=== PATIENT | female | born 1950 | race Caucasian/White ===

== ENCOUNTER → 2016-11-21 | Outpatient (CLI) | payer OTHER ==
[2016-11-21 16:56] LABS: Blood Urea Nitrogen 22 mg/dL (7-17); Cholesterol 290 mg/dL (<200); Glucose 134 mg/dL (74-99); HDL Cholesterol 60 mg/dL (40-60); Lithium 0.8 mmol/L; Non-African American GFR(MDRD) 50 (>60 ml/min/1.73 sqM); Triglycerides 151 mg/dL (<150)
[2016-11-21 20:13] LABS: Hemoglobin A1C 5.8 % (4.2-6.1)
== END | disposition home or self-care (01) ==
LOC: LABWHC1 16:17
PROVIDERS: ATTEND Psychiatry & Neurology Psychiatry
DX: Z51.81 Encounter for therapeutic drug level monitoring (principal); Z79.899 Other long term (current) drug therapy
CPT/HCPCS: 36415; 80061; 80178; 82565; 82947; 83036; 84439; 84443; 84520

== ENCOUNTER → 2017-07-07 | Outpatient (CLI) | payer MEDICARE, OTHER ==
--- NOTE | 2017-07-08 13:03 | MM ---
Reason for exam: screening (asymptomatic). Last mammogram was performed 1 year and 2 months ago. History: Patient is postmenopausal. Benign stereotactic core biopsy of the right breast, December 15, 2002. Core biopsy of the left breast. 2 core biopsies of the right breast. Physical Findings: A clinical breast exam by your physician is recommended on an annual basis and results should be correlated with mammographic findings. MG 3D Screening Mammo W/Cad Bilateral CC and MLO view(s) were taken. Prior study comparison: May 16, 2016, bilateral MG screening mammo w CAD. April 30, 2015, bilateral MG screening mammo w CAD. April 13, 2014, bilateral MG screening mammo w CAD. The breast tissue is heterogeneously dense. This may lower the sensitivity of mammography. Finding: There are typically benign round calcifications in both breasts. There is no discrete abnormality. ASSESSMENT: Benign, BI-RAD 2 RECOMMENDATION: Routine screening mammogram of both breasts in 1 year.
--- NOTE | 2017-07-08 16:23 | BD ---
EXAMINATION TYPE: MG DEXA axial skeleton. DATE OF EXAM: 07/07/2017 COMPARISON: NONE CLINICAL HISTORY: Postmenopausal female Height: 4 ft 11 IN Weight: 218 FRAX RISK QUESTIONS: Alcohol (3 or more units per day): NO Family History (Parent hip fracture): NO Glucocorticoids (More than 3mos): NO (Ex: prednisone, prednisolone, methylprednisolone, dexamethasone, and hydrocortisone). History of Fracture in Adulthood: NO Secondary Osteoporosis: 1. Type 1 Diabetes: NO 2. Hyperthyroidism: NO 3. Menopause before 45: NO 4. Malnutrition: NO 5. Chronic liver disease: NO Rheumatoid Arthritis: NO Current Tobacco Use: NO RISK FACTORS HISTORY OF: Active: NO Postmenopausal woman: UNSURE Lost more than 2 inches in height since high school: YES MEDICATIONS: Additional Medications: LITHIUM, BLOOD PRESSURE MEDS, CHOLESTEROL MEDS, POTASSIUM,ZOLOFT, XYPREXA, LASIX,CALCIUM Additional History: EXAM MEASUREMENTS: Bone mineral densitometry was performed using the [employer] System. Bone mineral density as measured about the Lumbar spine is: ----- L1-L4(G/cm2): 0.974 T Score Values are as follows: ----- L2: -1.9 ----- L3: -1.3 ----- L4: -1.3 ----- L1-L4: -1.7 Bone mineral density has: Increased 1.0% since study of: 2014 Bone mineral density about the R hip (g/cm2): 0.765 Bone mineral density about the L hip (g/cm2): 0.835 T Score values are as follows: -----R Neck: -2.0 -----L Neck: -1.5 -----R Total: -0.3 -----L Total: -0.1 Bone mineral density has: Decreased -2.2% since study of: 2014 IMPRESSION: Osteopenia (T Score between -2.5 and -1) as noted by T score values There is slightly increased risk of fracture and the patient may be considered for treatment. Re-Screen 2-5 years. NOTE: T-SCORE=SD OF THE YOUNG ADULT MEAN.
== END | disposition home or self-care (01) ==
LOC: RADMAMWWP 15:28
PROVIDERS: ATTEND Family Medicine
DX: Z12.31 Encounter for screening mammogram for malignant neoplasm of breast (principal); M85.88 Other specified disorders of bone density and structure, other site; Z78.0 Asymptomatic menopausal state
CPT/HCPCS: 77080; 77063; G0202

== ENCOUNTER → 2017-12-19 | Outpatient (CLI) | payer MEDICARE, OTHER ==
[2017-12-19 12:34] LABS: Blood Urea Nitrogen 22 mg/dL (7-17); Cholesterol 147 mg/dL (<200); Glucose 128 mg/dL (74-99); HDL Cholesterol 64 mg/dL (40-60); LDL Cholesterol,Calculated 67 mg/dL (0-99); Lithium 0.7 mmol/L; Triglycerides 81 mg/dL (<150)
[2017-12-19 12:51] LABS: T4, Free (Free Thyroxine) 1.08 ng/dL (0.78-2.19)
== END | disposition home or self-care (01) ==
LOC: LABWHC1 11:58
PROVIDERS: ATTEND Psychiatry & Neurology Psychiatry
DX: Z51.81 Encounter for therapeutic drug level monitoring (principal); Z79.899 Other long term (current) drug therapy
CPT/HCPCS: 36415; 80061; 80178; 82565; 82947; 83036; 84439; 84443; 84520

== ENCOUNTER 2018-03-06 19:39 | Emergency (ER) | payer MEDICARE, OTHER ==
--- NOTE | 2018-03-06 20:16 | ED ---
General Adult HPI - General Chief complaint: Recheck/Abnormal Lab/Rx Stated complaint: Weakness Time Seen by Provider: 03/06/18 20:04 Source: patient Mode of arrival: ambulatory Limitations: no limitations - History of Present Illness Initial comments: 67 yoF presenting with poor appetite. Patient states it began 3 weeks ago and has been ongoing. She denies any F/C, chest pain, shortness of breath, N/V/D, abdominal pain, REYES, blurred vision, changes in medications, or worsening depression. Patient states the only other symptom is generalized shakiness. Patient does have a history of hypothyroidism and states she has been compliant with her medications. Patient is also on [place] for depression. - Related Data Allergies Allergy/AdvReac Type Severity Reaction Status Date / Time No Known Allergies Allergy Verified 03/06/18 19:46 Review of Systems ROS Statement: Those systems with pertinent positive or pertinent negative responses have been documented in the HPI. Review of Systems Constitutional: Denies fever, chills Eyes: Denies change in vision, Denies pain Ears, nose, mouth, throat: Denies headaches, Denies sore throat Cardiovascular: Denies chest pain. Denies palpitations Respiratory: Denies shortness of breath, Denies cough Gastrointestinal: Denies abdominal pain. Denies nausea, vomiting, diarrhea. Positive poor appetite Genitourinary: Denies hematuria, Denies infections Musculoskeletal: Denies pain, Denies swelling Integumentary: Denies rash Neurological: Denies headache, focal weakness, focal numbness. Positive shakiness Psychiatric: Denies anxiety, Denies depression Hematologic/Lymphatic: Denies easy bleeding or bruising ROS Other: All systems not noted in ROS Statement are negative. Past Medical History Past Medical History: Hyperlipidemia, Hypertension, Thyroid Disorder History of Any Multi-Drug Resistant Organisms: None Reported Past Surgical History: Hysterectomy, Tubal Ligation Past Psychological History: Anxiety, Depression Smoking Status: Former smoker Past Alcohol Use History: None Reported Past Drug Use History: None Reported General Exam - General Exam Comments Initial Comments: General: Awake, alert, No acute Distress HENT: Normocephalic. Atraumatic Eyes: PERRL. EOMI. No scleral icterus. No injected conjunctiva Neck: Full ROM. No thyromegaly or nodules Chest/Lungs: Clear to auscultation bilaterally. No wheezing, rhonchi, or rales Cardiac: Regular rate, rhythm. No murmurs or rubs Abdomen/GI: Soft, nontender, nondistended. No rebound, guarding, or rigidity. Musculoskeletal: Full ROM Skin: Warm, dry, intact Neurologic: A/Ox3, no weakness, no sensory deficit, no abnormal gait, no coordination deficit Limitations: no limitations Course Vital Signs 03/06/18 19:43 Temperature 98.4 F Pulse Rate 80 Respiratory 20 Rate Blood Pressure 131/60 O2 Sat by Pulse 96 Oximetry Medical Decision Making - Medical Decision Making 67-year-old female presenting with decreased appetite. Initial exam the patient is awake, alert, no acute distress. VSS. Patient has no other complaints besides decreased appetite. Laboratory workup reveals hypernatremia , ROSSY, and dehydration. At thi time no further emergent workup is indicated. Discussed with the patient following up with PCP on Thursday and staying hydrated. She was given return to ED instruction. Patient stable for discharge. - Lab Data Result diagrams: 03/06/18 20:50 03/06/18 20:50 Lab Results 03/06/18 03/06/18 03/06/18 Range/Units 20:50 20:50 20:50 WBC 9.5 (3.8-10.6) k/uL RBC 4.29 (3.80-5.40) m/uL Hgb 14.0 (11.4-16.0) gm/dL Hct 41.1 (34.0-46.0) % MCV 95.6 (80.0-100.0) fL MCH 32.6 (25.0-35.0) pg MCHC 34.1 (31.0-37.0) g/dL RDW 12.4 (11.5-15.5) % Plt Count 230 (150-450) k/uL Neutrophils % 63 % Lymphocytes % 27 % Monocytes % 5 % Eosinophils % 2 % Basophils % 0 % Neutrophils # 6.1 (1.3-7.7) k/uL Lymphocytes # 2.6 (1.0-4.8) k/uL Monocytes # 0.5 (0-1.0) k/uL Eosinophils # 0.2 (0-0.7) k/uL Basophils # 0.0 (0-0.2) k/uL Sodium 149 H (137-145) mmol/L Potassium 4.1 (3.5-5.1) mmol/L Chloride 109 H (98-107) mmol/L Carbon Dioxide 26 (22-30) mmol/L Anion Gap 14 mmol/L BUN 25 H (7-17) mg/dL Creatinine 1.10 H (0.52-1.04) mg/dL Est GFR (CKD-EPI)AfAm 61 (>60 ml/min/1.73 sqM) Est GFR (CKD-EPI)NonAf 53 (>60 ml/min/1.73 sqM) Glucose 101 H (74-99) mg/dL Calcium 10.4 H (8.4-10.2) mg/dL TSH 0.508 (0.465-4.680) mIU/L Urine Color Yellow Urine Appearance Clear (Clear) Urine pH 6.5 (5.0-8.0) Ur Specific [place] 1.015 (1.001-1.035) Urine Protein Negative (Negative) Urine Glucose (UA) Negative (Negative) Urine Ketones Negative (Negative) Urine Blood Trace H (Negative) Urine Nitrite Negative (Negative) Urine Bilirubin Negative (Negative) Urine Urobilinogen <2.0 (<2.0) mg/dL Ur Leukocyte Esterase Negative (Negative) Urine RBC <1 (0-5) /hpf Urine WBC 1 (0-5) /hpf Ur Squamous Epith Cells 1 (0-4) /hpf [place] 0.5 mmol/L Disposition Clinical Impression: Poor appetite, Hypernatremia, ROSSY (acute kidney injury) Disposition: HOME SELF-CARE Condition: Good Additional Instructions: Drink lots of water. Follow up with your primary care doctor on Thursday. Is patient prescribed a controlled substance at d/c from ED?: No Referrals: González Nunez MD [Primary Care Provider] - 1-2 days
[2018-03-06 21:04] LABS: Basophils % (A) 0 %; Eosinophils # (A) 0.2 k/uL (0-0.7); Eosinophils % (A) 2 %; HCT 41.1 % (34.0-46.0); Lymphocytes # (A) 2.6 k/uL (1.0-4.8); Lymphocytes % (A) 27 %; MCH 32.6 pg (25.0-35.0); MCHC 34.1 g/dL (31.0-37.0); MCV 95.6 fL (80.0-100.0); Mean Platelet Volume 6.9; Monocytes # (A) 0.5 k/uL (0-1.0); Monocytes % (A) 5 %; Neutrophils # (A) 6.1 k/uL (1.3-7.7); Neutrophils % (A) 63 %; Platelet Count 230 k/uL (150-450); RBC 4.29 m/uL (3.80-5.40); RDW 12.4 % (11.5-15.5); WBC 9.5 k/uL (3.8-10.6)
[2018-03-06 21:09] LABS: Appearance,Urine Clear (Clear); Bilirubin,Urine Negative (Negative); Blood,Urine Trace (Negative); Color,Urine Yellow; Glucose,Urine (UA) Negative (Negative); Ketones,Urine Negative (Negative); Leukocyte Esterase,Urine Negative (Negative); Nitrite,Urine Negative (Negative); PH, Urine 6.5 (5.0-8.0); Protein,Urine Negative (Negative); RBC,Urine <1 /hpf (0-5); Specific Gravity,Urine 1.015 (1.001-1.035); Squamous Epithelial Cell,Urine 1 /hpf (0-4); Urobilinogen,Urine <2.0 mg/dL (<2.0); WBC,Urine 1 /hpf (0-5)
[2018-03-06 21:16] LABS: Calcium 10.4 mg/dL (8.4-10.2); Lithium 0.5 mmol/L; Potassium 4.1 mmol/L (3.5-5.1)
[2018-03-06 22:29] VITALS: BP 103/59; PULSE 74; RESP 18; TEMP 97.4
== END 2018-03-06 22:48 | disposition home or self-care (01) ==
LOC: EC 19:39
DX: E87.0 Hyperosmolality and hypernatremia (principal); N17.9 Acute kidney failure, unspecified; E86.0 Dehydration; R63.8 Other symptoms and signs concerning food and fluid intake; E03.9 Hypothyroidism, unspecified; F32.9 Major depressive disorder, single episode, unspecified; Z87.891 Personal history of nicotine dependence; Z79.899 Other long term (current) drug therapy
CPT/HCPCS: 36415; 80048; 80178; 81001; 84443; 85025; 99284

== ENCOUNTER → 2018-04-23 | Outpatient (CLI) | payer MEDICARE, OTHER ==
--- NOTE | 2018-04-23 18:50 | CT ---
EXAMINATION TYPE: CT brain wo con DATE OF EXAM: 04/23/2018 COMPARISON: 11/07/2011 HISTORY: Memory loss CT DLP: 1055 mGycm Automated exposure control for dose reduction was used. FINDINGS: There is mild cerebral cortical atrophy. There is no mass effect nor midline shift. There is no sign of intracranial hemorrhage. The calvarium appears intact. IMPRESSION: MILD ATROPHY. NO ACUTE INTRACRANIAL ABNORMALITY. THERE IS SOME OPACIFICATION OF THE RIGHT MASTOID AIR CELLS COMPARED TO OLD EXAM CONSISTENT WITH MASTOIDITIS.
== END | disposition home or self-care (01) ==
LOC: RADCTMAIN 15:46
PROVIDERS: ATTEND Family Medicine
DX: G31.9 Degenerative disease of nervous system, unspecified (principal)
CPT/HCPCS: 70450

== ENCOUNTER → 2018-05-08 | Outpatient (CLI) | payer MEDICARE, OTHER ==
[2018-05-08 11:27] LABS: Lithium 0.9 mmol/L
[2018-05-08 11:44] LABS: T4, Free (Free Thyroxine) 1.43 ng/dL (0.78-2.19)
== END | disposition home or self-care (01) ==
LOC: LABWHC1 10:41
PROVIDERS: ATTEND Psychiatry & Neurology Psychiatry
DX: Z51.81 Encounter for therapeutic drug level monitoring (principal); Z79.899 Other long term (current) drug therapy
CPT/HCPCS: 36415; 80178; 82565; 84439; 84443; 84520

== ENCOUNTER → 2018-06-05 | Outpatient (CLI) | payer MEDICARE, OTHER | END | disposition home or self-care (01) | LOC: LABWHC1 10:51 | PROVIDERS: ATTEND Psychiatry & Neurology Psychiatry | DX: Z51.81 Encounter for therapeutic drug level monitoring (principal); Z79.899 Other long term (current) drug therapy | CPT/HCPCS: 36415; 82565; 84520 ==

== ENCOUNTER → 2018-07-03 | Outpatient (CLI) | payer MEDICARE, OTHER | END | disposition home or self-care (01) | LOC: LABWHC1 11:36 | PROVIDERS: ATTEND Psychiatry & Neurology Psychiatry | DX: Z51.81 Encounter for therapeutic drug level monitoring (principal); Z79.899 Other long term (current) drug therapy | CPT/HCPCS: 36415; 82565; 84520 ==

== ENCOUNTER → 2018-07-08 | Outpatient (CLI) | payer MEDICARE, OTHER ==
--- NOTE | 2018-07-13 11:26 | MM ---
Reason for exam: screening (asymptomatic). Last mammogram was performed 1 year ago. History: Patient is postmenopausal. Benign stereotactic core biopsy of the right breast, December 15, 2002. Core biopsy of the left breast. 2 core biopsies of the right breast. Physical Findings: A clinical breast exam by your physician is recommended on an annual basis and results should be correlated with mammographic findings. MG 3D Screening Mammo W/Cad Bilateral CC and MLO view(s) were taken. Prior study comparison: July 07, 2017, bilateral MG 3d screening mammo w/cad. May 16, 2016, bilateral MG screening mammo w CAD. The breast tissue is heterogeneously dense. This may lower the sensitivity of mammography. Previous mammotome biopsy in the right breast. No significant changes when compared with prior studies. ASSESSMENT: Negative, BI-RAD 1 RECOMMENDATION: Routine screening mammogram of both breasts in 1 year.
== END | disposition home or self-care (01) ==
LOC: RADMAMWWP 16:14
PROVIDERS: ATTEND Family Medicine
DX: Z12.31 Encounter for screening mammogram for malignant neoplasm of breast (principal)
CPT/HCPCS: 77063; 77067

== ENCOUNTER → 2018-09-13 | Outpatient (CLI) | payer MEDICARE ==
--- NOTE | 2018-09-14 14:41 | XR ---
Thoracic spine HISTORY: Tingling and numbness in hands, paresthesia 3 views of the thoracic spine There is a mild spinal curvature. Multilevel spondylosis is present. Thoracic vertebral bodies show h eight and alignment. No evident paraspinal mass. Bone mineralization is reduced. Disc spaces reduced in the midthoracic spine. IMPRESSION: Thoracic spondylosis. Suspect degenerative disc disease.
--- NOTE | 2018-09-14 14:42 | XR ---
Cervical spine HISTORY: Paresthesia 5 views of the cervical spine There is multilevel facet arthropathy. No evident foraminal encroachment. Cervical vertebral bodies s how preserved height and alignment. Bone mineralization is reduced. Mild loss of disc height C5-6. Th ere is associated spondylosis. IMPRESSION: Osteopenia. Mild degenerative disc disease. Cervical MRI may be of benefit.
== END | disposition home or self-care (01) ==
LOC: RADXRMAIN 16:30
PROVIDERS: ATTEND Nurse Practitioner
DX: M47.814 Spondylosis without myelopathy or radiculopathy, thoracic region (principal); M50.30 Other cervical disc degeneration, unspecified cervical region; M85.88 Other specified disorders of bone density and structure, other site
CPT/HCPCS: 72050; 72072

== ENCOUNTER 2019-01-10 13:56 | Emergency (ER) | payer MEDICARE, OTHER ==
[2019-01-10 14:05] VITALS: RESP 18; TEMP 98.3
[2019-01-10] MEDS ORDERED: ONDANSETRON 4 MG/2 ML VIAL IVP STA (14:33)
[2019-01-10] MEDS ORDERED: LORazepam 2 MG/ML INJ IV STA (14:33)
[2019-01-10] MEDS ORDERED: SODIUM CHLORIDE 0.9% 1,000 ML IV STA (14:33)
--- NOTE | 2019-01-10 15:05 | XR ---
EXAMINATION TYPE: XR KUB DATE OF EXAM: 01/10/2019 COMPARISON: NONE HISTORY: Pain TECHNIQUE: One view abdominal series FINDINGS: The osseous structures are intact. The bowel gas pattern is nonspecific. Curvature the spine noted. Lung do are clear. Calcifications in the pelvis are too small to characterize. Findings are nonsp ecific.. IMPRESSION: 1. Nonspecific abdomen.
--- NOTE | 2019-01-10 15:13 | ED ---
General Adult HPI - General Chief complaint: Nausea/Vomiting/Diarrhea Stated complaint: Vomiting Time Seen by Provider: 01/10/19 14:12 Source: patient, RN notes reviewed, old records reviewed Mode of arrival: ambulatory Limitations: no limitations - History of Present Illness Initial comments: 68-year-old female patient with past medical history of depression, anxiety, hyperlipidemia presents to ED with approximately 2 days of nausea and vomiting. Patient reports that she has only been eating peaches and cottage cheese the last 4 weeks. Patient states that is all she wants to eat. Now patient reports that when she attempts to eat peaches or cottage cheese she becomes nauseous and vomits. Patient states that this is ongoing for 2 days. Patient denies any abdominal pain. Patient denies any chest pain or shortness of breath. Patient denies all other complaints. Systemic: Pt denies fatigue, myalgia, fever/chills, rash. Pt denies weakness, night sweats, weight loss. Neuro: Pt denies headache, visual disturbances, syncope or pre-syncope. HEENT: Pt denies ocular discharge or irritation, otalgia, rhinorrhea, pharyngitis or notable lymphadenopathy. Cardiopulmonary: Pt denies chest pain, SOB, heart palpitations, dyspnea on exertion. Abdominal/GI: Pt denies abdominal pain, diarrhea. : Pt denies dysuria, burning w/ urination, frequency/urgency. Denies new onset urinary or bowel incontinence. MSK: Pt denies myalgia, loss of strength or function in extremities. Neuro: Pt denies new onset weakness, paresthesias. - Related Data Home Medications Medication Instructions Recorded Confirmed Atenolol 25 mg PO DAILY 01/10/19 01/10/19 Atorvastatin Calcium [Lipitor] 40 mg PO DAILY 01/10/19 01/10/19 Calcium Carbonate/Vitamin D3 2 tab PO DAILY 01/10/19 01/10/19 [Calcium 600-Vit D3 400 Tablet] Furosemide [Lasix] 40 mg PO DAILY 01/10/19 01/10/19 Levothyroxine Sodium [Synthroid] 100 mcg PO DAILY 01/10/19 01/10/19 [place] Carbonate [Lithobid] 600 mg PO HS 01/10/19 01/10/19 OLANZapine [ZyPREXA] 5 mg PO HS 01/10/19 01/10/19 Potassium Chloride 8 meq PO DAILY 01/10/19 01/10/19 fluvoxaMINE MALEATE [Fluvoxamine 100 mg PO BID 01/10/19 01/10/19 Maleate] metFORMIN HCL [Glucophage] 500 mg PO BID 01/10/19 01/10/19 Previous Rx's Medication Instructions Recorded Ondansetron Odt [Zofran ODT] 4 mg PO Q8HR PRN #20 tab 01/10/19 Ondansetron [Zofran] 4 mg PO Q8HR PRN #15 tab 01/10/19 Allergies Allergy/AdvReac Type Severity Reaction Status Date / Time TRAVIST-D AdvReac Uncoded 01/10/19 14:49 Review of Systems ROS Statement: Those systems with pertinent positive or pertinent negative responses have been documented in the HPI. ROS Other: All systems not noted in ROS Statement are negative. Past Medical History Past Medical History: Hyperlipidemia, Hypertension, Thyroid Disorder History of Any Multi-Drug Resistant Organisms: None Reported Past Surgical History: Hysterectomy, Tubal Ligation Past Psychological History: Anxiety, Depression Smoking Status: Never smoker Past Alcohol Use History: None Reported Past Drug Use History: None Reported General Exam - General Exam Comments Initial Comments: Constitutional: NAD, AOX3, Pt has pleasant affect. HEENT: NC/AT, trachea midline, neck supple, no lymphadenopathy. Posterior pharynx non erythematous, without exudates. External ears appear normal, without discharge. Mucous membranes moist. Eyes PERRLA, EOM intact. There is no scleral icterus. No pallor noted. Cardiopulmonary: RRR, no murmurs, rubs or gallops, no JVD noted. Lungs CTAB in anterior and posterior do. No peripheral edema. Abdominal exam: Abdomen soft and non-distended. Abdomen non-tender to palpation in all 4 quadrants. Bowel sounds active in LLQ. No hepatosplenomegaly. No ecchymosis Neuro: CN II-XII grossly intact. No nuchal rigidity. MSK: No posterior calf tenderness bilaterally, homans sign negative bilaterally. Posterior tibialis and radial pulse +2 bilaterally. Sensation intact in upper and lower extremities. Full active ROM in upper and lower extremities, 5/5 stregnth. Limitations: no limitations Course Vital Signs 01/10/19 01/10/19 14:01 15:26 Temperature 98.3 F Pulse Rate 117 H 79 Respiratory 18 18 Rate Blood Pressure 137/84 131/67 O2 Sat by Pulse 96 97 Oximetry Medical Decision Making - Medical Decision Making 68-year-old female patient with past medical history of depression, anxiety, hyperlipidemia, type 2 diabetes presents to ED with approximately 2 days of nausea and vomiting. Patient reports that she has only been eating peaches and cottage cheese the last 4 weeks. Patient states that is all she wants to eat. Now patient reports that when she attempts to eat peaches or cottage cheese she becomes nauseous and vomits. Patient states that this is ongoing for 2 days. Pt VSS, afebrile. Physical exam did not display acute pathology. Abdomen nontender to palpation. Laboratory investigations revealed glucose 131. KUB displayed nonspecific abdomen. Patient tolerating oral intake with Zofran. Patient to be discharged with prescription of Zofran, will follow-up with primary care provider in 1-2 days. Case discussed with Dr. Wood. - Lab Data Lab Results 01/10/19 Range/Units 16:01 POC Glucose (mg/dL) 131 H (75-99) mg/dL POC Glu Archivist Luzma Lucio Disposition Clinical Impression: Nausea & vomiting Disposition: HOME SELF-CARE Condition: Stable Instructions (If sedation given, give patient instructions): Acute Nausea and Vomiting (ED) Additional Instructions: Patient to adhere to previously discussed treatment plan and will take medication(s) as directed. Patient to follow up with PCP in 1-2 days. Patient to return to ED if symptoms do not improve. Please follow-up with primary care provider. Please use Zofran as needed for nausea. Please return to ED if new s/sx develop or if condition worsens in anyway. Prescriptions: Ondansetron [Zofran] 4 mg PO Q8HR PRN #15 tab PRN Reason: Nausea Ondansetron Odt [Zofran ODT] 4 mg PO Q8HR PRN #20 tab PRN Reason: Nausea Is patient prescribed a controlled substance at d/c from ED?: No Referrals: [facility] [Primary Care Provider] - 1-2 days
[2019-01-10 15:27] VITALS: BP 131/67; PULSE 79
[2019-01-10 16:05] LABS: Glucose,Whole Blood 131 mg/dL (75-99)
== END 2019-01-10 16:38 | disposition home or self-care (01) ==
LOC: EC 13:56
DX: R11.2 Nausea with vomiting, unspecified (principal); E78.5 Hyperlipidemia, unspecified; I10 Essential (primary) hypertension; E07.9 Disorder of thyroid, unspecified; E11.9 Type 2 diabetes mellitus without complications; F32.9 Major depressive disorder, single episode, unspecified; F41.9 Anxiety disorder, unspecified; Z88.8 Allergy status to other drugs, medicaments and biological substances; Z79.84 Long term (current) use of oral hypoglycemic drugs; Z79.890 Hormone replacement therapy; Z79.899 Other long term (current) drug therapy
CPT/HCPCS: 99284; 96374; 96375; 36415; 74018; J2060; J2405

== ENCOUNTER 2019-01-15 15:15 | Inpatient (IN) | payer MEDICARE, MEDICAID ==
--- NOTE | 2019-01-15 15:37 | ED ---
General Adult HPI - General Chief complaint: Psychiatric Symptoms Stated complaint: psychiatric eval Time Seen by Provider: 01/15/19 15:18 Source: patient, EMS, RN notes reviewed Mode of arrival: EMS Limitations: no limitations - History of Present Illness Initial comments: Patient is a pleasant 68-year-old female presenting to the emergency department because she is "fed up". Patient states she has not been sleeping well and does have racing thoughts. Patient denies suicidal or homicidal thoughts. Patient denies hallucinations. Patient denies alcohol or street drug use. No new physical complaints. Patient states she has not been eating well because she has lost her appetite. Patient feels she may be losing some weight. Patient canceled Meals on Wheels. Patient has been off her medications around 4 months. Patient has not made her [facility] appointments the last 4 months as well. - Related Data Home Medications Medication Instructions Recorded Confirmed Atenolol 25 mg PO DAILY 01/10/19 01/15/19 Atorvastatin Calcium [Lipitor] 40 mg PO DAILY 01/10/19 01/15/19 Calcium Carbonate/Vitamin D3 2 tab PO DAILY 01/10/19 01/15/19 [Calcium 600-Vit D3 400 Tablet] Furosemide [Lasix] 40 mg PO DAILY 01/10/19 01/15/19 Levothyroxine Sodium [Synthroid] 100 mcg PO DAILY 01/10/19 01/15/19 [place] Carbonate [Lithobid] 600 mg PO HS 01/10/19 01/15/19 OLANZapine [ZyPREXA] 5 mg PO HS 01/10/19 01/15/19 Potassium Chloride 8 meq PO DAILY 01/10/19 01/15/19 fluvoxaMINE MALEATE [Fluvoxamine 100 mg PO BID 01/10/19 01/15/19 Maleate] metFORMIN HCL [Glucophage] 500 mg PO BID 01/10/19 01/15/19 Allergies Allergy/AdvReac Type Severity Reaction Status Date / Time TRAVIST-D AdvReac Uncoded 01/15/19 16:42 Review of Systems ROS Statement: Those systems with pertinent positive or pertinent negative responses have been documented in the HPI. ROS Other: All systems not noted in ROS Statement are negative. Constitutional: Denies: fever Eyes: Denies: eye pain ENT: Denies: ear pain Respiratory: Denies: cough, dyspnea Cardiovascular: Denies: chest pain Endocrine: Reports: fatigue Gastrointestinal: Denies: abdominal pain Genitourinary: Denies: dysuria Musculoskeletal: Denies: back pain Skin: Denies: rash Psychiatric: Denies: auditory hallucinations, visual hallucinations, homicidal thoughts, suicidal thoughts Past Medical History Past Medical History: Hyperlipidemia, Hypertension, Thyroid Disorder History of Any Multi-Drug Resistant Organisms: None Reported Past Surgical History: Hysterectomy, Tubal Ligation Past Psychological History: Anxiety, Depression Smoking Status: Never smoker Past Alcohol Use History: None Reported Past Drug Use History: None Reported General Exam Limitations: no limitations General appearance: alert, in no apparent distress Head exam: Present: atraumatic Eye exam: Present: normal appearance, PERRL Neck exam: Present: normal inspection Respiratory exam: Present: normal lung sounds bilaterally Cardiovascular Exam: Present: regular rate, normal rhythm GI/Abdominal exam: Present: soft. Absent: tenderness Extremities exam: Present: normal inspection Neurological exam: Present: alert Psychiatric exam: Present: flat affect Skin exam: Present: normal color. Absent: rash Course Vital Signs 01/15/19 01/15/19 15:30 18:37 Temperature 98.6 F 97.8 F Pulse Rate 75 94 Respiratory 18 18 Rate Blood Pressure 133/84 133/64 O2 Sat by Pulse 100 97 Oximetry EKG Findings - EKG Comments: EKG Findings:: Normal sinus rhythm 98. MS 134. QRS 76. QT 338. QTC were 31. Normal axis. Normal QRS. No acute ST change. Medical Decision Making - Medical Decision Making Patient was seen by mental health services with plans for transfer for psychiatric admission. Positive clinical certificate completed. Reportedly family also had concerns that patient was urinating on herself and not using the restroom. - Lab Data Result diagrams: 01/15/19 16:30 01/15/19 16:30 Lab Results 01/15/19 01/15/19 01/15/19 Range/Units 16:30 16:30 16:30 WBC 9.0 (3.8-10.6) k/uL RBC 4.68 (3.80-5.40) m/uL Hgb 15.1 (11.4-16.0) gm/dL Hct 47.1 H (34.0-46.0) % MCV 100.6 H (80.0-100.0) fL MCH 32.3 (25.0-35.0) pg MCHC 32.1 (31.0-37.0) g/dL RDW 12.5 (11.5-15.5) % Plt Count 241 (150-450) k/uL Neutrophils % 68 % Lymphocytes % 24 % Monocytes % 4 % Eosinophils % 2 % Basophils % 0 % Neutrophils # 6.1 (1.3-7.7) k/uL Lymphocytes # 2.2 (1.0-4.8) k/uL Monocytes # 0.4 (0-1.0) k/uL Eosinophils # 0.2 (0-0.7) k/uL Basophils # 0.0 (0-0.2) k/uL Sodium 144 (137-145) mmol/L Potassium 4.1 (3.5-5.1) mmol/L Chloride 113 H (98-107) mmol/L Carbon Dioxide 24 (22-30) mmol/L Anion Gap 7 mmol/L BUN 24 H (7-17) mg/dL Creatinine 0.87 (0.52-1.04) mg/dL Est GFR (CKD-EPI)AfAm 81 (>60 ml/min/1.73 sqM) Est GFR (CKD-EPI)NonAf 70 (>60 ml/min/1.73 sqM) Glucose 128 H (74-99) mg/dL Calcium 11.2 H (8.4-10.2) mg/dL Urine Color Yellow Urine Appearance Cloudy H (Clear) Urine pH 6.5 (5.0-8.0) Ur Specific [place] 1.013 (1.001-1.035) Urine Protein Negative (Negative) Urine Glucose (UA) Negative (Negative) Urine Ketones Negative (Negative) Urine Blood Negative (Negative) Urine Nitrite Negative (Negative) Urine Bilirubin Negative (Negative) Urine Urobilinogen <2.0 (<2.0) mg/dL Ur Leukocyte Esterase Trace H (Negative) Urine RBC <1 (0-5) /hpf Urine WBC 8 H (0-5) /hpf Ur Squamous Epith Cells 11 H (0-4) /hpf Amorphous Sediment Rare H (None) /hpf Hyaline Casts 1 (0-2) /lpf Urine Mucus Rare H (None) /hpf Urine Opiates Screen Not Detected (NotDetected) Ur Oxycodone Screen Not Detected (NotDetected) Urine Methadone Screen Not Detected (NotDetected) Ur Propoxyphene Screen Not Detected (NotDetected) Ur Barbiturates Screen Not Detected (NotDetected) U Tricyclic Antidepress Not Detected (NotDetected) Ur Phencyclidine Scrn Not Detected (NotDetected) Ur Amphetamines Screen Not Detected (NotDetected) U Methamphetamines Scrn Not Detected (NotDetected) U Benzodiazepines Scrn Not Detected (NotDetected) Urine Cocaine Screen Not Detected (NotDetected) U Marijuana (THC) Screen Not Detected (NotDetected) Serum Alcohol <10 mg/dL Disposition Clinical Impression: Depression Disposition: TRANSFER TO PSYCH HOSP/UNIT Is patient prescribed a controlled substance at d/c from ED?: No Referrals: [facility] [Primary Care Provider] - 1-2 days
[2019-01-15 16:46] LABS: Basophils % (A) 0 %; Eosinophils # (A) 0.2 k/uL (0-0.7); Eosinophils % (A) 2 %; HCT 47.1 % (34.0-46.0); HGB 15.1 gm/dL (11.4-16.0); Lymphocytes # (A) 2.2 k/uL (1.0-4.8); Lymphocytes % (A) 24 %; MCH 32.3 pg (25.0-35.0); MCHC 32.1 g/dL (31.0-37.0); MCV 100.6 fL (80.0-100.0); Mean Platelet Volume 7.1; Monocytes # (A) 0.4 k/uL (0-1.0); Monocytes % (A) 4 %; Neutrophils # (A) 6.1 k/uL (1.3-7.7); Neutrophils % (A) 68 %; Platelet Count 241 k/uL (150-450); RBC 4.68 m/uL (3.80-5.40); RDW 12.5 % (11.5-15.5)
[2019-01-15 16:49] LABS: Amorphous Sediment,Urine Rare /hpf; Appearance,Urine Cloudy (Clear); Bilirubin,Urine Negative (Negative); Blood,Urine Negative (Negative); Color,Urine Yellow; Glucose,Urine (UA) Negative (Negative); Hyaline Casts,Urine 1 /lpf (0-2); Ketones,Urine Negative (Negative); Leukocyte Esterase,Urine Trace (Negative); Mucus,Urine Rare /hpf; Nitrite,Urine Negative (Negative); PH, Urine 6.5 (5.0-8.0); Protein,Urine Negative (Negative); RBC,Urine <1 /hpf (0-5); Specific Gravity,Urine 1.013 (1.001-1.035); Squamous Epithelial Cell,Urine 11 /hpf (0-4); Urobilinogen,Urine <2.0 mg/dL (<2.0); WBC,Urine 8 /hpf (0-5)
[2019-01-15 16:54] LABS: Alcohol <10 mg/dL; Anion Gap 7 mmol/L; Blood Urea Nitrogen 24 mg/dL (7-17); Calcium 11.2 mg/dL (8.4-10.2); Carbon Dioxide 24 mmol/L (22-30); Chloride 113 mmol/L (98-107); Glucose 128 mg/dL (74-99); Potassium 4.1 mmol/L (3.5-5.1); Sodium 144 mmol/L (137-145)
[2019-01-15 16:58] LABS: Amphetamine Screen,Urine Not Detected (NotDetected); Barbiturate Screen,Urine Not Detected (NotDetected); Benzodiazepines Screen,Urine Not Detected (NotDetected); Cocaine Screen,Urine Not Detected (NotDetected); Methadone Screen, Urine Not Detected (NotDetected); Opiate Screen,Urine Not Detected (NotDetected); Oxycodone Screen, Urine Not Detected (NotDetected); Phencyclidine Screen,Urine Not Detected (NotDetected); Tricyclic Antidepressant,Urine Not Detected (NotDetected); Urn Cannabinoid Scrn Not Detected (NotDetected)
[2019-01-15] MEDS: LORazepam 1 MG TAB PO STA ×2 (18:30→18:32)
[2019-01-15] MEDS ORDERED: LORazepam 2 MG/ML INJ IM STA (18:34)
[2019-01-15] MEDS ORDERED: ACETAMINOPHEN TAB 325 MG TAB PO PRN (20:17)
[2019-01-15] MEDS ORDERED: MAGNESIUM HYDROXIDE 2,400 MG/10 ML CUP PO PRN (20:17)
[2019-01-16 09:18] LABS: Lithium 0.7 mmol/L
[2019-01-16] MEDS: ONDANSETRON ODT 4 MG TAB PO PRN (12:04)
--- NOTE | 2019-01-16 13:19 | P.CONS ---
History of Present Illness - Reason for Consult Medical clearance - History of Present Illness 68-year-old female admitted for major depression patient apparently was on antidepressant medications as well as metformin. Patient's hemoglobin A1c is 5.8 patient blood pressures fairly well-controlled patient has not been taking these medications because of which I'm not in a start her on antihypertensive medications which she is supposed to be on. Just monitor the vitals. Patient does have some pre-diabetes can continue metformin but this is not emergency can be resumed as an outpatient if needed and if the PCP believes she need to be on that medication. Patient does have mild hypertriglyceridemia LDL is only 50 I'm not to start any medications at this time this has mild hyperprolactinemia can be controlled with diet as well. Patient is complaining of mild nausea and epigastric abdominal discomfort probably from peptic ulcer disease for which we'll use as needed Zofran and the Protonix. Patient can be discharged on 14 days of Protonix needed. Patient does have dry legs and does have some onychomycosis which can be addressed as an outpatient as well. Patient is still quite a bit depressed and is comparing of anxiety which will be addressed by psychiatric rest. Patient denied any smoking history Review of Systems REVIEW OF SYSTEMS: CONSTITUTIONAL: No fever, no malaise, no fatigue. HEENT: No recent visual problems or hearing problems. Denied any sore throat. CARDIOVASCULAR: No chest pain, orthopnea, PND, no palpitations, no syncope. PULMONARY: No shortness of breath, no cough, no hemoptysis. GASTROINTESTINAL: As mentioned in HPI NEUROLOGICAL: No headaches, no weakness, no numbness. HEMATOLOGICAL: Denies any bleeding or petechiae. GENITOURINARY: Denies any burning micturition, frequency, or urgency. MUSCULOSKELETAL/RHEUMATOLOGICAL: Denies any joint pain, swelling, or any muscle pain. ENDOCRINE: Denies any polyuria or polydipsia. The rest of the 14-point review of systems is negative. Past Medical History Past Medical History: Hyperlipidemia, Hypertension, Skin Disorder, Thyroid Disorder Additional Past Medical History / Comment(s): Dry, scaly bilaterial feet. C hronic vomiting per patient History of Any Multi-Drug Resistant Organisms: None Reported Past Surgical History: Hysterectomy, Tubal Ligation Past Anesthesia/Blood Transfusion Reactions: No Reported Reaction Past Psychological History: Anxiety, Depression Additional Psychological History / Comment(s): Pt states that she has a history of ECT treatments times 9 about 9 years ago. Smoking Status: Never smoker Past Alcohol Use History: None Reported Past Drug Use History: None Reported - Past Family History Father Family Medical History: Unable to Obtain Additional Family Medical History / Comment(s): Patient states that she did not know her father. Mother Family Medical History: Unable to Obtain Additional Family Medical History / Comment(s): Patient states that she does not know. Daughter(s) Family Medical History: No Reported History Son(s) Family Medical History: No Reported History Medications and Allergies Home Medications Medication Instructions Recorded Confirmed Type Atenolol 25 mg PO DAILY 01/10/19 01/15/19 History Atorvastatin Calcium [Lipitor] 40 mg PO DAILY 01/10/19 01/15/19 History Calcium Carbonate/Vitamin D3 2 tab PO DAILY 01/10/19 01/15/19 History [Calcium 600-Vit D3 400 Tablet] Furosemide [Lasix] 40 mg PO DAILY 01/10/19 01/15/19 History Levothyroxine Sodium [Synthroid] 100 mcg PO DAILY 01/10/19 01/15/19 History [place] Carbonate [Lithobid] 600 mg PO HS 01/10/19 01/15/19 History OLANZapine [ZyPREXA] 5 mg PO HS 01/10/19 01/15/19 History Potassium Chloride 8 meq PO DAILY 01/10/19 01/15/19 History fluvoxaMINE MALEATE [Fluvoxamine 100 mg PO BID 01/10/19 01/15/19 History Maleate] metFORMIN HCL [Glucophage] 500 mg PO BID 01/10/19 01/15/19 History Allergies Allergy/AdvReac Type Severity Reaction Status Date / Time TRAVIST-D AdvReac Unknown Uncoded 01/15/19 21:52 Physical Exam Vitals: Vital Signs Temp Pulse Pulse Resp BP BP Pulse Ox 01/16/19 04:41 98.3 F 88 14 114/59 01/15/19 21:14 98.7 F 108 H 16 140/84 97 01/15/19 18:37 97.8 F 94 18 133/64 97 01/15/19 15:30 98.6 F 75 18 133/84 100 Intake and Output 01/15/19 01/16/19 01/16/19 21:59 06:59 14:59 Other: Weight 76.2 kg PHYSICAL EXAMINATION: GENERAL: The patient is alert and oriented x3, not in any acute distress. Well developed, well nourished. HEENT: Pupils are round and equally reacting to light. EOMI. No scleral icterus. No conjunctival pallor. Normocephalic, atraumatic. No pharyngeal erythema. No thyromegaly. CARDIOVASCULAR: S1 and S2 present. No murmurs, rubs, or gallops. PULMONARY: Chest is clear to auscultation, no wheezing or crackles. ABDOMEN: Soft, nontender, nondistended, normoactive bowel sounds. No palpable organomegaly. MUSCULOSKELETAL: No joint swelling or deformity. EXTREMITIES: No cyanosis, clubbing, or pedal edema. NEUROLOGICAL: Gross neurological examination did not reveal any focal deficits. SKIN: No rashes. Results CBC & Chem 7: 01/15/19 16:30 01/15/19 16:30 Labs: Abnormal Lab Results - Last 24 Hours (Table) 01/15/19 01/15/19 01/15/19 Range/Units 16:30 16:30 16:30 Hct 47.1 H (34.0-46.0) % MCV 100.6 H (80.0-100.0) fL Chloride 113 H (98-107) mmol/L BUN 24 H (7-17) mg/dL Glucose 128 H (74-99) mg/dL Calcium 11.2 H (8.4-10.2) mg/dL LDL Cholesterol, Calc (0-99) mg/dL Urine Appearance Cloudy H (Clear) Ur Leukocyte Esterase Trace H (Negative) Urine WBC 8 H (0-5) /hpf Ur Squamous Epith Cells 11 H (0-4) /hpf Amorphous Sediment Rare H (None) /hpf Urine Mucus Rare H (None) /hpf 01/16/19 Range/Units 08:50 Hct (34.0-46.0) % MCV (80.0-100.0) fL Chloride (98-107) mmol/L BUN (7-17) mg/dL Glucose (74-99) mg/dL Calcium (8.4-10.2) mg/dL LDL Cholesterol, Calc 115 H (0-99) mg/dL Urine Appearance (Clear) Ur Leukocyte Esterase (Negative) Urine WBC (0-5) /hpf Ur Squamous Epith Cells (0-4) /hpf Amorphous Sediment (None) /hpf Urine Mucus (None) /hpf Assessment and Plan Plan: -Possible peptic ulcer disease disease or gastritis: Management as mentioned above -Hypertriglyceridemia no medications at this time diet counseling -Prediabetes -Rule out a hypertension -depression and anxiety: Management as per primary service
[2019-01-16] MEDS: LORazepam 0.5 MG TAB PO PRN (14:38)
--- NOTE | 2019-01-16 18:21 | P.HP ---
Psychiatric H&P - . H&P Date: 01/16/19 History & Physical: Allergies Allergy/AdvReac Type Severity Reaction Status Date / Time TRAVIST-D AdvReac Unknown Uncoded 01/15/19 21:52 Vital Signs Temp 98.3 F 01/16/19 04:41 Pulse 88 01/16/19 04:41 Resp 14 01/16/19 04:41 BP 114/59 01/16/19 04:41 Pulse Ox 97 01/15/19 21:14 Intake & Output 01/15/19 01/16/19 01/16/19 17:59 06:59 18:59 Weight 76.2 kg Laboratory Last Values WBC 9.0 k/uL (3.8-10.6) 01/15/19 16:30 RBC 4.68 m/uL (3.80-5.40) 01/15/19 16:30 Hgb 15.1 gm/dL (11.4-16.0) 01/15/19 16:30 Hct 47.1 % (34.0-46.0) H 01/15/19 16:30 MCV 100.6 fL (80.0-100.0) H 01/15/19 16:30 MCH 32.3 pg (25.0-35.0) 01/15/19 16:30 MCHC 32.1 g/dL (31.0-37.0) 01/15/19 16:30 RDW 12.5 % (11.5-15.5) 01/15/19 16:30 Plt Count 241 k/uL (150-450) 01/15/19 16:30 Neutrophils % 68 % 01/15/19 16:30 Lymphocytes % 24 % 01/15/19 16:30 Monocytes % 4 % 01/15/19 16:30 Eosinophils % 2 % 01/15/19 16:30 Basophils % 0 % 01/15/19 16:30 Neutrophils # 6.1 k/uL (1.3-7.7) 01/15/19 16:30 Lymphocytes # 2.2 k/uL (1.0-4.8) 01/15/19 16:30 Monocytes # 0.4 k/uL (0-1.0) 01/15/19 16:30 Eosinophils # 0.2 k/uL (0-0.7) 01/15/19 16:30 Basophils # 0.0 k/uL (0-0.2) 01/15/19 16:30 Sodium 144 mmol/L (137-145) 01/15/19 16:30 Potassium 4.1 mmol/L (3.5-5.1) 01/15/19 16:30 Chloride 113 mmol/L (98-107) H 01/15/19 16:30 Carbon Dioxide 24 mmol/L (22-30) 01/15/19 16:30 Anion Gap 7 mmol/L 01/15/19 16:30 BUN 24 mg/dL (7-17) H 01/15/19 16:30 Creatinine 0.87 mg/dL (0.52-1.04) 01/15/19 16:30 Est GFR (CKD-EPI)AfAm 81 (>60 ml/min/1.73 sqM) 01/15/19 16:30 Est GFR (CKD-EPI)NonAf 70 (>60 ml/min/1.73 sqM) 01/15/19 16:30 Glucose 128 mg/dL (74-99) H 01/15/19 16:30 Calcium 11.2 mg/dL (8.4-10.2) H 01/15/19 16:30 Triglycerides 106 mg/dL (<150) 01/16/19 08:50 Cholesterol 192 mg/dL (<200) 01/16/19 08:50 LDL Cholesterol, Calc 115 mg/dL (0-99) H 01/16/19 08:50 HDL Cholesterol 56 mg/dL (40-60) 01/16/19 08:50 TSH 2.830 mIU/L (0.465-4.680) 01/16/19 08:50 Urine Color Yellow 01/15/19 16:30 Urine Appearance Cloudy (Clear) H 01/15/19 16:30 Urine pH 6.5 (5.0-8.0) 01/15/19 16:30 Ur Specific [place] 1.013 (1.001-1.035) 01/15/19 16:30 Urine Protein Negative (Negative) 01/15/19 16:30 Urine Glucose (UA) Negative (Negative) 01/15/19 16:30 Urine Ketones Negative (Negative) 01/15/19 16:30 Urine Blood Negative (Negative) 01/15/19 16:30 Urine Nitrite Negative (Negative) 01/15/19 16:30 Urine Bilirubin Negative (Negative) 01/15/19 16:30 Urine Urobilinogen <2.0 mg/dL (<2.0) 01/15/19 16:30 Ur Leukocyte Esterase Trace (Negative) H 01/15/19 16:30 Urine RBC <1 /hpf (0-5) 01/15/19 16:30 Urine WBC 8 /hpf (0-5) H 01/15/19 16:30 Ur Squamous Epith Cells 11 /hpf (0-4) H 01/15/19 16:30 Amorphous Sediment Rare /hpf (None) H 01/15/19 16:30 Hyaline Casts 1 /lpf (0-2) 01/15/19 16:30 Urine Mucus Rare /hpf (None) H 01/15/19 16:30 Urine Opiates Screen Not Detected (NotDetected) 01/15/19 16:30 Ur Oxycodone Screen Not Detected (NotDetected) 01/15/19 16:30 Urine Methadone Screen Not Detected (NotDetected) 01/15/19 16:30 Ur Propoxyphene Screen Not Detected (NotDetected) 01/15/19 16:30 Ur Barbiturates Screen Not Detected (NotDetected) 01/15/19 16:30 U Tricyclic Antidepress Not Detected (NotDetected) 01/15/19 16:30 Ur Phencyclidine Scrn Not Detected (NotDetected) 01/15/19 16:30 Ur Amphetamines Screen Not Detected (NotDetected) 01/15/19 16:30 U Methamphetamines Scrn Not Detected (NotDetected) 01/15/19 16:30 U Benzodiazepines Scrn Not Detected (NotDetected) 01/15/19 16:30 [place] 0.7 mmol/L 01/16/19 08:50 Urine Cocaine Screen Not Detected (NotDetected) 01/15/19 16:30 U Marijuana (THC) Screen Not Detected (NotDetected) 01/15/19 16:30 Serum Alcohol <10 mg/dL 01/15/19 16:30 01/16/19 18:12 IDENTIFYING DATA: 68-year-old female patient HPI: Patient is admitted to the inpatient psychiatric unit on an involuntary basis. Petition was done by registered nurse verbalizing "not eating, not sleeping, not caring for her ADLs, not allowing family or [facility] to help her." Patient states that she called the ambulance because she was not eating. Says she's just been eating cottage cheese and peaches for 1 month's time. She has lost weight but does not know how much. She does state that she had some mashed potatoes and meatloaf today but she felt full. She is not sleeping well. She does at home she has not been taking her medications as prescribed. She admits to depression every day. She admits to anxiety says she used to get panic attacks. No recent hallucinations. She says she has not been hungry. She verbalizes that her memory is terrible. She says she thinks that she has Alzheimer's. She says she probably hasn't been not taking her medications because she is scared to take anything. She reports she's not been going to her treatment at [facility] and she doesn't know why. PAST PSYCHIATRIC HISTORY: Patient has recently been in treatment with [facility] but has not been going to her appointments it sounds and relays that she doesn't know why. Most recent psychotropic medications appear to be Lithobid 600 M at bedtime Luvox made 100 more grams twice a day Zyprexa 5 mg at bedtime. She doesn't remember being on Luvox, doesn't remember if it helped. She does remember Zyprexa. she does seem to remember lithium. She feels like her medication probably was not working for her. She does not years ago she had shock treatments. She does see a counselor at [facility] and sees Dr. Snyder for her medications. She denies any history of bipolar disorder. She has had psychiatric hospitalization a few times when she was 23 years old. Denies any history of suicide attempts. PMH: "I don't think so." Per chart history she is on Glucophage, potassium chloride, Synthroid, Lasix, calcium vitamin D, Lipitor, atenolol. ALLERGIES: [place] D MEDICATIONS: Tylenol when necessary, Maalox when necessary, Ativan when necessary, milk of magnesia when necessary, Zofran when necessary, Protonix CHEMICAL DEPENDENCY HISTORY: Patient denies FAMILY PSYCHIATRIC HISTORY: Denies FAMILY CHEMICAL DEPENDENCY HISTORY: None known at this time. SOCIAL HISTORY: She currently lives by herself. She says she does not have a guardian. She's been once and . She has 2 children. She does not currently work. She is on SSI. MENTAL STATUS EXAM: She is alert and cooperative with the interview. Her affect overall is restricted. Her mood is described as "fed up." She denies any current thoughts of harm to self or others. She denies any auditory or visual hallucinations. She is not oriented to place. She is oriented to city and month. She is not oriented to date or year stating that it's "09." She is oriented to day of week. She does not show any agitation. Her insight is limited, judgment shows evidence of recent impairment. STRENGTHS/WEAKNESSES: Strengthsis engaged in outpatient treatment program, although not compliant recently; weaknessesmedication and treatment compliance, cognitive impairment INTELLECTUAL FUNCTIONING: Below average IMPRESSIONS: Major depressive disorder, recurrent, severe; unspecified anxiety disorder; rule out major neurocognitive disorder PLAN: Patient will be admitted to the inpatient psychiatric unit [facility] on a involuntary basis. Second clinical cert is done based on the patient's depression and lack of care for self, has also been not following up with outpatient treatment. At this time we'll initiate low dose of Lexapro to help with depression and anxiety we'll monitor her tolerability and consider further titration as needed. We will try to attempt to receive outpatient records from [facility] with medication history. We'll check a lithium level she was recently on lithium multiple seems to have been noncompliant recently. We will look into support systems. Medical consultation will be ordered and Baseline laboratory workup be done the patient. Ativan when necessary as ordered for anxiety. Estimated length of stay is 5-7 days. Prognosis is guarded.
--- NOTE | 2019-01-16 18:29 | P.HP ---
Psychiatric H&P - . H&P Date: 01/16/19 History & Physical: 01/16/19 18:28 Addendum to the H&P. It is noted that patient did have a lithium level drawn which was therapeutic at 0.7. Patient does state that she did continue to take the lithium but was not taking all of her other medications. Patient states that she does not want to be on the lithium. We will initiate Lexapro and continue to monitor for any side effects and monitor patient's response.
[2019-01-16] MEDS: ESCITALOPRAM 5 MG TAB PO SCH (19:47)
[2019-01-16 20:43] LABS: Hemoglobin A1C 6.1 % (4.0-6.0)
[2019-01-17] MEDS: PANTOPRAZOLE 40 MG TABLET PO SCH (08:04)
[2019-01-17] MEDS: ESCITALOPRAM 5 MG TAB PO SCH (10:31)
[2019-01-17] MEDS: LORazepam 0.5 MG TAB PO PRN (11:57)
--- NOTE | 2019-01-17 12:41 | P.PN ---
Subjective Progress Note Date: 01/17/19 Principal diagnosis: Depressive disorder severe with underlying eating disorder Chart reviewed patient discussed in team this morning discussed with nursing staff. Interviewed the patient who was severely depressed 10 out of 10, 10 on 10 anxiety fearful anxious paranoid and stated she had ECT 10 years ago. She stated that was all call her and ruined her memory. She stated that most of the [place] isolated and is doing the same on the unit here. Objective - Vital Signs Vital signs: Vital Signs Temp 98.3 F 01/16/19 04:41 Pulse 88 01/16/19 04:41 Resp 14 01/16/19 04:41 BP 114/59 01/16/19 04:41 Pulse Ox 97 01/15/19 21:14 Intake & Output 01/16/19 01/17/19 01/17/19 18:59 06:59 18:59 Weight 76.2 kg - Labs CBC & Chem 7: 01/15/19 16:30 01/15/19 16:30 Labs: Abnormal Lab Results - Last 24 Hours (Table) 01/16/19 Range/Units 08:50 Hemoglobin A1c 6.1 H (4.0-6.0) % Assessment and Plan Assessment: IDENTIFYING DATA: 68-year-old female patient HPI: Patient is admitted to the inpatient psychiatric unit on an involuntary basis. Petition was done by registered nurse verbalizing "not eating, not sleeping, not caring for her ADLs, not allowing family or [facility] to help her." Patient states that she called the ambulance because she was not eating. Says she's just been eating cottage cheese and peaches for 1 month's time. She has lost weight but does not know how much. She does state that she had some mashed potatoes and meatloaf today but she felt full. She is not sleeping well. She does at home she has not been taking her medications as prescribed. She admits to depression every day. She admits to anxiety says she used to get panic attacks. No recent hallucinations. She says she has not been hungry. She verbalizes that her memory is terrible. She says she thinks that she has Alzheimer's. She says she probably hasn't been not taking her medications because she is scared to take anything. She reports she's not been going to her treatment at [facility] and she doesn't know why. PAST PSYCHIATRIC HISTORY: Patient has recently been in treatment with [facility] but has not been going to her appointments it sounds and relays that she doesn't know why. Most recent psychotropic medications appear to be Lithobid 600 M at bedtime Luvox and 100 mgrams twice a day Zyprexa 5 mg at bedtime. She doesn't remember being on Luvox, doesn't remember if it helped. She does remember Zyprexa. she does seem to remember lithium. She feels like her medication probably was not working for her. She does not years ago she had shock treatments. She does see a counselor at [facility] and sees Dr. Snyder for her medications. She denies any history of bipolar disorder. She has had psychiat [facility] hospitalization a few times when she was 23 years old. Denies any history of suicide attempts. PMH: "I don't think so." Per chart history she is on Glucophage, potassium chloride, Synthroid, Lasix, calcium vitamin D, Lipitor, atenolol. ALLERGIES: Travist D MEDICATIONS: Tylenol when necessary, Maalox when necessary, Ativan when necessary, milk of magnesia when necessary, Zofran when necessary, Protonix CHEMICAL DEPENDENCY HISTORY: Patient denies FAMILY PSYCHIATRIC HISTORY: Denies FAMILY CHEMICAL DEPENDENCY HISTORY: None known at this time. SOCIAL HISTORY: She currently lives by herself. She says she does not have a guardian. She's been once and . She has 2 children. She does not currently work. She is on SSI. MENTAL STATUS EXAM: She is alert and cooperative with the interview. Her affect overall is restricted. Her mood is described as "fed up." She denies any current thoughts of harm to self or others. She denies any auditory or visual hallucinations. She is not oriented to place. She is oriented to city and month. She is not oriented to date or year stating that it's "09." She is oriented to day of week. She does not show any agitation. Her insight is limited, judgment shows evidence of recent impairment. (1) Major depressive disorder, recurrent, severe with psychotic features Current Visit: Yes Status: Acute Code(s): F33.3 - MAJOR DEPRESSV DISORDER, RECURRENT, SEVERE W PSYCH SYMPTOMS SNOMED Code(s): 57202395 Plan: PLAN: Patient will be admitted to the inpatient psychiatric unit [facility] on a involuntary basis. Second clinical cert is done based on the patient's depression and lack of care for self, has also been not following up with outpatient treatment. At this time we'll stop Lexapro to help with depression and anxiety we'll monitor her tolerability and consider further titration as needed. We will try to attempt to receive outpatient records from [facility] with medication history. We'll check a lithium level she was recently on lithium multiple seems to have been noncompliant recently. We will look into support systems. Medical consultation will be ordered and Baseline laboratory workup be done the patient. Ativan when necessary as ordered for anxiety. Will add Zoloft 25 mg at bedtime plus Mirapex 0.5 mg by mouth daily at bedtime for restless leg. She also be placed on Risperdal 0.25 mg twice a day. She has a great done of anxiety and will switch from Ativan to clonazepam Time with Patient: Less than 30
[2019-01-17] MEDS: clonazePAM 1 MG TAB PO SCH ×3 (14:28→21:22)
[2019-01-17] MEDS: MAG HYDROX/AL HYDROX/SIMETH 30 ML CUP PO PRN (14:29)
[2019-01-17] MEDS ORDERED: SERTRALINE 25 MG TAB PO SCH (21:00)
[2019-01-17] MEDS: CLOTRIMAZOLE 1% CREAM 15 GM TUBE TOPICAL SCH (21:22)
[2019-01-17] MEDS: PRAMIPEXOLE 0.5 MG TAB PO SCH (21:22)
[2019-01-17] MEDS: risperiDONE 0.25 MG TAB PO SCH (21:22)
[2019-01-18] MEDS: clonazePAM 1 MG TAB PO SCH ×3 (08:38→20:29)
[2019-01-18] MEDS: PANTOPRAZOLE 40 MG TABLET PO SCH (08:38)
[2019-01-18] MEDS: CLOTRIMAZOLE 1% CREAM 15 GM TUBE TOPICAL SCH ×2 (08:38→20:32)
[2019-01-18] MEDS: risperiDONE 0.25 MG TAB PO SCH ×2 (08:39→20:27)
--- NOTE | 2019-01-18 12:18 | P.PN ---
Subjective Progress Note Date: 01/18/19 Principal diagnosis: Depressive disorder severe with underlying eating disorder Chart reviewed patient discussed in team this morning discussed with nursing staff. Interviewed the patient who was severely depressed 10 out of 10, 10 on 10 anxiety fearful anxious paranoid and stated she had ECT 10 years ago. She stated that was all call her and ruined her memory. She stated that most of the [facility] isolated and is doing the same on the unit here. 01/18/2019: Chart reviewed, patient discussed with nursing staff in detail, discussed in team regarding her depression poor appetite and poor participation and no motivation. She stated the last time she had ECT around her memory and does not want to try that again. She is depressed hopeless helpless overwhelmed night eating poor sleep body aches. Objective - Vital Signs Vital signs: Vital Signs Temp 98.4 F 01/18/19 06:49 Pulse 108 H 01/18/19 08:40 Resp 16 01/18/19 08:40 BP 122/66 01/18/19 08:40 Pulse Ox 97 01/15/19 21:14 - Labs CBC & Chem 7: 01/15/19 16:30 01/15/19 16:30 Assessment and Plan Assessment: IDENTIFYING DATA: 68-year-old female patient HPI: Patient is admitted to the inpatient psychiatric unit on an involuntary basis. Petition was done by registered nurse verbalizing "not eating, not sleeping, not caring for her ADLs, not allowing family or [facility] to help her." Patient states that she called the ambulance because she was not eating. Says she's just been eating cottage cheese and peaches for 1 month's time. She has lost weight but does not know how much. She does state that she had some mashed potatoes and meatloaf today but she felt full. She is not sleeping well. She does at home she has not been taking her medications as prescribed. She admits to depression every day. She admits to anxiety says she used to get panic attacks. No recent hallucinations. She says she has not been hungry. She verbalizes that her memory is terrible. She says she thinks that she has Alzheimer's. She says she probably hasn't been not taking her medications be cause she is scared to take anything. She reports she's not been going to her treatment at [facility] and she doesn't know why. PAST PSYCHIATRIC HISTORY: Patient has recently been in treatment with [facility] but has not been going to her appointments it sounds and relays that she doesn't know why. Most recent psychotropic medications appear to be Lithobid 600 M at bedtime Luvox and 100 mgrams twice a day Zyprexa 5 mg at bedtime. She doesn't remember being on Luvox, doesn't remember if it helped. She does remember Zyprexa. she does seem to remember lithium. She feels like her medication probably was not working for her. She does not years ago she had shock treatments. She does see a counselor at [facility] and sees Dr. Snyder for her medications. She denies any history of bipolar disorder. She has had psychiatric hospitalization a few times when she was 23 years old. Denies any history of suicide attempts. PMH: "I don't think so." Per chart history she is on Glucophage, potassium chloride, Synthroid, Lasix, calcium vitamin D, Lipitor, atenolol. ALLERGIES: Travist D MEDICATIONS: Tylenol when necessary, Maalox when necessary, Ativan when necessary, milk of magnesia when necessary, Zofran when necessary, Protonix CHEMICAL DEPENDENCY HISTORY: Patient denies FAMILY PSYCHIATRIC HISTORY: Denies FAMILY CHEMICAL DEPENDENCY HISTORY: None known at this time. SOCIAL HISTORY: She currently lives by herself. She says she does not have a guardian. She's been once and . She has 2 children. She does not currently work. She is on SSI. MENTAL STATUS EXAM: She is alert and cooperative with the interview. Her affect overall is restricted. Her mood is described as "fed up." She denies any current thoughts of harm to self or others. She denies any auditory or visual hallucinations. She is not oriented to place. She is oriented to city and month. She is not oriented to date or year stating that it's "09." She is oriented to day of week. She does not show any agitation. Her insight is limited, judgment shows evidence of recent impairment. 01/18/2019: This is a 68-year-old female who is cooperative with interview but is lying in breath after eating breakfast at 11:30 in the morning. She remains with little to no appetite, depressed, anxious and has a fear of eating food. She sleeps but states she is not rested. She remains anxious. She would rather at this point. (1) Major depressive disorder, recurrent, severe with psychotic features Current Visit: Yes Status: Acute Code(s): F33.3 - MAJOR DEPRESSV DISORDER, RECURRENT, SEVERE W PSYCH SYMPTOMS SNOMED Code(s): 95949192 Plan: PLAN: Patient will be admitted to the inpatient psychiatric unit [facility] on a involuntary basis. Second clinical cert is done based on the patient's depression and lack of care for self, has also been not following up with outpatient treatment. At this time we'll stop Lexapro to help with depression and anxiety we'll monitor her tolerability and consider further titration as needed. We will try to attempt to receive outpatient records from [facility] with medication history. We'll check a lithium level she was recently on lithium multiple seems to have been noncompliant recently. We will look into support systems. Medical consultation will be ordered and Baseline laboratory workup be done the patient. Ativan when necessary as ordered for anxiety. Will add Zoloft 25 mg at bedtime plus Mirapex 0.5 mg by mouth daily at bedtime for restless leg. She also be placed on Risperdal 0.25 mg twice a day. She has a great done of anxiety and will switch from Ativan to clonazepam 01/18/2019: Discussed with patient increase of Zoloft 50 mg by mouth daily at bedtime for depression and anxiety, continue Klonopin until I can get that he titration of Zoloft at least to 75 mg 100, Risperdal 0.25 mg remains at twice a day, will add Megace 40 mg 4 times a day for appetite increase and will use Provigil for focusing concentration and motivation during the daytime which will aid in her being able to get to sleep better at night. The goal is not have her seat during the day decrease depression and decrease anxiety and participate in [facility] milieu therapeutic environment. Time with Patient: Less than 30
[2019-01-18] MEDS: MEGESTROL 40 MG TAB PO SCH ×3 (13:54→20:29)
[2019-01-18] MEDS: PRAMIPEXOLE 0.5 MG TAB PO SCH (20:27)
[2019-01-18] MEDS ORDERED: SERTRALINE 25 MG TAB PO SCH (21:00)
[2019-01-19] MEDS: clonazePAM 1 MG TAB PO SCH (08:02)
[2019-01-19] MEDS: MODAFINIL 100 MG TAB PO SCH (08:02)
[2019-01-19] MEDS: PANTOPRAZOLE 40 MG TABLET PO SCH (08:02)
[2019-01-19] MEDS: risperiDONE 0.25 MG TAB PO SCH ×2 (08:02→21:28)
[2019-01-19] MEDS: MEGESTROL 40 MG TAB PO SCH ×4 (08:02→21:29)
[2019-01-19] MEDS: CLOTRIMAZOLE 1% CREAM 15 GM TUBE TOPICAL SCH ×2 (08:03→21:42)
--- NOTE | 2019-01-19 12:34 | P.PN ---
Subjective Progress Note Date: 01/19/19 Principal diagnosis: Depressive disorder severe with underlying eating disorder Chart reviewed patient discussed in team this morning discussed with nursing staff. Interviewed the patient who was severely depressed 10 out of 10, 10 on 10 anxiety fearful anxious paranoid and stated she had ECT 10 years ago. She stated that was all call her and ruined her memory. She stated that most of the [facility] isolated and is doing the same on the unit here. 01/18/2019: Chart reviewed, patient discussed with nursing staff in detail, discussed in team regarding her depression poor appetite and poor participation and no motivation. She stated the last time she had ECT around her memory and does not want to try that again. She is depressed hopeless helpless overwhelmed night eating poor sleep body aches. 01/19/2019: Chart reviewed, discussed in detail with nursing staff, discussed in team meeting regarding her depression, poor appetite, poor concentration, and little to no motivation. She again feels hopeless helpless overwhelmed depressed and feels like she has no room in her stomach for food but attempts to eat. She complains of stomach ache. She states she is able to sleep at night. Objective - Vital Signs Vital signs: Vital Signs Temp 97.5 F L 01/19/19 06:30 Pulse 77 01/19/19 06:30 Resp 16 01/19/19 06:30 BP 111/53 01/19/19 06:30 Pulse Ox 97 01/15/19 21:14 - Labs CBC & Chem 7: 01/15/19 16:30 01/15/19 16:30 Assessment and Plan Assessment: IDENTIFYING DATA: 68-year-old female patient HPI: Patient is admitted to the inpatient psychiatric unit on an involuntary basis. Petition was done by registered nurse verbalizing "not eating, not sleeping, not caring for her ADLs, not allowing family or [facility] to help her." Patient states that she called the ambulance because she was not eating. Says she's just been eating cottage cheese and peaches for 1 month's time. She has lost weight but does not know how much. She does state that she had some mashed potatoes and meatloaf today but she felt full. She is not sleeping well. She does at home she has not been taking her medications as prescribed. She admits to depression every day. She admits to anxiety says she used to get panic attacks. No recent hallucinations. She says she has not been hungry. She verbalizes that her memory is terrible. She says she thinks that she has Alzheimer's. She says she probably hasn't been not taking her medications because she is scared to take anything. She reports she's not been going to her treatment at [facility] and she doesn't know why. PAST PSYCHIATRIC HISTORY: Patient has recently been in treatment with [facility] but has not been going to her appointments it sounds and relays that she doesn't know why. Most recent psychotropic medications appear to be Lithobid 600 M at bedtime Luvox and 100 mgrams twice a day Zyprexa 5 mg at bedtime. She doesn't remember being on Luvox, doesn't remember if it helped. She does remember Zyprexa. she does seem to remember lithium. She feels like her medication probably was not working for her. She does not years ago she had shock treatments. She does see a counselor at [facility] and sees Dr. Snyder for her medications. She denies any history of bipolar disorder. She has had psych iatric hospitalization a few times when she was 23 years old. Denies any history of suicide attempts. PMH: "I don't think so." Per chart history she is on Glucophage, potassium chloride, Synthroid, Lasix, calcium vitamin D, Lipitor, atenolol. ALLERGIES: Travist D MEDICATIONS: Tylenol when necessary, Maalox when necessary, Ativan when necessary, milk of magnesia when necessary, Zofran when necessary, Protonix CHEMICAL DEPENDENCY HISTORY: Patient denies FAMILY PSYCHIATRIC HISTORY: Denies FAMILY CHEMICAL DEPENDENCY HISTORY: None known at this time. SOCIAL HISTORY: She currently lives by herself. She says she does not have a guardian. She's been once and . She has 2 children. She does not currently work. She is on SSI. MENTAL STATUS EXAM: She is alert and cooperative with the interview. Her affect overall is restricted. Her mood is described as "fed up." She denies any current thoughts of harm to self or others. She denies any auditory or visual hallucinations. She is not oriented to place. She is oriented to city and month. She is not oriented to date or year stating that it's "09." She is oriented to day of week. She does not show any agitation. Her insight is limited, judgment shows evidence of recent impairment. 01/18/2019: This is a 68-year-old female who is cooperative with interview but is lying in breath after eating breakfast at 11:30 in the morning. She remains with little to no appetite, depressed, anxious and has a fear of eating food. She sleeps but states she is not rested. She remains anxious. She would rather at this point. 01/19/2019: This is 68-year-old female with flat affect and walks slowly to the interview room. She ate a small amount how pancakes this morning and felt full. She remains with flat facies small shuffling gait and severely depressed with almost a fear of eating. She remains less anxious and will decrease her Klonopin today. (1) Major depressive disorder, recurrent, severe with psychotic features Current Visit: Yes Status: Acute Code(s): F33.3 - MAJOR DEPRESSV DISORDER, RECURRENT, SEVERE W PSYCH SYMPTOMS SNOMED Code(s): 47526358 Plan: PLAN: Patient will be admitted to the inpatient psychiatric unit [facility] on a involuntary basis. Second clinical cert is done based on the patient's depression and lack of care for self, has also been not following up with outpatient treatment. At this time we'll stop Lexapro to help with depression and anxiety we'll monitor her tolerability and consider further titration as needed. We will try to attempt to receive outpatient records from [facility] with medication history. We'll check a lithium level she was recently on lithium multiple seems to have been noncompliant recently. We will look into support systems. Medical consultation will be ordered and Baseline laboratory workup be done the patient. Ativan when necessary as ordered for anxiety. Will add Zoloft 25 mg at bedtime plus Mirapex 0.5 mg by mouth daily at bedtime for restless leg. She also be placed on Risperdal 0.25 mg twice a day. She has a great done of anxiety and will switch from Ativan to clonazepam 01/18/2019: Discussed with patient increase of Zoloft 50 mg by mouth daily at bedtime for depression and anxiety, continue Klonopin until I can get that he titration of Zoloft at least to 75 mg 100, Risperdal 0.25 mg remains at twice a day, will add Megace 40 mg 4 times a day for appetite increase and will use Provigil for focusing concentration and motivation during the daytime which will aid in her being able to get to sleep better at night. The goal is not have her seat during the day decrease depression and decrease anxiety and participate in [facility] milieu therapeutic environment. 01/19/2019: Discussed in detail with patient regarding the benefit risk ratio of her following medications including Zoloft and risperidone, Megace, Provigil. Encouraged her to eat at lunchtime today and to engage in hughes milieu activities but states she has difficult time focusing and concentrating. I did encourage her to go anyways to be around other people and see how they handle coping skills except Time with Patient: Greater than 30
[2019-01-19] MEDS: clonazePAM 0.5 MG TAB PO SCH ×2 (15:22→21:29)
[2019-01-19] MEDS ORDERED: VENLAFAXINE HCL ER 37.5 MG CAP PO SCH (21:00)
[2019-01-19] MEDS: PRAMIPEXOLE 0.5 MG TAB PO SCH (21:28)
[2019-01-20] MEDS: risperiDONE 0.25 MG TAB PO SCH ×2 (09:15→20:58)
[2019-01-20] MEDS: clonazePAM 0.5 MG TAB PO SCH ×4 (09:15→20:58)
[2019-01-20] MEDS: PANTOPRAZOLE 40 MG TABLET PO SCH (09:15)
[2019-01-20] MEDS: CLOTRIMAZOLE 1% CREAM 15 GM TUBE TOPICAL SCH ×2 (09:16→21:47)
[2019-01-20] MEDS: MODAFINIL 100 MG TAB PO SCH (09:16)
[2019-01-20] MEDS: MEGESTROL 40 MG TAB PO SCH ×4 (09:16→20:59)
--- NOTE | 2019-01-20 13:00 | P.PN ---
Subjective Progress Note Date: 01/20/19 Principal diagnosis: Depressive disorder severe with underlying eating disorder Chart reviewed patient discussed in team this morning discussed with nursing staff. Interviewed the patient who was severely depressed 10 out of 10, 10 on 10 anxiety fearful anxious paranoid and stated she had ECT 10 years ago. She stated that was all call her and ruined her memory. She stated that most of the [facility] isolated and is doing the same on the unit here. 01/18/2019: Chart reviewed, patient discussed with nursing staff in detail, discussed in team regarding her depression poor appetite and poor participation and no motivation. She stated the last time she had ECT around her memory and does not want to try that again. She is depressed hopeless helpless overwhelmed night eating poor sleep body aches. 01/19/2019: Chart reviewed, discussed in detail with nursing staff, discussed in team meeting regarding her depression, poor appetite, poor concentration, and little to no motivation. She again feels hopeless helpless overwhelmed depressed and feels like she has no room in her stomach for food but attempts to eat. She complains of stomach ache. She states she is able to sleep at night. 01/20/2019: Chart reviewed and discussed with nursing staff regarding feeding sleeping and caring for herself, discussed in team meeting regarding her de pression poor appetite and poor concentration no motivation and remains hopeless helpless and suicidal. She still complains about stomach and not able to eat much. Objective - Vital Signs Vital signs: Vital Signs Temp 98.5 F 01/20/19 06:35 Pulse 99 01/20/19 06:35 Resp 16 01/20/19 06:35 BP 93/45 01/20/19 06:35 Pulse Ox 97 01/15/19 21:14 - Labs CBC & Chem 7: 01/15/19 16:30 01/15/19 16:30 Assessment and Plan Assessment: IDENTIFYING DATA: 68-year-old female patient HPI: Patient is admitted to the inpatient psychiatric unit on an involuntary basis. Petition was done by registered nurse verbalizing "not eating, not sleeping, not caring for her ADLs, not allowing family or [facility] to help her." Patient states that she called the ambulance because she was not eating. Says she's just been eating cottage cheese and peaches for 1 month's time. She has lost weight but does not know how much. She does state that she had some mashed potatoes and meatloaf today but she felt full. She is not sleeping well. She does at home she has not been taking her medications as prescribed. She admits to depression every day. She admits to anxiety says she used to get panic attacks. No recent hallucinations. She says she has not been hungry. She verbalizes that her memory is terrible. She says she thinks that she has Alzheimer's. She says she probably hasn't been not taking her medications because she is scared to take anything. She reports she's not been going to her treatment at [facility] and she doesn't know why. PAST PSYCHIATRIC HISTORY: Patient has recently been in treatment with [facility] but has not been going to her appointments it sounds and relays that she doesn't know why. Most recent psychotropic medications appear to be Lithobid 600 M at bedtime Luvox and 100 mgrams twice a day Zyprexa 5 mg at bedtime. She doesn't remember being on Luvox, doesn't remember if it helped. She does remember Zyprexa. she does seem to remember lithium. She feels like her medication prob ably was not working for her. She does not years ago she had shock treatments. She does see a counselor at [facility] and sees Dr. Snyder for her medications. She denies any history of bipolar disorder. She has had psychiatric hospitalization a few times when she was 23 years old. Denies any history of suicide attempts. PMH: "I don't think so." Per chart history she is on Glucophage, potassium ch loride, Synthroid, Lasix, calcium vitamin D, Lipitor, atenolol. ALLERGIES: Travist D MEDICATIONS: Tylenol when necessary, Maalox when necessary, Ativan when necessary, milk of magnesia when necessary, Zofran when necessary, Protonix CHEMICAL DEPENDENCY HISTORY: Patient denies FAMILY PSYCHIATRIC HISTORY: Denies FAMILY CHEMICAL DEPENDENCY HISTORY: None known at this time. SOCIAL HISTORY: She currently lives by herself. She says she does not have a guardian. She's been once and . She has 2 children. She does not currently work. She is on SSI. MENTAL STATUS EXAM: She is alert and cooperative with the interview. Her affect overall is restricted. Her mood is described as "fed up." She denies any current thoughts of harm to self or others. She denies any auditory or visual hallucinations. She is not oriented to place. She is oriented to city and month. She is not oriented to date or year stating that it's "09." She is oriented to day of week. She does not show any agitation. Her insight is limited, judgment shows evidence of recent impairment. 01/18/2019: This is a 68-year-old female who is cooperative with interview but is lying in breath after eating breakfast at 11:30 in the morning. She remains with little to no appetite, depressed, anxious and has a fear of eating food. She sleeps but states she is not rested. She remains anx ious. She would rather at this point. 01/19/2019: This is 68-year-old female with flat affect and walks slowly to the interview room. She ate a small amount how pancakes this morning and felt full. She remains with flat facies small shuffling gait and severely depressed with almost a fear of eating. She remains less anxious and will decrease her Klonopin today. 01/20/2019: This is a 68-year-old female who still remains with flat affect walks very slowly to the interview room with a very unsteady gait. She continues to eat small amount of food. She remains severely depressed and well adjust her medications accordingly. She remains suicidal in nature. Depression 8 out of 10, anxiety 8 out of 10. (1) Major depressive disorder, recurrent, severe with psychotic features Current Visit: Yes Status: Acute Code(s): F33.3 - MAJOR DEPRESSV DISORDER, RECURRENT, SEVERE W PSYCH SYMPTOMS SNOMED Code(s): 05832661 (2) Major depressive disorder, recurrent, severe with psychotic features Current Visit: Yes Status: Acute Priority: High Code(s): F33.3 - MAJOR DEPRESSV DISORDER, RECURRENT, SEVERE W PSYCH SYMPTOMS SNOMED Code(s): 72336901 Plan: PLAN: Patient will be admitted to the inpatient psychiatric unit [facility] on a involuntary basis. Second clinical cert is done based on the patient's depression and lack of care for self, has also been not following up with outpatient treatment. At this time we'll stop Lexapro to help with de pression and anxiety we'll monitor her tolerability and consider further titration as needed. We will try to attempt to receive outpatient records from [facility] with medication history. We'll check a lithium level she was recently on lithium multiple seems to have been noncompliant recently. We will look into support systems. Medical consultation will be ordered and Baseline laboratory workup be done the patient. Ativan when necessary as ordered for anxiety. Will add Zoloft 25 mg at bedtime plus Mirapex 0.5 mg by mouth daily at bedtime for restless leg. She also be placed on Risperdal 0.25 mg twice a day. She has a great done of anxiety and will switch from Ativan to clonazepam 01/18/2019: Discussed with patient increase of Zoloft 50 mg by mouth daily at bedtime for depression and anxiety, continue Klonopin until I can get that he titration of Zoloft at least to 75 mg 100, Risperdal 0.25 mg remains at twice a day, will add Megace 40 mg 4 times a day for appetite increase and will use Provigil for focusing concentration and motivation during the daytime which will aid in her being able to get to sleep better at night. The goal is not have her seat during the day decrease depression and decrease anxiety and participate in hughes milieu therapeutic environment. 01/19/2019: Discussed in detail with patient regarding the benefit risk ratio of her following medications including Zoloft and risperidone, Megace, Provigil. Encouraged her to eat at lunchtime today and to engage in hughes milieu activities but states she has difficult time focusing and concentrating. I did encourage her to go anyways to be around other people and see how they handle coping skills except 01/20/2019 discussed with patient that changing from Zoloft to Effexor may be a better bet benefit. She'll be increased to 75 mg by mouth daily at bedtime. Continue Risperdal for agitated psychosis. We'll discontinue Provigil to lack of activation and switch to methylphenidate 10 mg after breakfast. She has minimal skills to take care of herself and will order an MRI for his think she has cortical and temporoparietal atrophy. Time with Patient: Less than 30
[2019-01-20] MEDS: VENLAFAXINE HCL ER 75 MG CAP PO SCH (20:58)
[2019-01-20] MEDS: PRAMIPEXOLE 0.5 MG TAB PO SCH (20:58)
[2019-01-21] MEDS: clonazePAM 0.5 MG TAB PO SCH ×3 (09:21→21:35)
[2019-01-21] MEDS: risperiDONE 0.25 MG TAB PO SCH ×2 (09:22→21:36)
[2019-01-21] MEDS: MEGESTROL 40 MG TAB PO SCH ×4 (09:22→21:38)
[2019-01-21] MEDS: CLOTRIMAZOLE 1% CREAM 15 GM TUBE TOPICAL SCH ×2 (09:22→21:40)
[2019-01-21] MEDS: PANTOPRAZOLE 40 MG TABLET PO SCH (09:42)
[2019-01-21] MEDS: METHYLPHENIDATE HCL 10 MG TAB PO SCH (09:51)
--- NOTE | 2019-01-21 13:24 | P.PN ---
Subjective Progress Note Date: 01/21/19 Principal diagnosis: Depressive disorder severe with underlying eating disorder Chart reviewed patient discussed in team this morning discussed with nursing staff. Interviewed the patient who was severely depressed 10 out of 10, 10 on 10 anxiety fearful anxious paranoid and stated she had ECT 10 years ago. She stated that was all call her and ruined her memory. She stated that most of the [facility] isolated and is doing the same on the unit here. 01/18/2019: Chart reviewed, patient discussed with nursing staff in detail, discussed in team regarding her depression poor appetite and poor participation and no motivation. She stated the last time she had ECT around her memory and does not want to try that again. She is depressed hopeless helpless overwhelmed night eating poor sleep body aches. 01/19/2019: Chart reviewed, discussed in detail with nursing staff, discussed in team meeting regarding her depression, poor appetite, poor concentration, and little to no motivation. She again feels hopeless helpless overwhelmed depressed and feels like she has no room in her stomach for food but attempts to eat. She complains of stomach ache. She states she is able to sleep at night. 01/20/2019: Chart reviewed and discussed with nursing staff regarding feeding sleeping and caring for herself, discussed in team meeting regarding her de pression poor appetite and poor concentration no motivation and remains hopeless helpless and suicidal. She still complains about stomach and not able to eat much. 01/21/2019: Chart reviewed and discussed with nursing staff, discussed with social work and recent discussion with daughter. She continues to be depressed poor appetite and poor communication no motivation and suicidal Objective - Vital Signs Vital signs: Vital Signs Temp 98.5 F 01/21/19 06:50 Pulse 95 01/21/19 06:50 Resp 16 01/21/19 06:50 BP 97/55 01/21/19 06:50 Pulse Ox 95 01/21/19 06:50 - Labs CBC & Chem 7: 01/15/19 16:30 01/15/19 16:30 Assessment and Plan Assessment: IDENTIFYING DATA: 68-year-old female patient HPI: Patient is admitted to the inpatient psychiatric unit on an involuntary basis. Petition was done by registered nurse verbalizing "not eating, not sleeping, not caring for her ADLs, not allowing family or [facility] to help her." Patient states that she called the ambulance because she was not eating. Says she's just been eating cottage cheese and peaches for 1 month's time. She has lost weight but does not know how much. She does state that she had some mashed potatoes and meatloaf today but she felt full. She is not sleeping well. She does at home she has not been taking her medications as prescribed. She admits to depression every day. She admits to anxiety says she used to get panic attacks. No recent hallucinations. She says she has not been hungry. She verbalizes that her memory is terrible. She says she thinks that she has Alzheimer's. She says she probably hasn't been not taking her medications because she is scared to take anything. She reports she's not been going to her treatment at [facility] and she doesn't know why. PAST PSYCHIATRIC HISTORY: Patient has recently been in treatment with [facility] but has not been going to her appointments it sounds and relays that she doesn't know why. Most recent psychotropic medications appear to be Lithobid 600 M at bedtime Luvox and 100 mgrams twice a day Zyprexa 5 mg at bedtime. She doesn't remember being on Luvox, doesn't remember if it helped. She does remember Zyprexa. she does seem to remember lithium. She feels like her medication probably was not working for her. She does not years ago she had shock treatments. She does see a counselor at [facility] and sees Dr. Snyder for her medications. She denies any history of bipolar disorder. She has had psychiatric hospitalization a few times when she was 23 years old. Denies any history of suicide attempts. PMH: "I don't think so." Per chart history she is on Glucophage, potassium chloride, Synthroid, Lasix, calcium vitamin D, Lipitor, atenolol. ALLERGIES: Travist D MEDICATIONS: Tylenol when necessary, Maalox when necessary, Ativan when necessary, milk of magnesia when necessary, Zofran when necessary, Protonix CHEMICAL DEPENDENCY HISTORY: Patient denies FAMILY PSYCHIATRIC HISTORY: Denies FAMILY CHEMICAL DEPENDENCY HISTORY: None known at this time. SOCIAL HISTORY: She currently lives by herself. She says she does not have a guardian. She's been once and . She has 2 children. She does not currently work. She is on SSI. MENTAL STATUS EXAM: She is alert and cooperative with the interview. Her affect overall is restricted. Her mood is described as "fed up." She denies any current thoughts of harm to self or others. She denies any auditory or visual hallucinations. She is not oriented to place. She is oriented to city and month. She is not oriented to date or year stating that it's "09." She is oriented to day of week. She does not show any agitation. Her insight is limited, judgment shows evidence of recent impairment. 01/18/2019: This is a 68-year-old female who is cooperative with interview but is lying in breath after eating breakfast at 11:30 in the morning. She remains with little to no appetite, depressed, anxious and has a fear of eating food. She sleeps but states she is not rested. She remains anxious. She would rather at this point. 01/19/2019: This is 68-year-old female with flat affect and walks slowly to the interview room. She ate a small amount how pancakes this morning and felt full. She remains with flat facies small shuffling gait and severely d epressed with almost a fear of eating. She remains less anxious and will decrease her Klonopin today. 01/20/2019: This is a 68-year-old female who still remains with flat affect walks very slowly to the interview room with a very unsteady gait. She continues to eat small amount of food. She remains severely depressed and well adjust her medications accordingly. She remains suicidal in nature. Depression 8 out of 10, anxiety 8 out of 10. 01/21/2019: This is a 68-year-old female who was lying in bed is still remains with a flat affect and has been isolative into her room. She remains depressed and suicidal. She remains anxious requiring frequent medication (1) Major depressive disorder, recurrent, severe with psychotic features Current Visit: Yes Status: Acute Code(s): F33.3 - MAJOR DEPRESSV DISORDER, RECURRENT, SEVERE W PSYCH SYMPTOMS SNOMED Code(s): 49289980 (2) Major depressive disorder, recurrent, severe with psychotic features Current Visit: Yes Status: Acute Priority: High Code(s): F33.3 - MAJOR DEPRESSV DISORDER, RECURRENT, SEVERE W PSYCH SYMPTOMS SNOMED Code(s): 97819838 Plan: PLAN: Patient will be admitted to the inpatient psychiatric unit [facility] on a involuntary basis. Second clinical cert is done based on the patient's depression and lack of care for self, has also been not following up with outpatient treatment. At this time we'll stop Lexapro to help with depression and anxiety we'll monitor her tolerability and consider further titration as needed. We will try to attempt to receive outpatient records from [facility] with medication history. We'll check a lithium level she was recently on lithium multiple seems to have been noncompliant recently. We will look into support systems. Medical consultation will be ordered and Baseline laboratory workup be done the patient. Ativan when necessary as ordered for anxiety. Will add Zoloft 25 mg at bedtime plus Mirapex 0.5 mg by mouth daily at bedtime for restless leg. She also be placed on Risperdal 0.25 mg twice a day. She has a great done of anxiety and will switch from Ativan to clonazepam 01/18/2019: Discussed with patient increase of Zoloft 50 mg by mouth daily at bedtime for depression and anxiety, continue Klonopin until I can get that he titration of Zoloft at least to 75 mg 100, Risperdal 0.25 mg remains at twice a day, will add Megace 40 mg 4 times a day for appetite increase and will use Provigil for focusing concentration and motivation during the daytime which will aid in her being able to get to sleep better at night. The goal is not have her seat during the day decrease depression and decrease anxiety and participate in [facility] milieu therapeutic environment. 01/19/2019: Discussed in detail with patient regarding the benefit risk ratio of her following medications including Zoloft and risperidone, Megace, Provigil. Encouraged her to eat at lunchtime today and to engage in hughes milieu activities but states she has difficult time focusing and concentrating. I did encourage her to go anyways to be around other people and see how they handle coping skills except 01/20/2019 discussed with patient that changing from Zoloft to Effexor may be a better bet benefit. She'll be increased to 75 mg by mouth daily at bedtime. Continue Risperdal for agitated psychosis. We'll discontinue Provigil to lack of activation and switch to methylphenidate 10 mg after breakfast. She has minimal skills to take care of herself and will order an MRI for his think she has cortical and temporoparietal atrophy. 01/21/2019: Patient unwilling to sign for MRI and will assume that she has dementia. Will add 5 mg Aricept to bedtime and maintain all other medications as written. She will be followed on 15 minute checks usual protocol for the unit. Supportive care Time with Patient: Less than 30
[2019-01-21] MEDS: ONDANSETRON ODT 4 MG TAB PO PRN (21:05)
[2019-01-21] MEDS: VENLAFAXINE HCL ER 75 MG CAP PO SCH (21:36)
[2019-01-21] MEDS: PRAMIPEXOLE 0.5 MG TAB PO SCH (21:36)
[2019-01-21] MEDS: DONEPEZIL 5 MG TAB PO SCH (21:37)
[2019-01-22] MEDS: METHYLPHENIDATE HCL 10 MG TAB PO SCH (09:34)
[2019-01-22] MEDS: risperiDONE 0.25 MG TAB PO SCH ×2 (09:34→20:43)
[2019-01-22] MEDS: clonazePAM 0.5 MG TAB PO SCH ×3 (09:34→20:42)
[2019-01-22] MEDS: MEGESTROL 40 MG TAB PO SCH ×4 (09:34→20:43)
[2019-01-22] MEDS: PANTOPRAZOLE 40 MG TABLET PO SCH (09:36)
[2019-01-22] MEDS: CLOTRIMAZOLE 1% CREAM 15 GM TUBE TOPICAL SCH ×2 (09:50→22:08)
--- NOTE | 2019-01-22 12:14 | P.PN ---
Subjective Progress Note Date: 01/22/19 Principal diagnosis: Depressive disorder severe with underlying eating disorder Chart reviewed patient discussed in team this morning discussed with nursing staff. Interviewed the patient who was severely depressed 10 out of 10, 10 on 10 anxiety fearful anxious paranoid and stated she had ECT 10 years ago. She stated that was all call her and ruined her memory. She stated that most of the [facility] isolated and is doing the same on the unit here. 01/18/2019: Chart reviewed, patient discussed with nursing staff in detail, discussed in team regarding her depression poor appetite and poor participation and no motivation. She stated the last time she had ECT around her memory and does not want to try that again. She is depressed hopeless helpless overwhelmed night eating poor sleep body aches. 01/19/2019: Chart reviewed, discussed in detail with nursing staff, discussed in team meeting regarding her depression, poor appetite, poor concentration, and little to no motivation. She again feels hopeless helpless overwhelmed depressed and feels like she has no room in her stomach for food but attempts to eat. She complains of stomach ache. She states she is able to sleep at night. 01/20/2019: Chart reviewed and discussed with nursing staff regarding feeding sleeping and caring for herself, discussed in team meeting regarding her de pression poor appetite and poor concentration no motivation and remains hopeless helpless and suicidal. She still complains about stomach and not able to eat much. 01/21/2019: Chart reviewed and discussed with nursing staff, discussed with social work and recent discussion with daughter. She continues to be depressed poor appetite and poor communication no motivation and suicidal 01/22/2019: chart reviewed and discussed with nursing staff. She makes poor eye contact and poor communication expressing depression and anxiety Objective - Vital Signs Vital signs: Vital Signs Temp 98 F 01/22/19 06:40 Pulse 95 01/22/19 06:40 Resp 16 01/22/19 06:40 BP 116/58 01/22/19 06:40 Pulse Ox 95 01/21/19 06:50 Intake & Output 01/21/19 01/22/19 01/22/19 18:59 06:59 18:59 Weight 76.2 kg - Labs CBC & Chem 7: 01/15/19 16:30 01/15/19 16:30 Assessment and Plan Assessment: IDENTIFYING DATA: 68-year-old female patient HPI: Patient is admitted to the inpatient psychiatric unit on an involuntary basis. Petition was done by registered nurse verbalizing "not eating, not sleeping, not caring for her ADLs, not allowing family or [facility] to help her." Patient states that she called the ambulance because she was not eating. Says she's just been eating cottage cheese and peaches for 1 month's time. She has lost weight but does not know how much. She does state that she had some mashed potatoes and meatloaf today but she felt full. She is not sleeping well. She does at home she has not been taking her medications as prescribed. She admits to depression every day. She admits to anxiety says she used to get panic attacks. No recent hallucinations. She says she has not been hungry. She verbalizes that her memory is terrible. She says she thinks that she has Alzheimer's. She says she probably hasn't been not taking her medications because she is scared to take anything. She reports she's not been going to her treatment at [facility] and she doesn't know why. PAST PSYCHIATRIC HISTORY: Patient has recently been in treatment with [facility] but has not been going to her appointments it sounds and relays that she doesn't know why. Most recent psychotropic medications appear to be Lithobid 600 M at bedtime Luvox and 100 mgrams twice a day Zyprexa 5 mg at bedtime. She doesn't remember being on Luvox, doesn't remember if it helped. She does remember Zyprexa. she does seem to remember lithium. She feels like her medication probably was not working for her. She does not years ago she had shock treatments. She does see a counselor at [facility] and [facility] She denies any history of bipolar disorder. She has had psychiatric hospitalization a few times when she was 23 years old. Denies any history of suicide attempts. PMH: "I don't think so." Per chart history she is on Glucophage, potassium chloride, Synthroid, Lasix, calcium vitamin D, Lipitor, atenolol. ALLERGIES: Travist D MEDICATIONS: Tylenol when necessary, Maalox when necessary, Ativan when necessary, milk of magnesia when necessary, Zofran when necessary, Protonix CHEMICAL DEPENDENCY HISTORY: Patient denies FAMILY PSYCHIATRIC HISTORY: Denies FAMILY CHEMICAL DEPENDENCY HISTORY: None known at this time. SOCIAL HISTORY: She currently lives by herself. She says she does not have a guardian. She's been once and . She has 2 children. She does not currently work. She is on SSI. MENTAL STATUS EXAM: She is alert and cooperative with the interview. Her affect overall is restricted. Her mood is described as "fed up." She denies any current thoughts of harm to self or others. She denies any auditory or visual hallucinations. She is not oriented to place. She is oriented to city and month. She is not oriented to date or year stating that it's "09." She is oriented to day of week. She does not show any agitation. Her insight is limited, judgment shows evidence of recent impairment. 01/18/2019: This is a 68-year-old female who is cooperative with interview but is lying in breath after eating breakfast at 11:30 in the [facility]. She remains with little to no appetite, depressed, anxious and has a fear of eating food. She sleeps but states she is not rested. She remains anxious. She would rather at this point. 01/19/2019: This is 68-year-old female with flat affect and walks slowly to the interview room. She ate a small amount how pancakes this morning and felt full. She remains with flat facies small shuffling gait and severely depressed with almost a fear of eating. She remains less anxious and will decrease her Klonopin today. 01/20/2019: This is a 68-year-old female who still remains with flat affect walks very slowly to the interview room with a very unsteady gait. She continues to eat small amount of food. She remains severely depressed and well adjust her medications accordingly. She remains suicidal in nature. Depression 8 out of 10, anxiety 8 out of 10. 01/21/2019: This is a 68-year-old female who was lying in bed is still remains with a flat affect and has been isolative into her room. She remains depressed and suicidal. She remains anxious requiring frequent medication (1) Major depressive disorder, recurrent, severe with psychotic features Current Visit: Yes Status: Acute Code(s): F33.3 - MAJOR DEPRESSV DISORDER, RECURRENT, SEVERE W PSYCH SYMPTOMS SNOMED Code(s): 49053982 (2) Major depressive disorder, recurrent, severe with psychotic features Current Visit: Yes Status: Acute Priority: High Code(s): F33.3 - MAJOR DEPRESSV DISORDER, RECURRENT, SEVERE W PSYCH SYMPTOMS SNOMED Code(s): 96290166 Plan: PLAN: Patient will be admitted to the inpatient psychiatric unit [facility] on a involuntary basis. Second clinical cert is done based on the patient's depression and lack of care for self, has also been not following up with outpatient treatment. At this time we'll stop Lexapro to help with depression and anxiety we'll monitor her tolerability and consider further titration as needed. We will try to attempt to receive outpatient records from [facility] with medication history. We'll check a lithium level she was recently on lithium multiple seems to have been noncompliant recently. We will look into [facility]. Medical consultation will be ordered and Baseline laboratory workup be done the patient. Ativan when necessary as ordered for anxiety. Will add Zoloft 25 mg at bedtime plus Mirapex 0.5 mg by mouth daily at bedtime for restless leg. She also be placed on Risperdal 0.25 mg twice a day. She has a great done of anxiety and will switch from Ativan to clonazepam 01/18/2019: Discussed with patient increase of Zoloft 50 mg by mouth daily at bedtime for depression and anxiety, continue Klonopin until I can get that he titration of Zoloft at least to 75 mg 100, Risperdal 0.25 mg remains at twice a day, will add Megace 40 mg 4 times a day for appetite increase and will use Provigil for focusing concentration and motivation during the daytime which will aid in her being able to get to sleep better at night. The goal is not have her seat during the day decrease depression and decrease anxiety and participate in [facility] milieu therapeutic environment. 01/19/2019: Discussed in detail with patient regarding the benefit risk ratio of her following medications including Zoloft and risperidone, Megace, Provigil. Encouraged her to eat at lunchtime today and to engage in hug[facility] milieu activities but states she has difficult time focusing and concentrating. I did encourage her to go anyways to be around other people and see how they handle coping skills except 01/20/2019 discussed with patient that changing from Zoloft to Effexor may be a better bet benefit. She'll be increased to 75 mg by mouth daily at bedtime. Continue Risperdal for agitated psychosis. We'll discontinue Provigil to lack of activation and switch to methylphenidate 10 mg after breakfast. She has minimal skills to take care of herself and will order an MRI for his think she has cortical and temporoparietal atrophy. 01/21/2019: Patient unwilling to sign for MRI and will assume that she has dementia. Will add 5 mg Aricept to bedtime and maintain all other medications as written. She will be followed on 15 minute checks usual protocol for the unit. Supportive care 01/22/2019: patient is still not motivated and non responding to current medications. 15 minute checks. Increase ritalin to 20 mg po qam and add namenda 5 mg po qhs. Time with Patient: Less than 30
[2019-01-22] MEDS: PRAMIPEXOLE 0.5 MG TAB PO SCH (20:42)
[2019-01-22] MEDS: MEMANTINE 5 MG TAB PO SCH (20:43)
[2019-01-22] MEDS: VENLAFAXINE HCL ER 150 MG CAP PO SCH (20:43)
[2019-01-22] MEDS: DONEPEZIL 5 MG TAB PO SCH (20:43)
[2019-01-23] MEDS: MEGESTROL 40 MG TAB PO SCH ×4 (09:33→20:24)
[2019-01-23] MEDS: risperiDONE 0.25 MG TAB PO SCH ×2 (09:33→20:24)
[2019-01-23] MEDS: PANTOPRAZOLE 40 MG TABLET PO SCH (09:33)
[2019-01-23] MEDS: clonazePAM 0.5 MG TAB PO SCH ×3 (09:34→20:24)
[2019-01-23] MEDS: METHYLPHENIDATE HCL 10 MG TAB PO SCH (09:34)
[2019-01-23] MEDS: CLOTRIMAZOLE 1% CREAM 15 GM TUBE TOPICAL SCH ×2 (09:36→22:04)
--- NOTE | 2019-01-23 10:29 | P.PN ---
Subjective Progress Note Date: 01/23/19 Principal diagnosis: Depressive disorder severe with underlying eating disorder Chart reviewed patient discussed in team this morning discussed with nursing staff. Interviewed the patient who was severely depressed 10 out of 10, 10 on 10 anxiety fearful anxious paranoid and stated she had ECT 10 years ago. She stated that was all call her and ruined her memory. She stated that most of the [facility] isolated and is doing the same on the unit here. 01/18/2019: Chart reviewed, patient discussed with nursing staff in detail, discussed in team regarding her depression poor appetite and poor participation and no motivation. She stated the last time she had ECT around her memory and does not want to try that again. She is depressed hopeless helpless overwhelmed night eating poor sleep body aches. 01/19/2019: Chart reviewed, discussed in detail with nursing staff, discussed in team meeting regarding her depression, poor appetite, poor concentration, and little to no motivation. She again feels hopeless helpless overwhelmed depressed and feels like she has no room in her stomach for food but attempts to eat. She complains of stomach ache. She states she is able to sleep at night. 01/20/2019: Chart reviewed and discussed with nursing staff regarding feeding sleeping and caring for herself, discussed in team meeting regarding her de pression poor appetite and poor concentration no motivation and remains hopeless helpless and suicidal. She still complains about stomach and not able to eat much. 01/21/2019: Chart reviewed and discussed with nursing staff, discussed with social work and recent discussion with daughter. She continues to be depressed poor appetite and poor communication no motivation and suicidal 01/22/2019: chart reviewed and discussed with nursing staff. She makes poor eye contact and poor communication expressing depression and anxiety 01/23/2019: Chart reviewed and discussed with nursing staff as well as walk patient out of my office. She is awake talks softly has no major complaints except her feet are dry she still remains depressed anxious hopeless and overwhelmed. She is did eat some breakfast this morning. Objective - Vital Signs Vital signs: Vital Signs Temp 98.8 F 01/23/19 06:30 Pulse 102 H 01/23/19 06:30 Resp 16 01/23/19 06:30 BP 120/61 01/23/19 06:30 Pulse Ox 95 01/21/19 06:50 Intake & Output 01/22/19 01/23/1901/23/19 18:59 06:59 18:59 Weight 76.66 kg - Labs CBC & Chem 7: 01/15/19 16:30 01/15/19 16:30 Assessment and Plan Assessment: IDENTIFYING DATA: 68-year-old female patient HPI: Patient is admitted to the inpatient psychiatric unit on an involuntary basis. Petition was done by registered nurse verbalizing "not eating, not sleeping, not caring for her ADLs, not allowing family or [facility] to help her." Patient states that she called the ambulance because she was not eating. Says she's just been eating cottage cheese and peaches for 1 month's time. She has lost weight but does not know how much. She does state that she had some mashed potatoes and meatloaf today but she felt full. She is not sleeping well. She does at home she has not been taking her medications as prescribed. She admits to depression every day. She admits to anxiety says she used to get panic attacks. No recent hallucinations. She says she has not been hungry. She verbalizes that her memory is terrible. She says she thinks that she has Alzheimer's. She says she probably hasn't been not taking her medications because she is scared to take anything. She reports she's not been going to her treatment at [facility] and she doesn't know why. PAST PSYCHIATRIC HISTORY: Patient has recently been in treatment with [facility] but has not been going to her appointments it sounds and relays that she doesn't know why. Most recent psychotropic medications appear to be Lithobid 600 M at bedtime Luvox and 100 mgrams twice a day Zyprexa 5 mg at bedtime. She doesn't remember being on Luvox, doesn't remember if it helped. She does remember Zyprexa. she does seem to remember lithium. She feels like her medication probably was not working for her. She does not years ago she had shock treatments. She does see a counselor at [facility] and sees Dr. Snyder for her medications. She denies any history of bipolar disorder. She has had psychiatric hospitalization a few times when she was 23 years old. Denies any history of suicide attempts. PMH: "I don't think so." Per chart history she is on Glucophage, potassium chloride, Synthroid, Lasix, calcium vitamin D, Lipitor, atenolol. ALLERGIES: Travist D MEDICATIONS: Tylenol when necessary, Maalox when necessary, Ativan when necessary, milk of magnesia when necessary, Zofran when necessary, Protonix CHEMICAL DEPENDENCY HISTORY: Patient denies FAMILY PSYCHIATRIC HISTORY: Denies FAMILY CHEMICAL DEPENDENCY HISTORY: None known at this time. SOCIAL HISTORY: She currently lives by herself. She says she does not have a guardian. She's been once and . She has 2 children. She does not currently work. She is on SSI. MENTAL STATUS EXAM: She is alert and cooperative with the interview. Her affect overall is restricted. Her mood is described as "fed up." She denies any current thoughts of harm to self or others. She denies any auditory or visual hallucinations. She is not oriented to place. She is oriented to city and month. She is not oriented to date or year stating that it's "09." She is oriented to day of week. She does not show any agitation. Her insight is limited, judgment shows evidence of recent impairment. 01/18/2019: This is a 68-year-old female who is cooperative with interview but is lying in breath after eating breakfast at 11:30 in the morning. She remains with little to no appetite, depressed, anxious and has a fear of eating food. She sleeps but states she is not rested. She remains anxious. She would rather at this point. 01/19/2019: This is 68-year-old female with flat affect and walks slowly to the interview room. She ate a small amount how pancakes this morning and felt full. She remains with flat facies small shuffling gait and severely depressed with almost a fear of eating. She remains less anxious and will de crease her Klonopin today. 01/20/2019: This is a 68-year-old female who still remains with flat affect walks very slowly to the interview room with a very unsteady gait. She continues to eat small amount of food. She remains severely depressed and well adjust her medications accordingly. She remains suicidal in nature. Depression 8 out of 10, anxiety 8 out of 10. 01/21/2019: This is a 68-year-old female who was lying in bed is still remains with a flat affect and has been isolative into her room. She remains depressed and suicidal. She remains anxious requiring frequent medication (1) Major depressive disorder, recurrent, severe with psychotic features Current Visit: Yes Status: Acute Code(s): F33.3 - MAJOR DEPRESSV DISORDER, RECURRENT, SEVERE W PSYCH SYMPTOMS SNOMED Code(s): 16909119 (2) Major depressive disorder, recurrent, severe with psychotic features Current Visit: Yes Status: Acute Priority: High Code(s): F33.3 - MAJOR DEPRESSV DISORDER, RECURRENT, SEVERE W PSYCH SYMPTOMS SNOMED Code(s): 08946308 Plan: PLAN: Patient will be admitted to the inpatient psychiatric unit [facility] on a involuntary basis. Second clinical cert is done based on the patient's depression and lack of care for self, has also been not following up with outpatient treatment. At this time we'll stop Lexapro to help with depression and anxiety we'll monitor her tolerability and consider further titration as needed. We will try to attempt to receive outpatient records from [facility] with medication history. We'll check a lithium level she was recently on lithium multiple seems to have been noncompliant recently. We will look into support systems. Medical consultation will be ordered and Baseline laboratory workup be done the patient. Ativan when necessary as ordered for anxiety. Will add Zoloft 25 mg at bedtime plus Mirapex 0.5 mg by mouth daily at bedtime for restless leg. She also be placed on Risperdal 0.25 mg twice a day. She has a great done of anxiety and will switch from Ativan to clonazepam 01/18/2019: Discussed with patient increase of Zoloft 50 mg by mouth daily at bedtime for depression and anxiety, continue Klonopin until I can get that he titration of Zoloft at least to 75 mg 100, Risperdal 0.25 mg remains at twice a day, will add Megace 40 mg 4 times a day for appetite increase and will use Provigil for focusing concentration and motivation during the daytime which will aid in her being able to get to sleep better at night. The goal is not have her seat during the day decrease depression and decrease anxiety and participate in hughes milieu therapeutic environment. 01/19/2019: Discussed in detail with patient regarding the benefit risk ratio of her following medications including Zoloft and risperidone, Megace, Provigil. Encouraged her to eat at lunchtime today and to engage in hughes milieu activities but states she has difficult time focusing and concentrating. I did encourage her to go anyways to be around other people and see how they handle coping skills except 01/20/2019 discussed with patient that changing from Zoloft to Effexor may be a better bet benefit. She'll be increased to 75 mg by mouth daily at bedtime. Continue Risperdal for agitated psychosis. We'll discontinue Provigil to lack of activation and switch to methylphenidate 10 mg after breakfast. She has minimal skills to take care of herself and will order an MRI for his think she has cortical and temporoparietal atrophy. 01/21/2019: Patient unwilling to sign for MRI and will assume that she has dementia. Will add 5 mg Aricept to bedtime and maintain all other medications as written. She will be followed on 15 minute checks usual protocol for the unit. Supportive care 01/22/2019: patient is still not motivated and non responding to current medications. 15 minute checks. Increase ritalin to 20 mg po qam and add namenda 5 mg po qhs. 01/23/2019: This 68-year-old female has little motivation and appears to start responding to current regimen of medications. 15 minute checks for the maintained. She did have the addition of Namenda last night and increase of Ritalin today. We'll follow and observe today for any medication adjustments needed. Time with Patient: Less than 30
[2019-01-23] MEDS: DONEPEZIL 5 MG TAB PO SCH (20:24)
[2019-01-23] MEDS: MEMANTINE 5 MG TAB PO SCH (20:24)
[2019-01-23] MEDS: VENLAFAXINE HCL ER 150 MG CAP PO SCH (20:24)
[2019-01-23] MEDS: PRAMIPEXOLE 0.5 MG TAB PO SCH (20:25)
[2019-01-23] MEDS: ONDANSETRON ODT 4 MG TAB PO PRN (21:01)
[2019-01-24] MEDS: PANTOPRAZOLE 40 MG TABLET PO SCH (08:09)
[2019-01-24] MEDS: CLOTRIMAZOLE 1% CREAM 15 GM TUBE TOPICAL SCH ×2 (08:09→21:11)
[2019-01-24] MEDS: METHYLPHENIDATE HCL 10 MG TAB PO SCH ×2 (08:09→16:53)
[2019-01-24] MEDS: MEGESTROL 40 MG TAB PO SCH ×4 (08:09→21:12)
[2019-01-24] MEDS: clonazePAM 0.5 MG TAB PO SCH ×3 (08:09→21:12)
[2019-01-24] MEDS: risperiDONE 0.25 MG TAB PO SCH ×2 (08:09→21:12)
--- NOTE | 2019-01-24 14:00 | P.PN ---
Subjective Progress Note Date: 01/24/19 Principal diagnosis: Depressive disorder severe with underlying eating disorder Chart reviewed patient discussed in team this morning discussed with nursing staff. Interviewed the patient who was severely depressed 10 out of 10, 10 on 10 anxiety fearful anxious paranoid and stated she had ECT 10 years ago. She stated that was all call her and ruined her memory. She stated that most of the [facility] isolated and is doing the same on the unit here. 01/18/2019: Chart reviewed, patient discussed with nursing staff in detail, discussed in team regarding her depression poor appetite and poor participation and no motivation. She stated the last time she had ECT around her memory and does not want to try that again. She is depressed hopeless helpless overwhelmed night eating poor sleep body aches. 01/19/2019: Chart reviewed, discussed in detail with nursing staff, discussed in team meeting regarding her depression, poor appetite, poor concentration, and little to no motivation. She again feels hopeless helpless overwhelmed depressed and feels like she has no room in her stomach for food but attempts to eat. She complains of stomach ache. She states she is able to sleep at night. 01/20/2019: Chart reviewed and discussed with nursing staff regarding feeding sleeping and caring for herself, discussed in team meeting regarding her de pression poor appetite and poor concentration no motivation and remains hopeless helpless and suicidal. She still complains about stomach and not able to eat much. 01/21/2019: Chart reviewed and discussed with nursing staff, discussed with social work and recent discussion with daughter. She continues to be depressed poor appetite and poor communication no motivation and suicidal 01/22/2019: chart reviewed and discussed with nursing staff. She makes poor eye contact and poor communication expressing depression and anxiety 01/23/2019: Chart reviewed and discussed with nursing staff as well as walk patient out of my office. She is awake talks softly has no major complaints except her feet are dry she still remains depressed anxious hopeless and overwhelmed. She is did eat some breakfast this morning. 01/24/2019: Chart reviewed, discussed with nursing staff, discussed with social media sr strategy manager who states that the insurance company would like he got to talk to discuss why she is not improving and discussed in detail with the patient today who was able to respond in a meaningful way. She was able to tell me she dropped out of high school in ninth grade and help raise her brothers and sisters from her mother who is apart sleep and had many men in her life. She is been and has 2 children herself. She's had mental illness most of her life she states. She has been able to eat and able to communicate better since increasing her medications. She is not highly motivated to get out of bed since she feels shy around other people. Objective - Vital Signs Vital signs: Vital Signs Temp 98.7 F 01/24/19 06:48 Pulse 101 H 01/24/19 06:48 Resp 18 01/24/19 06:48 BP 120/66 01/24/19 06:48 Pulse Ox 95 01/21/19 06:50 Intake & Output 01/23/19 01/24/19 01/24/19 18:59 06:59 18:59 Weight 76.66 kg - Labs CBC & Chem 7: 01/15/19 16:30 01/15/19 16:30 Assessment and Plan Assessment: IDENTIFYING DATA: 68-year-old female patient HPI: Patient is admitted to the inpatient psychiatric unit on an involuntary basis. Petition was done by registered nurse verbalizing "not eating, not sleeping, not caring for her ADLs, not allowing family or [facility] to help her." Patient states that she called the ambulance because she was not eating. Says she's just been eating cottage cheese and peaches for 1 month's time. She has lost weight but does not know how much. She does state that she had some mashed potatoes and meatloaf today but she felt full. She is not sleeping well. She does at home she has not been taking her medications as prescribed. She admits to depression every day. She admits to anxiety says she used to get panic attacks. No recent hallucinations. She says she has not been hungry. She verbalizes that her memory is terrible. She says she thinks that she has Alzheimer's. She says she probably hasn't been not taking her medications because she is scared to take anything. She reports she's not been going to her treatment at [facility] and she doesn't know why. PAST PSYCHIATRIC HISTORY: Patient has recently been in treatment with [facility] but has not been going to her appointments it sounds and relays that she doesn't know why. Most recent psychotropic medications appear to be Lithobid 600 M at bedtime Luvox and 100 mgrams twice a day Zyprexa 5 mg at bedtime. She doesn't remember being on Luvox, doesn't remember if it helped. She does remember Zyprexa. she does seem to remember lithium. She feels like her medication probably was not working for her. She does not years ago she had shock treatments. She does see a counselor at [facility] and sees Dr. Snyder for her medications. She denies any history of bipolar disorder. She has had psyc hiatric hospitalization a few times when she was 23 years old. Denies any history of suicide attempts. PMH: "I don't think so." Per chart history she is on Glucophage, potassium chloride, Synthroid, Lasix, calcium vitamin D, Lipitor, atenolol. ALLERGIES: Travist D MEDICATIONS: Tylenol when necessary, Maalox when necessary, Ativan when necessary, milk of magnesia when necessary, Zofran when necessary, Protonix CHEMICAL DEPENDENCY HISTORY: Patient denies FAMILY PSYCHIATRIC HISTORY: Denies FAMILY CHEMICAL DEPENDENCY HISTORY: None known at this time. SOCIAL HISTORY: She currently lives by herself. She says she does not have a guardian. She's been once and . She has 2 children. She does not currently work. She is on SSI. MENTAL STATUS EXAM: She is alert and cooperative with the interview. Her affect overall is restricted. Her mood is described as "fed up." She denies any current thoughts of harm to self or others. She denies any auditory or visual hallucinations. She is not oriented to place. She is oriented to city and month. She is not oriented to date or year stating that it's "09." She is oriented to day of week. She does not show any agitation. Her insight is limited, judgment shows evidence of recent impairment. 01/18/2019: This is a 68-year-old female who is cooperative with interview but is lying in breath after eating breakfast at 11:30 in the morning. She remains with little to no appetite, depressed, anxious and has a fear of eating food. She sleeps but states she is not rested. She remains anxious. She would rather at this point. 01/19/2019: This is 68-year-old female with flat affect and walks slowly to the interview room. She ate a small amount how pancakes this morning and felt full. She remains with flat facies small shuffling gait and severely depressed with almost a fear of eating. She remains less anxious and will decrease her Klonopin today. 01/20/2019: This is a 68-year-old female who still remains with flat affect walks very slowly to the interview room with a very unsteady gait. She continues to eat small amount of food. She remains severely depre ssed and well adjust her medications accordingly. She remains suicidal in nature. Depression 8 out of 10, anxiety 8 out of 10. 01/21/2019: This is a 68-year-old female who was lying in bed is still remains with a flat affect and has been isolative into her room. She remains depressed and suicidal. She remains anxious requiring frequent medication 01/24/2019: This 68-year-old female was able to communicate today for the first time and has a reactive affect. She has less anxiety and less depression today (1) Major depressive disorder, recurrent, severe with psychotic features Current Visit: Yes Status: Acute Code(s): F33.3 - MAJOR DEPRESSV DISORDER, RECURRENT, SEVERE W PSYCH SYMPTOMS SNOMED Code(s): 02023620 (2) Major depressive disorder, recurrent, severe with psychotic features Current Visit: Yes Status: Acute Priority: High Code(s): F33.3 - MAJOR DEPRESSV DISORDER, RECURRENT, SEVERE W PSYCH SYMPTOMS SNOMED Code(s): 86891356 Plan: PLAN: Patient will be admitted to the inpatient psychiatric unit [facility] on a involuntary basis. Second clinical cert is done based on the patient's depression and lack of care for self, has also been not following up with outpatient treatment. At this time we'll stop Lexapro to help with depression and anxiety we'll monitor her tolerability and consider further titration as needed. We will try to attempt to receive outpatient records from [facility] with medication history. We'll check a lithium level she was recently on lithium multiple seems to have been noncompliant recently. We will look into support systems. Medical consultation will be ordered and Baseline laboratory workup be done the patient. Ativan when necessary as ordered for anxiety. Will add Zoloft 25 mg at bedtime plus Mirapex 0.5 mg by mouth daily at bedtime for restless leg. She also be placed on Risperdal 0.25 mg twice a day. She has a great done of anxiety and will switch from Ativan to clonazepam 01/18/2019: Discussed with patient increase of Zoloft 50 mg by mouth daily at bedtime for depression and anxiety, continue Klonopin until I can get that he titration of Zoloft at least to 75 mg 100, Risperdal 0.25 mg remains at twice a day, will add Megace 40 mg 4 times a day for appetite increase and will use Provigil for focusing concentration and motivation during the daytime which will aid in her being able to get to sleep better at night. The goal is not have her seat during the day decrease depression and decrease anxiety and participate in hughes milieu therapeutic environment. 01/19/2019: Discussed in detail with patient regarding the benefit risk ratio of her following medications including Zoloft and risperidone, Megace, Provigil. Encouraged her to eat at lunchtime today and to engage in hughes milieu activities but states she has difficult time focusing and concentrating. I did encourage her to go anyways to be around other people and see how they handle coping skills except 01/20/2019 discussed with patient that changing from Zoloft to Effexor may be a better bet benefit. She'll be increased to 75 mg by mouth daily at bedtime. Continue Risperdal for agitated psychosis. We'll discontinue Provigil to lack of activation and switch to methylphenidate 10 mg after breakfast. She has minimal skills to take care of herself and will order an MRI for his think she has cortical and temporoparietal atrophy. 01/21/2019: Patient unwilling to sign for MRI and will assume that she has dementia. Will add 5 mg Aricept to bedtime and maintain all other medications as written. She will be followed on 15 minute checks usual protocol for the unit. Supportive care 01/22/2019: patient is still not motivated and non responding to current medications. 15 minute checks. Increase ritalin to 20 mg po qam and add namenda 5 mg po qhs. 01/23/2019: This 68-year-old female has little motivation and appears to start responding to current regimen of medications. 15 minute checks for the maintained. She did have the addition of Namenda last night and increase of Ritalin today. We'll follow and observe today for any medication adjustments needed. 01/24/2019: This is 68-year-old female has little motivation appears to start responded current regimen of medications. Will increase Ritalin to twice a day 20 mg and continue Aricept and Namenda along with Effexor.
[2019-01-24] MEDS: DONEPEZIL 5 MG TAB PO SCH (21:11)
[2019-01-24] MEDS: MEMANTINE 5 MG TAB PO SCH (21:12)
[2019-01-24] MEDS: PRAMIPEXOLE 0.5 MG TAB PO SCH (21:12)
[2019-01-24] MEDS: VENLAFAXINE HCL ER 150 MG CAP PO SCH (21:29)
[2019-01-25] MEDS: MEGESTROL 40 MG TAB PO SCH ×4 (07:55→20:19)
[2019-01-25] MEDS: risperiDONE 0.25 MG TAB PO SCH ×2 (07:55→20:19)
[2019-01-25] MEDS: PANTOPRAZOLE 40 MG TABLET PO SCH (07:55)
[2019-01-25] MEDS: clonazePAM 0.5 MG TAB PO SCH ×3 (07:57→20:19)
[2019-01-25] MEDS: METHYLPHENIDATE HCL 10 MG TAB PO SCH ×2 (07:58→17:52)
[2019-01-25] MEDS: CLOTRIMAZOLE 1% CREAM 15 GM TUBE TOPICAL SCH ×2 (09:36→20:17)
--- NOTE | 2019-01-25 12:48 | P.PN ---
Subjective Progress Note Date: 01/25/19 Principal diagnosis: Depressive disorder severe with underlying eating disorder Chart reviewed patient discussed in team this morning discussed with nursing staff. Interviewed the patient who was severely depressed 10 out of 10, 10 on 10 anxiety fearful anxious paranoid and stated she had ECT 10 years ago. She stated that was all call her and ruined her memory. She stated that most of the [facility] isolated and is doing the same on the unit here. 01/18/2019: Chart reviewed, patient discussed with nursing staff in detail, discussed in team regarding her depression poor appetite and poor participation and no motivation. She stated the last time she had ECT around her memory and does not want to try that again. She is depressed hopeless helpless overwhelmed night eating poor sleep body aches. 01/19/2019: Chart reviewed, discussed in detail with nursing staff, discussed in team meeting regarding her depression, poor appetite, poor concentration, and little to no motivation. She again feels hopeless helpless overwhelmed depressed and feels like she has no room in her stomach for food but attempts to eat. She complains of stomach ache. She states she is able to sleep at night. 01/20/2019: Chart reviewed and discussed with nursing staff regarding feeding sleeping and caring for herself, discussed in team meeting regarding her de pression poor appetite and poor concentration no motivation and remains hopeless helpless and suicidal. She still complains about stomach and not able to eat much. 01/21/2019: Chart reviewed and discussed with nursing staff, discussed with social work and recent discussion with daughter. She continues to be depressed poor appetite and poor communication no motivation and suicidal 01/22/2019: chart reviewed and discussed with nursing staff. She makes poor eye contact and poor communication expressing depression and anxiety 01/23/2019: Chart reviewed and discussed with nursing staff as well as walk patient out of my office. She is awake talks softly has no major complaints except her feet are dry she still remains depressed anxious hopeless and overwhelmed. She is did eat some breakfast this morning. 01/24/2019: Chart reviewed, discussed with nursing staff, discussed with health social work professor who states that the insurance company would like he got to talk to discuss why she is not improving and discussed in detail with the patient today who was able to respond in a meaningful way. She was able to tell me she dropped out of high school in ninth grade and help raise her brothers and sisters from her mother who is apart sleep and had many men in her life. She is been and has 2 children herself. She's had mental illness most of her life she states. She has been able to eat and able to communicate better since increasing her medications. She is not highly motivated to get out of bed since she feels shy around other people. 01/25/2019 chart reviewed and discussed with insurance medical reception specialist regarding her care and discussed with team today regarding the need to keep this woman up and out of bed so she is sleeps at nighttime not during the daytime. She denies homicidal ideation still remains with mild suicidal ideation but appears to be getting better. She has multiple subsequent somatic complaints including her stomach ache and feeling tired and fatigued. Objective - Vital Signs Vital signs: Vital Signs Temp 98.8 F 01/25/19 06:39 Pulse 92 01/25/19 06:39 Resp 18 01/25/19 06:39 BP 102/55 01/25/19 06:39 Pulse Ox 95 01/21/19 06:50 Intake & Output 01/24/19 01/25/19 01/25/19 18:59 06:59 18:59 Weight 76.66 kg - Labs CBC & Chem 7: 01/15/19 16:30 01/15/19 16:30 Assessment and Plan Assessment: IDENTIFYING DATA: 68-year-old female patient HPI: Patient is admitted to the inpatient psychiatric unit on an involuntary basis. Petition was done by registered nurse verbalizing "not eating, not sleeping, not caring for her ADLs, not allowing family or [facility] to help her." Patient states that she called the ambulance because she was not eating. Says she's just been eating cottage cheese and peaches for 1 month's time. She has lost weight but does not know how much. She does state that she had some mashed potatoes and meatloaf today but she felt full. She is not sleeping well. She does at home she has not been taking her medications as prescribed. She admits to depression every day. She admits to anxiety says she used to get panic attacks. No recent hallucinations. She says she has not been hungry. She verbalizes that her memory is terrible. She says she thinks that she has Alzheimer's. She says she probably hasn't been not taking her medications because she is scared to take anything. She reports she's not been going to her treatment at [facility] and she doesn't know why. PAST PSYCHIATRIC HISTORY: Patient has recently been in treatment with [facility] but has not been going to her appointments it sounds and relays that she doesn't know why. Most recent psychotropic medications appear to be Lithobid 600 M at bedtime Luvox and 100 mgrams twice a day Zyprexa 5 mg at bedtime. She doesn't remember being on Luvox, doesn't remember if it helped. She does remember Zyprexa. she does seem to remember lithium. She feels like her medication probably was not working for her. She does not years ago she had shock traci tments. She does see a counselor at [facility] and sees Dr. Snyder for her medications. She denies any history of bipolar disorder. She has had psychiatric hospitalization a few times when she was 23 years old. Denies any history of suicide attempts. PMH: "I don't think so." Per chart history she is on Glucophage, potassium chloride, Synthroid, Lasix, calcium vitamin D, Lipitor, atenolol. ALLERGIES: Travist D MEDICATIONS: Tylenol when necessary, Maalox when necessary, Ativan when necessary, milk of magnesia when necessary, Zofran when necessary, Protonix CHEMICAL DEPENDENCY HISTORY: Patient denies FAMILY PSYCHIATRIC HISTORY: Denies FAMILY CHEMICAL DEPENDENCY HISTORY: None known at this time. SOCIAL HISTORY: She currently lives by herself. She says she does not have a guardian. She's been once and . She has 2 children. She does not currently work. She is on [employer]. MENTAL STATUS EXAM: She is alert and cooperative with the interview. Her affect overall is restricted. Her mood is described as "fed up." She denies any current thoughts of harm to self or others. She denies any auditory or visual hallucinations. She is not oriented to place. She is oriented to city and month. She is not oriented to date or year stating that it's "09." She is oriented to day of week. She does not show any agitation. Her insight is limited, judgment shows evidence of recent impairment. 01/18/2019: This is a 68-year-old female who is cooperative with interview but is lying in breath after eating breakfast at 11:30 in the morning. She remains with little to no appetite, depressed, anxious and has a fear of eating food. She sleeps but states she is not rested. She remains anxious. She would rather at this point. 01/19/2019: This is 68-year-old female with flat affect and walks slowly to the interview room. She ate a small amount how pancakes this morning and felt full. She remains with flat facies small shuffling gait and severely depressed with almost a fear of eating. She remains less anxious and will decrease her Klonopin today. 01/20/2019: This is a 68-year-old female who still remains with flat affect walks very slowly to the interview room with a very unsteady gait. She continues to eat small amount of food. She remains severely depressed and well adjust her medications accordingly. She remains suicidal in nature. Depression 8 out of 10, anxiety 8 out of 10. 01/21/2019: This is a 68-year-old female who was lying in bed is still remains with a flat affect and has been isolative into her room. She remains depressed and suicidal. She remains anxious requiring frequent medication 01/24/2019: This 68-year-old female was able to communicate today for the first time and has a reactive affect. She has less anxiety and less depression today 01/25/2019; this is 68-year-old female was able to communicate today and stated she has a stomachache and that she does not sleep at night. She states that she is less depressed today than yesterday using a scale of 10 she is 2 out of 10 and has no anxiety. (1) Major depressive disorder, recurrent, severe with psychotic features Current Visit: Yes Status: Acute Code(s): F33.3 - MAJOR DEPRESSV DISORDER, R ECURRENT, SEVERE W PSYCH SYMPTOMS SNOMED Code(s): 43919002 (2) Major depressive disorder, recurrent, severe with psychotic features Current Visit: Yes Status: Acute Priority: High Code(s): F33.3 - MAJOR DEPRESSV DISORDER, RECURRENT, SEVERE W PSYCH SYMPTOMS SNOMED Code(s): 85499377 Plan: PLAN: Patient will be admitted to the inpatient psychiatric unit [facility] on a involuntary basis. Second clinical cert is done based on the patient's depression and lack of care for self, has also been not following up with outpatient treatment. At this time we'll stop Lexapro to help with d epression and anxiety we'll monitor her tolerability and consider further titration as needed. We will try to attempt to receive outpatient records from [facility] with medication history. We'll check a lithium level she was recently on lithium multiple seems to have been noncompliant recently. We will look into support systems. Medical consultation will be ordered and Baseline laboratory workup be done the patient. Ativan when necessary as ordered for anxiety. Will add Zoloft 25 mg at bedtime plus Mirapex 0.5 mg by mouth daily at bedtime for restless leg. She also be placed on Risperdal 0.25 mg twice a day. She has a great done of anxiety and will switch from Ativan to clonazepam 01/18/2019: Discussed with patient increase of Zoloft 50 mg by mouth daily at bedtime for depression and anxiety, continue Klonopin until I can get that he titration of Zoloft at least to 75 mg 100, Risperdal 0.25 mg remains at twice a day, will add Megace 40 mg 4 times a day for appetite increase and will use Provigil for focusing concentration and motivation during the daytime which will aid in her being able to get to sleep better at night. The goal is not have her seat during the day decrease depression and decrease anxiety and participate in hughes milieu therapeutic environment. 01/19/2019: Discussed in detail with patient regarding the benefit risk ratio of her following medications including Zoloft and risperidone, Megace, Provigil. Encouraged her to eat at lunchtime today and to engage in hughes milieu activities but states she has difficult time focusing and concentrating. I did encourage her to go anyways to be around other people and see how they handle coping skills except 01/20/2019 discussed with patient that changing from Zoloft to Effexor may be a better bet benefit. She'll be increased to 75 mg by mouth daily at bedtime. Continue Risperdal for agitated psychosis. We'll discontinue Provigil to lack of activation and switch to methylphenidate 10 mg after breakfast. She has minimal skills to take care of herself and will order an MRI for his think she has cortical and temporoparietal atrophy. 01/21/2019: Patient unwilling to sign for MRI and will assume that she has dementia. Will add 5 mg Aricept to bedtime and maintain all other medications as written. She will be followed on 15 minute checks usual protocol for the unit. Supportive care 01/22/2019: patient is still not motivated and non responding to current medications. 15 minute checks. Increase ritalin to 20 mg po qam and add namenda 5 mg po qhs. 01/23/2019: This 68-year-old female has little motivation and appears to start responding to current regimen of medications. 15 minute checks for the maintained. She did have the addition of Namenda last night and increase of Ritalin today. We'll follow and observe today for any medication adjustments needed. 01/24/2019: This is 68-year-old female has little motivation appears to start responded current regimen of medications. Will increase Ritalin to twice a day 20 mg and continue Aricept and Namenda along with Effexor. 01/25/2019: This 68-year-old female has little motivation appears to be childlike in nature. We'll increase her Effexor to 225 mg XR and encourage her to get out of bed and participate. I will try to engage the nursing staff to assist in getting up but due to hughes milieu may be difficult at the present time. Time with Patient: Greater than 30
[2019-01-25] MEDS: MAG HYDROX/AL HYDROX/SIMETH 30 ML CUP PO PRN (15:08)
[2019-01-25] MEDS: MEMANTINE 5 MG TAB PO SCH (20:18)
[2019-01-25] MEDS: DONEPEZIL 5 MG TAB PO SCH (20:18)
[2019-01-25] MEDS: PRAMIPEXOLE 0.5 MG TAB PO SCH (20:19)
[2019-01-26] MEDS: clonazePAM 0.5 MG TAB PO SCH ×3 (08:16→20:44)
[2019-01-26] MEDS: VENLAFAXINE HCL ER 75 MG CAP PO SCH (08:16)
[2019-01-26] MEDS: risperiDONE 0.25 MG TAB PO SCH ×2 (08:16→20:44)
[2019-01-26] MEDS: MEGESTROL 40 MG TAB PO SCH ×4 (08:16→20:45)
[2019-01-26] MEDS: PANTOPRAZOLE 40 MG TABLET PO SCH (08:16)
[2019-01-26] MEDS: METHYLPHENIDATE HCL 10 MG TAB PO SCH ×2 (08:19→16:46)
[2019-01-26] MEDS: CLOTRIMAZOLE 1% CREAM 15 GM TUBE TOPICAL SCH ×2 (08:19→20:45)
[2019-01-26] MEDS: MAG HYDROX/AL HYDROX/SIMETH 30 ML CUP PO PRN ×3 (09:01→19:27)
--- NOTE | 2019-01-26 13:50 | P.PN ---
Subjective Progress Note Date: 01/26/19 Principal diagnosis: Depressive disorder severe with underlying eating disorder Chart reviewed patient discussed in team this morning discussed with nursing staff. Interviewed the patient who was severely depressed 10 out of 10, 10 on 10 anxiety fearful anxious paranoid and stated she had ECT 10 years ago. She stated that was all call her and ruined her memory. She stated that most of the [place] isolated and is doing the same on the unit here. 01/18/2019: Chart reviewed, patient discussed with nursing staff in detail, discussed in team regarding her depression poor appetite and poor participation and no motivation. She stated the last time she had ECT around her memory and does not want to try that again. She is depressed hopeless helpless overwhelmed night eating poor sleep body aches. 01/19/2019: Chart reviewed, discussed in detail with nursing staff, discussed in team meeting regarding her depression, poor appetite, poor concentration, and little to no motivation. She again feels hopeless helpless overwhelmed depressed and feels like she has no room in her stomach for food but attempts to eat. She complains of stomach ache. She states she is able to sleep at night. 01/20/2019: Chart reviewed and discussed with nursing staff regarding feeding sleeping and caring for herself, discussed in team meeting regarding her de pression poor appetite and poor concentration no motivation and remains hopeless helpless and suicidal. She still complains about stomach and not able to eat much. 01/21/2019: Chart reviewed and discussed with nursing staff, discussed with social work and recent discussion with daughter. She continues to be depressed poor appetite and poor communication no motivation and suicidal 01/22/2019: chart reviewed and discussed with nursing staff. She makes poor eye contact and poor communication expressing depression and anxiety 01/23/2019: Chart reviewed and discussed with nursing staff as well as walk patient out of my office. She is awake talks softly has no major complaints except her feet are dry she still remains depressed anxious hopeless and overwhelmed. She is did eat some breakfast this morning. 01/24/2019: Chart reviewed, discussed with nursing staff, discussed with school social worker who states that the insurance company would like he got to talk to discuss why she is not improving and discussed in detail with the patient today who was able to respond in a meaningful way. She was able to tell me she dropped out of high school in ninth grade and help raise her brothers and sisters from her mother who is apart sleep and had many men in her life. She is been and has 2 children herself. She's had mental illness most of her life she states. She has been able to eat and able to communicate better since increasing her medications. She is not highly motivated to get out of bed since she feels shy around other people. 01/25/2019 chart reviewed and discussed with insurance medical records technician regarding her care and discussed with team today regarding the need to keep this woman up and out of bed so she is sleeps at nighttime not during the daytime. She denies homicidal ideation still remains with mild suicidal ideation but appears to be getting better. She has multiple subsequent somatic complaints including her stomach ache and feeling tired and fatigued. 01/26/2019: Chart reviewed and discussed with team regarding what the medical records technician had told me which is obviously different I talked to him social workers of the head that recall the insurance company. She is not suicidal today nor homicidal. She is able to get out of bed and eat but has multiple somatic complaints. She denies any depression or anxiety with the current medication regime and should be continued. She denies any auditory or visual hallucinations. Objective - Vital Signs Vital signs: Vital Signs Temp 98.5 F 01/26/19 06:52 Pulse 93 01/26/19 06:52 Resp 14 01/26/19 06:52 BP 119/62 01/26/19 06:52 Pulse Ox 95 01/21/19 06:50 Intake & Output 01/25/19 01/26/19 01/26/19 18:59 06:59 18:59 Weight 76.66 kg - Labs CBC & Chem 7: 01/15/19 16:30 01/15/19 16:30 Assessment and Plan Assessment: IDENTIFYING DATA: 68-year-old female patient HPI: Patient is admitted to the inpatient psychiatric unit on an involuntary basis. Petition was done by registered nurse verbalizing "not eating, not sleeping, not caring for her ADLs, not allowing family or H to help her." Patient states that she called the ambulance because she was not eating. Says she's just been eating cottage cheese and peaches for 1 month's time. She has lost weight but does not know how much. She does state that she had some mashed potatoes and meatloaf today but she felt full. She is not sleeping well. She does at home she has not been taking her medications as prescribed. She admits to depression every day. She admits to anxiety says she used to get panic attacks. No recent hallucinations. She says she has not been hungry. She verbalizes that her memory is terrible. She says she thinks that she has Alzheimer's. She says she probably hasn't been not taking her medications because she is scared to take anything. She reports she's not been going to her treatment at [facility] and she doesn't know why. PAST PSYCHIATRIC HISTORY: Patient has recently been in treatment with [facility] but has not been going to her appointments it sounds and relays that she doesn't know why. Most recent psychotropic medications appear to be Lithobid 600 M at bedtime Luvox and 100 mgrams twice a day Zyprexa 5 mg at bedtime. She doesn't remember being on Luvox, doesn't remember if it helped. She does remember Zyprexa. she does seem to remember lithium. She feels like her medication pr obably was not working for her. She does not years ago she had shock treatments. She does see a counselor at [facility] and sees Dr. Snyder for her medications. She denies any history of bipolar disorder. She has had psychiatric hospitalization a few times when she was 23 years old. Denies any history of suicide attempts. PMH: "I don't think so." Per chart history she is on Glucophage, potassium chloride, Synthroid, Lasix, calcium vitamin D, Lipitor, atenolol. ALLERGIES: Travist D MEDICATIONS: Tylenol when necessary, Maalox when necessary, Ativan when necessary, milk of magnesia when necessary, Zofran when necessary, Protonix CHEMICAL DEPENDENCY HISTORY: Patient denies FAMILY PSYCHIATRIC HISTORY: Denies FAMILY CHEMICAL DEPENDENCY HISTORY: None known at this time. SOCIAL HISTORY: She currently lives by herself. She says she does not have a guardian. She's been once and . She has 2 children. She does not currently work. She is on [employer]. MENTAL STATUS EXAM: She is alert and cooperative with the interview. Her affect overall is restricted. Her mood is described as "fed up." She denies any current thoughts of harm to self or others. She denies any auditory or visual hallucinations. She is not oriented to place. She is oriented to city and month. She is not oriented to date or year stating that it's "09." She is oriented to day of week. She does not show any agitation. Her insight is limited, judgment shows evidence of recent impairment. 01/18/2019: This is a 68-year-old female who is cooperative with interview but is lying in breath after eating breakfast at 11:30 in the morning. She remains with little to no appetite, depressed, anxious and has a fear of eating food. She sleeps but states she is not rested. She remains a nxious. She would rather at this point. 01/19/2019: This is 68-year-old female with flat affect and walks slowly to the interview room. She ate a small amount how pancakes this morning and felt full. She remains with flat facies small shuffling gait and severely depressed with almost a fear of eating. She remains less anxious and will decrease her Klonopin today. 01/20/2019: This is a 68-year-old female who still remains with flat affect walks very slowly to the interview room with a very unsteady gait. She continues to eat small amount of food. She remains severely depressed and well adjust her medications accordingly. She remains suicidal in nature. Depression 8 out of 10, anxiety 8 out of 10. 01/21/2019: This is a 68-year-old female who was lying in bed is still remains with a flat affect and has been isolative into her room. She remains depressed and suicidal. She remains anxious requiring frequent medication 01/24/2019: This 68-year-old female was able to communicate today for the first time and has a reactive affect. She has less anxiety and less depression today 01/25/2019; this is 68-year-old female was able to communicate today and stated she has a stomachache and that she does not sleep at night. She states that she is less depressed today than yesterday using a scale of 10 she is 2 out of 10 and has no anxiety. 01/26/2019: This is 68-year-old female was able to communicate better today and said she had a stomachache as usual. I asked her to get up and move and she was able to get dressed and was ambulating on the unit. She still remains a little confused and will continue her Aricept and Namenda as well as her Effexor and methylphenidate. She is at the point where she be transitioned to an [facility] home like [facility] to get more stable before she goes back to home. (1) Major depressive disorder, recurrent, severe with psychotic features Current Visit: Yes Status: Acute Code(s): F33.3 - MAJOR DEPRESSV DISORDER, RECURRENT, SEVERE W PSYCH SYMPTOMS SNOMED Code(s): 95676420 (2) Major depressive disorder, recurrent, severe with psychotic features Current Visit: Yes Status: Acute Priority: High Code(s): F33.3 - MAJOR DEPRESSV DISORDER, RECURRENT, SEVERE W PSYCH SYMPTOMS SNOMED Code(s): 30115369 Plan: PLAN: Patient will be admitted to the inpatient psychiatric unit [facility] on a involuntary basis. Second clinical cert is done based on the pat ient's depression and lack of care for self, has also been not following up with outpatient treatment. At this time we'll stop Lexapro to help with depression and anxiety we'll monitor her tolerability and consider further titration as needed. We will try to attempt to receive outpatient records from [facility] with medication history. We'll check a lithium level she was recently on lithium multiple seems to have been noncompliant recently. We will look into support systems. Medical consultation will be ordered and Baseline laboratory workup be done the patient. Ativan when necessary as ordered for anxiety. Will add Zoloft 25 mg at bedtime plus Mirapex 0.5 mg by mouth daily at bedtime for re stless leg. She also be placed on Risperdal 0.25 mg twice a day. She has a great done of anxiety and will switch from Ativan to clonazepam 01/18/2019: Discussed with patient increase of Zoloft 50 mg by mouth daily at bedtime for depression and anxiety, continue Klonopin until I can get that he ti tration of Zoloft at least to 75 mg 100, Risperdal 0.25 mg remains at twice a day, will add Megace 40 mg 4 times a day for appetite increase and will use Provigil for focusing concentration and motivation during the daytime which will aid in her being able to get to sleep better at night. The goal is not have her seat during the day decrease depression and decrease anxiety and participate in hughes milieu therapeutic environment. 01/19/2019: Discussed in detail with patient regarding the benefit risk ratio of her following medications including Zoloft and risperidone, Megace, Provigil. Encouraged her to eat at lunchtime today and to engage in hughes milieu activities but states she has difficult time focusing and concentrating. I did encourage her to go anyways to be around other people and see how they handle coping skills except 01/20/2019 discussed with patient that changing from Zoloft to Effexor may be a better bet benefit. She'll be increased to 75 mg by mouth daily at bedtime. Continue Risperdal for agitated psychosis. We'll discontinue Provigil to lack of activation and switch to methylphenidate 10 mg after breakfast. She has minimal skills to take care of herself and will order an MRI for his think she has cortical and temporoparietal atrophy. 01/21/2019: Patient unwilling to sign for MRI and will assume that she has dementia. Will add 5 mg Aricept to bedtime and maintain all other medications as written. She will be followed on 15 minute checks usual protocol for the unit. Supportive care 01/22/2019: patient is still not motivated and non responding to current medications. 15 minute checks. Increase ritalin to 20 mg po qam and add namenda 5 mg po qhs. 01/23/2019: This 68-year-old female has little motivation and appears to start responding to current regimen of medications. 15 minute checks for the maintained. She did have the addition of Namenda last night and increase of Ritalin today. We'll follow and observe today for any medication adjustments needed. 01/24/2019: This is 68-year-old female has little motivation appears to start responded current regimen of medications. Will increase Ritalin to twice a day 20 mg and continue Aricept and Namenda along with Effexor. 01/25/2019: This 68-year-old female has little motivation appears to be childlike in nature. We'll increase her Effexor to 225 mg XR and encourage her to get out of bed and participate. I will try to engage the nursing staff to assist in getting up but due to hughes milieu may be difficult at the present time. 01/26/2019. As discussed above the 68-year-old female has more motivation today and still appears to be childlike in nature. Her medications remain as outlined in the chart. Effexor for mood, Aricept and Namenda for early neurocognitive disorder mild, Risperdal 0.25 mg twice a day for mild psychosis, Megace 80 mg 4 times a day for appetite. Anticipate discharge within the next couple days to get house. Time with Patient: Less than 30
[2019-01-26] MEDS: DONEPEZIL 5 MG TAB PO SCH (20:44)
[2019-01-26] MEDS: MEMANTINE 5 MG TAB PO SCH (20:44)
[2019-01-26] MEDS: PRAMIPEXOLE 0.5 MG TAB PO SCH (20:44)
[2019-01-27] MEDS: risperiDONE 0.25 MG TAB PO SCH ×2 (08:13→20:56)
[2019-01-27] MEDS: clonazePAM 0.5 MG TAB PO SCH ×3 (08:13→20:57)
[2019-01-27] MEDS: VENLAFAXINE HCL ER 75 MG CAP PO SCH (08:13)
[2019-01-27] MEDS: MEGESTROL 40 MG TAB PO SCH ×4 (08:13→20:57)
[2019-01-27] MEDS: METHYLPHENIDATE HCL 10 MG TAB PO SCH ×2 (08:13→16:54)
[2019-01-27] MEDS: CLOTRIMAZOLE 1% CREAM 15 GM TUBE TOPICAL SCH ×2 (08:14→21:00)
[2019-01-27] MEDS: PANTOPRAZOLE 40 MG TABLET PO SCH (08:14)
--- NOTE | 2019-01-27 11:39 | P.PN ---
Subjective Progress Note Date: 01/27/19 Principal diagnosis: Depressive disorder severe with underlying eating disorder Chart reviewed patient discussed in team this morning discussed with nursing staff. Interviewed the patient who was severely depressed 10 out of 10, 10 on 10 anxiety fearful anxious paranoid and stated she had ECT 10 years ago. She stated that was all call her and ruined her memory. She stated that most of the [facility] isolated and is doing the same on the unit here. 01/18/2019: Chart reviewed, patient discussed with nursing staff in detail, discussed in team regarding her depression poor appetite and poor participation and no motivation. She stated the last time she had ECT around her memory and does not want to try that again. She is depressed hopeless helpless overwhelmed night eating poor sleep body aches. 01/19/2019: Chart reviewed, discussed in detail with nursing staff, discussed in team meeting regarding her depression, poor appetite, poor concentration, and little to no motivation. She again feels hopeless helpless overwhelmed depressed and feels like she has no room in her stomach for food but attempts to eat. She complains of stomach ache. She states she is able to sleep at night. 01/20/2019: Chart reviewed and discussed with nursing staff regarding feeding sleeping and caring for herself, discussed in team meeting regarding her de pression poor appetite and poor concentration no motivation and remains hopeless helpless and suicidal. She still complains about stomach and not able to eat much. 01/21/2019: Chart reviewed and discussed with nursing staff, discussed with social work and recent discussion with daughter. She continues to be depressed poor appetite and poor communication no motivation and suicidal 01/22/2019: chart reviewed and discussed with nursing staff. She makes poor eye contact and poor communication expressing depression and anxiety 01/23/2019: Chart reviewed and discussed with nursing staff as well as walk patient out of my office. She is awake talks softly has no major complaints except her feet are dry she still remains depressed anxious hopeless and overwhelmed. She is did eat some breakfast this morning. 01/24/2019: Chart reviewed, discussed with nursing staff, discussed with social media executive who states that the insurance company would like he got to talk to discuss why she is not improving and discussed in detail with the patient today who was able to respond in a meaningful way. She was able to tell me she dropped out of high school in ninth grade and help raise her brothers and sisters from her mother who is apart sleep and had many men in her life. She is been and has 2 children herself. She's had mental illness most of her life she states. She has been able to eat and able to communicate better since increasing her medications. She is not highly motivated to get out of bed since she feels shy around other people. 01/25/2019 chart reviewed and discussed with insurance medical technologist chemistry regarding her care and discussed with team today regarding the need to keep this woman up and out of bed so she is sleeps at nighttime not during the daytime. She denies homicidal ideation still remains with mild suicidal ideation but appears to be getting better. She has multiple subsequent somatic complaints including her stomach ache and feeling tired and fatigued. 01/26/2019: Chart reviewed and discussed with team regarding what the medical technologist chemistry had told me which is obviously different I talked to him social workers of the head that recall the insurance company. She is not suicidal today nor homicidal. She is able to get out of bed and eat but has multiple somatic complaints. She denies any depression or anxiety with the current medication regime and should be continued. She denies any auditory or visual hallucinations. 01/27/2019 chart reviewed and teamed this morning. Looks like that the patient is up and around and doing better today. She still gets lost at times. She'll have to go to [facility] home before she returns home. She is not eating. She has not expressed suicidal homicidal ideation. Objective - Vital Signs Vital signs: Vital Signs Temp 98.5 F 01/27/19 06:35 Pulse 91 01/27/19 06:35 Resp 16 01/27/19 06:35 BP 113/61 01/27/19 06:35 Pulse Ox 95 01/21/19 06:50 - Labs CBC & Chem 7: 01/15/19 16:30 01/15/19 16:30 Assessment and Plan Assessment: IDENTIFYING DATA: 68-year-old female patient HPI: Patient is admitted to the inpatient psychiatric unit on an involuntary basis. Petition was done by registered nurse verbalizing "not eating, not sleeping, not caring for her ADLs, not allowing family or [facility] to help her." Patient states that she called the ambulance because she was not eating. Says she's just been eating cottage cheese and peaches for 1 month's time. She has lost weight but does not know how much. She does state that she had some mashed potatoes and meatloaf today but she felt full. She is not sleeping well. She does at home she has not been taking her medications as prescribed. She admits to depression every day. She admits to anxiety says she used to get panic attacks. No recent hallucinations. She says she has not been hungry. She verbalizes that her memory is terrible. She says she thinks that she has Alzheimer's. She says she probably hasn't been not taking her medications because she is scared to take anything. She reports she's not been going to her treatment at [facility] and she doesn't know why. PAST PSYCHIATRIC HISTORY: Patient has recently been in treatment with [facility] but has not been going to her appointments it sounds and relays that she doesn't know why. Most recent psychotropic medications appear to be Lithobid 600 M at bedtime Luvox and 100 mgrams twice a day Zyprexa 5 mg at bedtime. She doesn't remember being on Luvox, doesn't remember if it helped. She does remember Zyprexa. she does seem to remember lithium. She feels like her medication probably was not working for her. She does not years ago she had shock treatments. She does see a counselor at [facility] and sees Dr. Snyder for her medications. She denies any history of bipolar disorder. She has had psychiatric hospitalization a few times when she was 23 years old. Denies any history of suicide attempts. PMH: "I don't think so." Per chart history she is on Glucophage, potassium chloride, Synthroid, Lasix, calcium vitamin D, Lipitor, atenolol. ALLERGIES: Travist D MEDICATIONS: Tylenol when necessary, Maalox when necessary, Ativan when necessary, milk of magnesia when necessary, Zofran when necessary, Protonix CHEMICAL DEPENDENCY HISTORY: Patient denies FAMILY PSYCHIATRIC HISTORY: Denies FAMILY CHEMICAL DEPENDENCY HISTORY: None known at this time. SOCIAL HISTORY: She currently lives by herself. She says she does not have a guardian. She's been once and . She has 2 children. She does not currently work. She is on [employer]. MENTAL STATUS EXAM: She is alert and cooperative with the interview. Her affect overall is restricted. Her mood is described as "fed up." She denies any current thoughts of harm to self or others. She denies any auditory or visual hallucinations. She is not oriented to place. She is oriented to city and month. She is not oriented to date or year stating that it's "09." She is oriented to day of week. She does not show any agitation. Her insight is limited, judgment shows evidence of recent impairment. 01/18/2019: This is a 68-year-old female who is cooperative with interview but is lying in breath after eating breakfast at 11:30 in the morning. She remains with little to no appetite, depressed, anxious and has a fear of eating food. She sleeps but states she is not rested. She remains anxious. She would rather at this point. 01/19/2019: This is 68-year-old female with flat affect and walks slowly to the interview room. She ate a small amount how pancakes this morning and felt full. She remains with flat facies small shuffling gait and severely depressed with almost a fear of eating. She remains less anxious and will decrease her Klonopin today. 01/20/2019: This is a 68-year-old female who still remains with flat affect walks very slowly to the interview room with a very unsteady gait. She continues to eat small amount of food. She remains severely depressed and well adjust her medications accordingly. She remains suicidal in nature. Depression 8 out of 10, anxiety 8 out of 10. 01/21/2019: This is a 68-year-old female who was lying in bed is still remains with a flat affect and has been isolative into her room. She remains depressed and suicidal. She remains anxious requiring frequent medication 01/24/2019: This 68-year-old female was able to communicate today for the first time and has a reactive affect. She has less anxiety and less depression today 01/25/2019; this is 68-year-old female was able to communicate today and stated she has a stomachache and that she does not sleep at night. She sta hernan that she is less depressed today than yesterday using a scale of 10 she is 2 out of 10 and has no anxiety. 01/26/2019: This is 68-year-old female was able to communicate better today and said she had a stomachache as usual. I asked her to get up and move and she was able to get dressed and was ambulating on the unit. She still remains a little confused and will continue her Aricept and Namenda as well as her Effexor and methylphenidate. She is at the point where she be transitioned to an [facility] home like [facility] to get more stable before she goes back to home. 01/27/2019: This 68-year-old female is able to communicate today and able to go to breakfast and sporadically going to groups. She does not appear agitated but does still be a little confused. We'll continue with Aricept and Namenda Effexor and methylphenidate. 15 minute checks will be observed and working milieu safety adhere to. (1) Major depressive disorder, recurrent, severe with psychotic features Current Visit: Yes Status: Acute Code(s): F33.3 - MAJOR DEPRESSV DISORDER, RECURRENT, SEVERE W PSYCH SYMPTOMS SNOMED Code(s): 31443498 (2) Major depressive disorder, recurrent, severe with psychotic features Current Visit: Yes Status: Acute Priority: High Code(s): F33.3 - MAJOR DEPRESSV DISORDER, RECURRENT, SEVERE W PSYCH SYMPTOMS SNOMED Code(s): 66860061 Plan: PLAN: Patient will be admitted to the inpatient psychiatric unit [facility] on a involuntary basis. Second clinical cert is done based on the patient's depression and lack of care for self, has also been not following up with outpatient treatment. At this time we'll stop Lexapro to help with depression and anxiety we'll monitor her tolerability and consider further titration as needed. We will try to attempt to receive outpatient records from [facility] with medication history. We'll check a lithium level she was recently on lithium multiple seems to have been noncompliant recently. We will look into support systems. Medical consultation will be ordered and Baseline laboratory workup be done the patient. Ativan when necessary as ordered for anxiety. Will add Zoloft 25 mg at bedtime plus Mirapex 0.5 mg by mouth daily at bedtime for restless leg. She also be placed on Risperdal 0.25 mg twice a day. She has a great done of anxiety and will switch from Ativan to clonazepam 01/18/2019: Discussed with patient increase of Zoloft 50 mg by mouth daily at bedtime for depression and anxiety, continue Klonopin until I can get that he titration of Zoloft at least to 75 mg 100, Risperdal 0.25 mg remains at twice a day, will add Megace 40 mg 4 times a day for appetite increase and will use Provigil for focusing concentration and motivation during the daytime which will aid in her being able to get to sleep better at night. The goal is not have her seat during the day decrease depression and decrease anxiety and participate in hughes milieu therapeutic environment. 01/19/2019: Discussed in detail with patient regarding the benefit risk ratio of her following medications including Zoloft and risperidone, Megace, Provigil. Encouraged her to eat at lunchtime today and to engage in hughes milieu activities but states she has difficult time focusing and concentrating. I did encourage her to go anyways to be around other people and see how they handle coping skills except 01/20/2019 discussed with patient that changing from Zoloft to Effexor may be a better bet benefit. She'll be increased to 75 mg by mouth daily at bedtime. Continue Risperdal for agitated psychosis. We'll discontinue Provigil to lack of activation and switch to methylphenidate 10 mg after breakfast. She has minimal skills to take care of herself and will order an MRI for his think she has cortical and temporoparietal atrophy. 01/21/2019: Patient unwilling to sign for MRI and will assume that she has dementia. Will add 5 mg Aricept to bedtime and maintain all other medications as written. She will be followed on 15 minute checks usual protocol for the unit. Supportive care 01/22/2019: patient is still not motivated and non responding to current medications. 15 minute checks. Increase ritalin to 20 mg po qam and add namenda 5 mg po qhs. 01/23/2019: This 68-year-old female has little motivation and appears to start responding to current regimen of medications. 15 minute checks for the maintained. She did have the addition of Namenda last night and increase of Ritalin today. We'll follow and observe today for any medication adjustments needed. 01/24/2019: This is 68-year-old female has little motivation appears to start responded current regimen of medications. Will increase Ritalin to twice a day 20 mg and continue Aricept and Namenda along with Effexor. 01/25/2019: This 68-year-old female has little motivation appears to be childlike in nature. We'll increase her Effexor to 225 mg XR and encourage her to get out of bed and participate. I will try to engage the nursing staff to assist in getting up but due to hughes milieu may be difficult at the present time. 01/26/2019. As discussed above the 68-year-old female has more motivation today and still appears to be childlike in nature. Her medications remain as outlined in the chart. Effexor for mood, Aricept and Namenda for early neurocognitive disorder mild, Risperdal 0.25 mg twice a day for mild psychosis, Megace 80 mg 4 times a day for appetite. Anticipate discharge within the next couple days to get house. 01/27/2019: No change in medications today. She'll remain on the online m edications Effexor 70 Namenda Risperdal Megace and Ritalin. She'll remain on 15 minute checks as usual. Possible discharge on Thursday Time with Patient: Less than 30
[2019-01-27] MEDS: MAG HYDROX/AL HYDROX/SIMETH 30 ML CUP PO PRN ×2 (14:00→19:08)
[2019-01-27] MEDS: MEMANTINE 5 MG TAB PO SCH (20:56)
[2019-01-27] MEDS: DONEPEZIL 5 MG TAB PO SCH (20:56)
[2019-01-27] MEDS: PRAMIPEXOLE 0.5 MG TAB PO SCH (20:57)
[2019-01-28] MEDS: clonazePAM 0.5 MG TAB PO SCH ×3 (07:53→20:50)
[2019-01-28] MEDS: PANTOPRAZOLE 40 MG TABLET PO SCH (07:55)
[2019-01-28] MEDS: CLOTRIMAZOLE 1% CREAM 15 GM TUBE TOPICAL SCH ×2 (07:55→20:50)
[2019-01-28] MEDS: METHYLPHENIDATE HCL 10 MG TAB PO SCH ×2 (07:55→18:18)
[2019-01-28] MEDS: risperiDONE 0.25 MG TAB PO SCH ×2 (07:56→20:51)
[2019-01-28] MEDS: VENLAFAXINE HCL ER 75 MG CAP PO SCH (07:56)
[2019-01-28] MEDS: MEGESTROL 40 MG TAB PO SCH ×4 (07:56→20:50)
[2019-01-28] MEDS: MAG HYDROX/AL HYDROX/SIMETH 30 ML CUP PO PRN ×2 (09:03→14:00)
--- NOTE | 2019-01-28 10:55 | P.PN ---
Subjective Progress Note Date: 01/28/19 Principal diagnosis: Depressive disorder severe with underlying eating disorder Chart reviewed patient discussed in team this morning discussed with nursing staff. Interviewed the patient who was severely depressed 10 out of 10, 10 on 10 anxiety fearful anxious paranoid and stated she had ECT 10 years ago. She stated that was all call her and ruined her memory. She stated that most of the [facility] isolated and is doing the same on the unit here. 01/18/2019: Chart reviewed, patient discussed with nursing staff in detail, discussed in team regarding her depression poor appetite and poor participation and no motivation. She stated the last time she had ECT around her memory and does not want to try that again. She is depressed hopeless helpless overwhelmed night eating poor sleep body aches. 01/19/2019: Chart reviewed, discussed in detail with nursing staff, discussed in team meeting regarding her depression, poor appetite, poor concentration, and little to no motivation. She again feels hopeless helpless overwhelmed depressed and feels like she has no room in her stomach for food but attempts to eat. She complains of stomach ache. She states she is able to sleep at night. 01/20/2019: Chart reviewed and discussed with nursing staff regarding feeding sleeping and caring for herself, discussed in team meeting regarding her de pression poor appetite and poor concentration no motivation and remains hopeless helpless and suicidal. She still complains about stomach and not able to eat much. 01/21/2019: Chart reviewed and discussed with nursing staff, discussed with social work and recent discussion with daughter. She continues to be depressed poor appetite and poor communication no motivation and suicidal 01/22/2019: chart reviewed and discussed with nursing staff. She makes poor eye contact and poor communication expressing depression and anxiety 01/23/2019: Chart reviewed and discussed with nursing staff as well as walk patient out of my office. She is awake talks softly has no major complaints except her feet are dry she still remains depressed anxious hopeless and overwhelmed. She is did eat some breakfast this morning. 01/24/2019: Chart reviewed, discussed with nursing staff, discussed with public health social worker who states that the insurance company would like he got to talk to discuss why she is not improving and discussed in detail with the patient today who was able to respond in a meaningful way. She was able to tell me she dropped out of high school in ninth grade and help raise her brothers and sisters from her mother who is apart sleep and had many men in her life. She is been and has 2 children herself. She's had mental illness most of her life she states. She has been able to eat and able to communicate better since increasing her medications. She is not highly motivated to get out of bed since she feels shy around other people. 01/25/2019 chart reviewed and discussed with insurance outside medical sales representative regarding her care and discussed with team today regarding the need to keep this woman up and out of bed so she is sleeps at nighttime not during the daytime. She denies homicidal ideation still remains with mild suicidal ideation but appears to be getting better. She has multiple subsequent somatic complaints including her stomach ache and feeling tired and fatigued. 01/26/2019: Chart reviewed and discussed with team regarding what the outside medical sales representative had told me which is obviously different I talked to him social workers of the head that recall the insurance company. She is not suicidal today nor homicidal. She is able to get out of bed and eat but has multiple somatic complaints. She denies any depression or anxiety with the current medication regime and should be continued. She denies any auditory or visual hallucinations. 01/27/2019 chart reviewed and teamed this morning. Looks like that the patient is up and around and doing better today. She still gets lost at times. She'll have to go to [facility] home before she returns home. She is not eating. She has not expressed suicidal homicidal ideation. 01/28/2019 chart reviewed discussion and team about placement and [facility] home is still in process she is eating more now. She tries to participate. She denies homicidal suicidal ideation Objective - Vital Signs Vital signs: Vital Signs Temp 98.5 F 01/28/19 06:45 Pulse 88 01/28/19 06:45 Resp 20 01/28/19 06:45 BP 131/68 01/28/19 06:45 Pulse Ox 95 01/21/19 06:50 - Labs CBC & Chem 7: 01/15/19 16:30 01/15/19 16:30 Assessment and Plan Assessment: IDENTIFYING DATA: 68-year-old female patient HPI: Patient is admitted to the inpatient psychiatric unit on an involuntary basis. Petition was done by registered nurse verbalizing "not eating, not sleeping, not caring for her ADLs, not allowing family or [facility] to help her." Patient states that she called the ambulance because she was not eating. Says she's just been eating cottage cheese and peaches for 1 month's time. She has lost weight but does not know how much. She does state that she had some mashed potatoes and meatloaf today but she felt full. She is not sleeping well. She does at home she has not been taking her medications as prescribed. She admits to depression every day. She admits to anxiety says she used to get panic attacks. No recent hallucinations. She says she has not been hungry. She verbalizes that her memory is terrible. She says she thinks that she has Alzheimer's. She says she probably hasn't been not taking her medications because she is scared to take anything. She reports she's not been going to her treatment at [facility] and she doesn't know why. PAST PSYCHIATRIC HISTORY: Patient has recently been in treatment with [facility] but has not been going to her appointments it sounds and relays that she doesn't know why. Most recent psychotropic medications appear to be Lithobid 600 M at bedtime Luvox and 100 mgrams twice a day Zyprexa 5 mg at bedtime. She doesn't remember being on Luvox, doesn't remember if it helped. She does remember Zyprexa. she does seem to remember lithium. She feels like her medication probably was not working for her. She does not years ago she had shock treatments. She does see a counselor at [facility] and sees Dr. Snyder for her medications. She denies any history of bipolar disorder. She has had [facility] hospitalization a few times when she was 23 years old. Denies any history of suicide attempts. PMH: "I don't think so." Per chart history she is on Glucophage, potassium chloride, Synthroid, Lasix, calcium vitamin D, Lipitor, atenolol. ALLERGIES: Travist D MEDICATIONS: Tylenol when necessary, Maalox when necessary, Ativan when necessary, milk of magnesia when necessary, Zofran when necessary, Protonix CHEMICAL DEPENDENCY HISTORY: Patient denies FAMILY PSYCHIATRIC HISTORY: Denies FAMILY CHEMICAL DEPENDENCY HISTORY: None known at this time. SOCIAL HISTORY: She currently lives by herself. She says she does not have a guardian. She's been once and . She has 2 children. She does not currently work. She is on [employer]. MENTAL STATUS EXAM: She is alert and cooperative with the interview. Her affect overall is restricted. Her mood is described as "fed up." She denies any current thoughts of harm to self or others. She denies any auditory or visual hallucinations. She is not oriented to place. She is oriented to city and month. She is not oriented to date or year stating that it's "09." She is oriented to day of week. She does not show any agitation. Her insight is limited, judgment shows evidence of recent impairment. 01/18/2019: This is a 68-year-old female who is cooperative with interview but is lying in breath after eating breakfast at 11:30 in the morning. She remains with little to no appetite, depressed, anxious and has a fear of eating food. She sleeps but states she is not rested. She remains anxious. She would rather at this point. 01/19/2019: This is 68-year-old female with flat affect and walks s lowly to the interview room. She ate a small amount how pancakes this morning and felt full. She remains with flat facies small shuffling gait and severely depressed with almost a fear of eating. She remains less anxious and will decrease her Klonopin today. 01/20/2019: This is a 68-year-old female who still remains with flat affect walks very slowly to the interview room with a very unsteady gait. She continues to eat small amount of food. She remains severely depressed and well adjust her medications accordingly. She remains suicidal in nature. Depression 8 out of 10, anxiety 8 out of 10. 01/21/2019: This is a 68-year-old female who was lying in bed is still remains with a flat affect and has been isolative into her room. She remains depressed and suicidal. She remains anxious requiring frequent medication 01/24/2019: This 68-year-old female was able to communicate today for the first time and has a reactive affect. She has less anxiety and less depression today 01/25/2019; this is 68-year-old female was able to communicate today and stated she has a stomachache and that she does not sleep at night. She states that she is less depressed today than yesterday using a scale of 10 she is 2 out of 10 and has no anxiety. 01/26/2019: This is 68-year-old female was able to communicate better today and said she had a stomachache as usual. I asked her to get up and move and she was able to get dressed and was ambulating on the unit. She still remains a little confused and will continue her Aricept and Namenda as well as her Effexor and methylphenidate. She is at the point where she be transitioned to an [facility] home like [facility] to get more stable before she goes back to home. 01/27/2019: This 68-year-old female is able to communicate today and able to go to breakfast and sporadically going to groups. She does not appear agitated but does still be a little confused. We'll continue with Aricept and Namenda Effexor and methylphenidate. 15 minute checks will be observed and working milieu safety adhere to. (1) Major depressive disorder, recurrent, severe with psychotic features Current Visit: Yes Status: Acute Code(s): F33.3 - MAJOR DEPRESSV DISORDER, RECURRENT, SEVERE W PSYCH SYMPTOMS SNOMED Code(s): 94388056 (2) Major depressive disorder, recurrent, severe with psychotic features Current Visit: Yes Status: Acute Priority: High Code(s): F33.3 - MAJOR DEPRESSV DISORDER, RECURRENT, SEVERE W PSYCH SYMPTOMS SNOMED Code(s): 05253222 Plan: PLAN: Patient will be admitted to the inpatient psychiatric unit [facility] on a involuntary basis. Second clinical cert is done based on the patient's depression and lack of care for self, has also been not following up with outpatient treatment. At this time we'll stop Lexapro to help with depression and anxiety we'll monitor her tolerability and consider further titration as needed. We will try to attempt to receive outpatient records from [facility] with medication history. We'll check a lithium level she was recently on lithium multiple seems to have been noncompliant recently. We will look into support systems. Medical consultation will be ordered and Baseline laboratory workup be done the patient. Ativan when necessary as ordered for anxiety. Will add Zoloft 25 mg at bedtime plus Mirapex 0.5 mg by mouth daily at bedtime for restless leg. She also be placed on Risperdal 0.25 mg twice a day. She has a great done of anxiety and will switch from Ativan to clonazepam 01/18/2019: Discussed with patient increase of Zoloft 50 mg by mouth daily at bedtime for depression and anxiety, continue Klonopin until I can get that he titration of Zoloft at least to 75 mg 100, Risperdal 0.25 mg remains at twice a day, will add Megace 40 mg 4 times a day for appetite increase and will use Provigil for focusing concentration and motivation during the daytime which will aid in her being able to get to sleep better at night. The goal is not have her seat during the day decrease depression and decrease anxiety and participate in [facility] milieu therapeutic environment. 01/19/2019: Discussed in detail with patient regarding the benefit risk ratio of her following medications including Zoloft and risperidone, Megace, Provigil. Encouraged her to eat at lunchtime today and to engage in hug[facility] milieu activities but states she has difficult time focusing and concentrating. I did encourage her to go anyways to be around other people and see how they handle coping skills except 01/20/2019 discussed with patient that changing from Zoloft to Effexor may be a better bet benefit. She'll be increased to 75 mg by mouth daily at bedtime. Continue Risperdal for agitated psychosis. We'll discontinue Provigil to lack of activation and switch to methylphenidate 10 mg after breakfast. She has minimal skills to take care of herself and will order an MRI for his think she has cortical and temporoparietal atrophy. 01/21/2019: Patient unwilling to sign for MRI and will assume that she has dementia. Will add 5 mg Aricept to bedtime and maintain all other medications as written. She will be followed on 15 minute checks usual protocol for the unit. Supportive care 01/22/2019: patient is still not motivated and non responding to current medications. 15 minute checks. Increase ritalin to 20 mg po qam and add namenda 5 mg po qhs. 01/23/2019: This 68-year-old female has little motivation and appears to start responding to current regimen of medications. 15 minute checks for the maintained. She did have the addition of Namenda last night and increase of Ritalin today. We'll follow and observe today for any medication adjustments needed. 01/24/2019: This is 68-year-old female has little motivation appears to start responded current regimen of medications. Will increase Ritalin to twice a day 20 mg and continue Aricept and Namenda along with Effexor. 01/25/2019: This 68-year-old female has little motivation appears to be childlike in nature. We'll increase her Effexor to 225 mg XR and encourage her to get out of bed and participate. I will try to engage the nursing staff to assist in getting up but due to hughes milieu may be difficult at the present time. 01/26/2019. As discussed above the 68-year-old female has more motivation today and still appears to be childlike in nature. Her medications remain as outlined in the chart. Effexor for mood, Aricept and Namenda for early neurocognitive disorder mild, Risperdal 0.25 mg twice a day for mild psychosis, Megace 80 mg 4 times a day for appetite. Anticipate discharge within the next couple days to get house. 01/27/2019: No change in medications today. She'll remain on the online medications Effexor 70 Namenda Risperdal Megace and Ritalin. She'll remain on 15 minute checks as usual. Possible discharge on Thursday01/28/2019: Appetite is increased so we'll maintain the Megace 80 mg 4 times a day she remains on her rest of her medications Effexor Namenda Risperdal Megace. 15 minute checks as usual. Looking at possible [facility] home on Thursday
[2019-01-28] MEDS: PRAMIPEXOLE 0.5 MG TAB PO SCH (20:50)
[2019-01-28] MEDS: DONEPEZIL 5 MG TAB PO SCH (20:50)
[2019-01-28] MEDS: MEMANTINE 5 MG TAB PO SCH (20:50)
[2019-01-29] MEDS: VENLAFAXINE HCL ER 75 MG CAP PO SCH (08:36)
[2019-01-29] MEDS: risperiDONE 0.25 MG TAB PO SCH ×2 (08:37→21:44)
[2019-01-29] MEDS: MEGESTROL 40 MG TAB PO SCH ×4 (08:37→21:44)
[2019-01-29] MEDS: clonazePAM 0.5 MG TAB PO SCH ×3 (08:37→21:43)
[2019-01-29] MEDS: PANTOPRAZOLE 40 MG TABLET PO SCH (08:37)
[2019-01-29] MEDS: METHYLPHENIDATE HCL 10 MG TAB PO SCH ×2 (08:43→17:20)
[2019-01-29] MEDS: CLOTRIMAZOLE 1% CREAM 15 GM TUBE TOPICAL SCH ×2 (08:57→21:45)
[2019-01-29] MEDS: MAG HYDROX/AL HYDROX/SIMETH 30 ML CUP PO PRN ×2 (09:07→18:39)
[2019-01-29 13:58] LABS: Amorphous Sediment,Urine Moderate /hpf; Appearance,Urine Turbid (Clear); Bilirubin,Urine Negative (Negative); Blood,Urine Negative (Negative); Color,Urine Yellow; Glucose,Urine (UA) Negative (Negative); Ketones,Urine Negative (Negative); Leukocyte Esterase,Urine Negative (Negative); Mucus,Urine Moderate /hpf; Nitrite,Urine Negative (Negative); PH, Urine 7.5 (5.0-8.0); Protein,Urine Trace (Negative); Specific Gravity,Urine 1.018 (1.001-1.035); Squamous Epithelial Cell,Urine 5 /hpf (0-4); Urobilinogen,Urine <2.0 mg/dL (<2.0)
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
[2019-01-29 15:05] LABS: Albumin 3.4 g/dL (3.5-5.0); Calcium 9.6 mg/dL (8.4-10.2); Potassium 4.7 mmol/L (3.5-5.1); Total Bilirubin 0.4 mg/dL (0.2-1.3); Total Protein 6.2 g/dL (6.3-8.2)
[2019-01-29] MEDS: MEMANTINE 5 MG TAB PO SCH (21:43)
[2019-01-29] MEDS: PRAMIPEXOLE 0.5 MG TAB PO SCH (21:43)
[2019-01-29] MEDS: DONEPEZIL 5 MG TAB PO SCH (21:44)
[2019-01-30] MEDS: clonazePAM 0.5 MG TAB PO SCH ×3 (08:27→21:12)
[2019-01-30] MEDS: VENLAFAXINE HCL ER 75 MG CAP PO SCH (08:27)
[2019-01-30] MEDS: risperiDONE 0.25 MG TAB PO SCH ×2 (08:28→21:12)
[2019-01-30] MEDS: MEGESTROL 40 MG TAB PO SCH ×4 (08:29→21:12)
[2019-01-30] MEDS: METHYLPHENIDATE HCL 10 MG TAB PO SCH ×2 (08:42→17:55)
[2019-01-30] MEDS: PANTOPRAZOLE 40 MG TABLET PO SCH (08:42)
[2019-01-30] MEDS: CLOTRIMAZOLE 1% CREAM 15 GM TUBE TOPICAL SCH ×2 (09:11→21:13)
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
[2019-01-30] MEDS: MEMANTINE 5 MG TAB PO SCH (21:12)
[2019-01-30] MEDS: DONEPEZIL 5 MG TAB PO SCH (21:12)
[2019-01-30] MEDS: PRAMIPEXOLE 0.5 MG TAB PO SCH (21:12)
[2019-01-31] MEDS: METHYLPHENIDATE HCL 10 MG TAB PO SCH ×2 (08:20→18:08)
[2019-01-31] MEDS: PANTOPRAZOLE 40 MG TABLET PO SCH (08:20)
[2019-01-31] MEDS: clonazePAM 0.5 MG TAB PO SCH ×2 (09:28→21:09)
[2019-01-31] MEDS: risperiDONE 0.25 MG TAB PO SCH ×2 (09:30→21:10)
[2019-01-31] MEDS: MEGESTROL 40 MG TAB PO SCH ×4 (09:30→21:11)
[2019-01-31] MEDS: VENLAFAXINE HCL ER 75 MG CAP PO SCH (09:31)
[2019-01-31] MEDS: CLOTRIMAZOLE 1% CREAM 15 GM TUBE TOPICAL SCH ×2 (09:32→22:47)
--- NOTE | 2019-01-31 11:15 | P.PN ---
Subjective Progress Note Date: 01/31/19 Principal diagnosis: Depressive disorder severe with underlying eating disorder Chart reviewed patient discussed in team this morning discussed with nursing staff. Interviewed the patient who was severely depressed 10 out of 10, 10 on 10 anxiety fearful anxious paranoid and stated she had ECT 10 years ago. She stated that was all call her and ruined her memory. She stated that most of the [facility] isolated and is doing the same on the unit here. 01/18/2019: Chart reviewed, patient discussed with nursing staff in detail, discussed in team regarding her depression poor appetite and poor participation and no motivation. She stated the last time she had ECT around her memory and does not want to try that again. She is depressed hopeless helpless overwhelmed night eating poor sleep body aches. 01/19/2019: Chart reviewed, discussed in detail with nursing staff, discussed in team meeting regarding her depression, poor appetite, poor concentration, and little to no motivation. She again feels hopeless helpless overwhelmed depressed and feels like she has no room in her stomach for food but attempts to eat. She complains of stomach ache. She states she is able to sleep at night. 01/20/2019: Chart reviewed and discussed with nursing staff regarding feeding sleeping and caring for herself, discussed in team meeting regarding her de pression poor appetite and poor concentration no motivation and remains hopeless helpless and suicidal. She still complains about stomach and not able to eat much. 01/21/2019: Chart reviewed and discussed with nursing staff, discussed with social work and recent discussion with daughter. She continues to be depressed poor appetite and poor communication no motivation and suicidal 01/22/2019: chart reviewed and discussed with nursing staff. She makes poor eye contact and poor communication expressing depression and anxiety 01/23/2019: Chart reviewed and discussed with nursing staff as well as walk patient out of my office. She is awake talks softly has no major complaints except her feet are dry she still remains depressed anxious hopeless and overwhelmed. She is did eat some breakfast this morning. 01/24/2019: Chart reviewed, discussed with nursing staff, discussed with social science teacher who states that the insurance company would like he got to talk to discuss why she is not improving and discussed in detail with the patient today who was able to respond in a meaningful way. She was able to tell me she dropped out of high school in ninth grade and help raise her brothers and sisters from her mother who is apart sleep and had many men in her life. She is been and has 2 children herself. She's had mental illness most of her life she states. She has been able to eat and able to communicate better since increasing her medications. She is not highly motivated to get out of bed since she feels shy around other people. 01/25/2019 chart reviewed and discussed with insurance medical dir regarding her care and discussed with team today regarding the need to keep this woman up and out of bed so she is sleeps at nighttime not during the daytime. She denies homicidal ideation still remains with mild suicidal ideation but appears to be getting better. She has multiple subsequent somatic complaints including her stomach ache and feeling tired and fatigued. 01/26/2019: Chart reviewed and discussed with team regarding what the medical dir had told me which is obviously different I talked to him social workers of the head that recall the insurance company. She is not suicidal today nor homicidal. She is able to get out of bed and eat but has multiple somatic complaints. She denies any depression or anxiety with the current medication regime and should be continued. She denies any auditory or visual hallucinations. 01/27/2019 chart reviewed and teamed this morning. Looks like that the patient is up and around and doing better today. She still gets lost at times. She'll have to go to [facility] home before she returns home. She is not eating. She has not expressed suicidal homicidal ideation. 01/28/2019 chart reviewed discussion and team about placement and AFC home is still in process she is eating more now. She tries to participate. She denies homicidal suicidal ideation 01/31/2019: Call this weekend indicates she still feels hopeless helpless and overwhelmed with the increase of Effexor to 300 mg by mouth daily at bedtime. She still has little motivation and difficulty functioning independently and does not go to groups because she feels she does not know any answers to the questions when it's a reflection group. She has difficulty sleeping at night poor concentration and low self-esteem Objective - Vital Signs Vital signs: Vital Signs Temp 97.7 F 01/31/19 06:49 Pulse 82 01/31/19 06:49 Resp 14 01/31/19 06:49 BP 109/53 01/31/19 06:49 Pulse Ox 95 01/21/19 06:50 Intake & Output 01/30/19 01/31/19 01/31/19 18:59 06:59 18:59 Weight 77.8 kg 77.8 kg - Labs CBC & Chem 7: 01/15/19 16:30 01/29/19 14:31 Assessment and Plan Assessment: IDENTIFYING DATA: 68-year-old female patient HPI: Patient is admitted to the inpatient psychiatric unit on an involuntary basis. Petition was done by registered nurse verbalizing "not eating, not sleeping, not caring for her ADLs, not allowing family or [facility] to help her." Patient states that she called the ambulance because she was not eating. Says she's just been eating cottage cheese and peaches for 1 month's time. She has lost weight but does not know how much. She does state that she had some mashed potatoes and meatloaf today but she felt full. She is not sleeping well. She does at home she has not been taking her medications as prescribed. She admits to depression every day. She admits to anxiety says she used to get panic attacks. No recent hallucinations. She says she has not been hungry. She verbalizes that her memory is terrible. She says she thinks that she has Alzheimer's. She says she probably hasn't been not taking her medications because she is scared to take anything. She reports she's not been going to her treatment at [facility] and she doesn't know why. PAST PSYCHIATRIC HISTORY: Patient has recently been in treatment with [facility] but has not been going to her appointments it sounds and relays that she doesn't know why. Most recent psychotropic medications appear to be Lithobid 600 M at bedtime Luvox and 100 mgrams twice a day Zyprexa 5 mg at bedtime. She doesn't remember being on Luvox, doesn't remember if it helped. She does remember Zyprexa. she does seem to remember lithium. She feels like her medication probably was not working for her. She does not years ago she had shock treatments. She does see a counselor at [facility] and sees Dr. Snyder for her medications. She denies any history of bipolar disorder. She has had psychiatric hospitalization a few times when she was 23 years old. Denies any history of suicide attempts. PMH: "I don't think so." Per chart history she is on Glucophage, potassium chloride, Synthroid, Lasix, calcium vitamin D, Lipitor, atenolol. ALLERGIES: Travist D MEDICATIONS: Tylenol when necessary, Maalox when necessary, Ativan when necessary, milk of magnesia when necessary, Zofran when necessary, Protonix CHEMICAL DEPENDENCY HISTORY: Patient denies FAMILY PSYCHIATRIC HISTORY: Denies FAMILY CHEMICAL DEPENDENCY HISTORY: None known at this time. SOCIAL HISTORY: She currently lives by herself. She says she does not have a guardian. She's been once and . She has 2 children. She does not currently work. She is on [employer]. MENTAL STATUS EXAM: She is alert and cooperative with the interview. Her affect overall is restricted. Her mood is described as "fed up." She denies any current thoughts of harm to self or others. She denies any auditory or visual hallucinations. She is not oriented to place. She is oriented to city and month. She is not oriented to date or year stating that it's "09." She is oriented to day of week. She does not show any agitation. Her insight is limited, judgment shows evidence of recent impairment. 01/18/2019: This is a 68-year-old female who is cooperative with interview but is lying in breath after eating breakfast at 11:30 in the morning. She remains with little to no appetite, depressed, anxious and has a fear of eating food. She sleeps but states she is not rested. She remains anxious. She would rather at this point. 01/19/2019: This is 68-year-old female with flat affect and walks slowly to the interview room. She ate a small amount how pancakes this morning and felt full. She remains with flat facies small shuffling gait and severely depressed with almost a fear of eating. She remains less anxious and will decrease her Klonopin today. 01/20/2019: This is a 68-year-old female who still remains with flat affect walks very slowly to the interview room with a very unsteady gait. She continues to eat small amount of food. She remains severely depressed and well adjust her medications accordingly. She remains suicidal in nature. Depression 8 out of 10, anxiety 8 out of 10. 01/21/2019: This is a 68-year-old female who was lying in bed is still remains with a flat affect and has been isolative into her room. She remains depressed and suicidal. She remains anxious requiring frequent medication 01/24/2019: This 68-year-old female was able to communicate today for the first time and has a reactive affect. She has less anxiety and less depression today 01/25/2019; this is 68-year-old female was able to communicate today and stated she has a stomachache and that she does not sleep at night. She states that she is less depressed today than yesterday using a scale of 10 she is 2 out of 10 and has no anxiety. 01/26/2019: This is 68-year-old female was able to communicate better today and said she had a stomachache as usual. I asked her to get up and move and she was able to get dressed and was ambulating on the unit. She still remains a little confused and will continue her Aricept and Namenda as well as her Effexor and methylphenidate. She is at the point where she be transitioned to an [facility] home like [facility] to get more stable before she goes back to home. 01/27/2019: This 68-year-old female is able to communicate today and able to go to breakfast and sporadically going to groups. She does not appear agitated but does still be a little confused. We'll continue with Aricept and Namenda Effexor and methylphenidate. 15 minute checks will be observed and working milieu safety adhere to. 01/31/2019: This 68-year-old female who isolates herself and her room has, now for breakfast lunch and dinner and taking her medications. However with the increase of Effexor to 300 mg by mouth daily at bedtime have not noticed a great deal of difference in her depression and isolation. Will continue to evaluate and treat for continued depression. (1) Major depressive disorder, recurrent, severe with psychotic features Current Visit: Yes Status: Acute Code(s): F33.3 - MAJOR DEPRESSV DISORDER, RECURRENT, SEVERE W PSYCH SYMPTOMS SNOMED Code(s): 52132423 (2) Major depressive disorder, recurrent, severe with psychotic features Current Visit: Yes Status: Acute Priority: High Code(s): F33.3 - MAJOR DEPRESSV DISORDER, RECURRENT, SEVERE W PSYCH SYMPTOMS SNOMED Code(s): 38979226 Plan: PLAN: Patient will be admitted to the inpatient psychiatric unit [facility] on a involuntary basis. Second clinical cert is done based on the patient's depression and lack of care for self, has also been not following up with outpatient treatment. At this time we'll stop Lexapro to help with depression and anxiety we'll monitor her tolerability and consider further titration as needed. We will try to attempt to receive outpatient records from [facility] with medication history. We'll check a lithium level she was recently on lithium multiple seems to have been noncompliant recently. We will look into support systems. Medical consultation will be ordered and Baseline laboratory workup be done the patient. Ativan when necessary as ordered for anxiety. Will add Zoloft 25 mg at bedtime plus Mirapex 0.5 mg by mouth daily at bedtime for restless leg. She also be placed on Risperdal 0.25 mg twice a day. She has a great done of anxiety and will switch from Ativan to clonazepam 01/18/2019: Discussed with patient increase of Zoloft 50 mg by mouth daily at bedtime for depression and anxiety, continue Klonopin until I can get that he titration of Zoloft at least to 75 mg 100, Risperdal 0.25 mg remains at twice a day, will add Megace 40 mg 4 times a day for appetite increase and will use Provigil for focusing concentration and motivation during the daytime which will aid in her being able to get to sleep better at night. The goal is not have her seat during the day decrease depression and decrease anxiety and participate in hughes milieu therapeutic environment. 01/19/2019: Discussed in detail with patient regarding the benefit risk ratio of her following medications including Zoloft and risperidone, Megace, Provigil. Encouraged her to eat at lunchtime today and to engage in hughes milieu activities but states she has difficult time focusing and concentrating. I did encourage her to go anyways to be around other people and see how they handle coping skills except 01/20/2019 discussed with patient that changing from Zoloft to Effexor may be a better bet benefit. She'll be increased to 75 mg by mouth daily at bedtime. Continue Risperdal for agitated psychosis. We'll discontinue Provigil to lack of activation and switch to methylphenidate 10 mg after breakfast. She has minimal skills to take care of herself and will order an MRI for his think she has cortical and temporoparietal atrophy. 01/21/2019: Patient unwilling to sign for MRI and will assume that she has dementia. Will add 5 mg Aricept to bedtime and maintain all other medications as written. She will be followed on 15 minute checks usual protocol for the unit. Supportive care 01/22/2019: patient is still not motivated and non responding to current medications. 15 minute checks. Increase ritalin to 20 mg po qam and add namenda 5 mg po qhs. 01/23/2019: This 68-year-old female has little motivation and appears to start responding to current regimen of medications. 15 minute checks for the maintained. She did have the addition of Namenda last night and increase of Ritalin today. We'll follow and observe today for any medication adjustments needed. 01/24/2019: This is 68-year-old female has little motivation appears to start responded current regimen of medications. Will increase Ritalin to twice a day 20 mg and continue Aricept and Namenda along with Effexor. 01/25/2019: This 68-year-old female has little motivation appears to be childlike in nature. We'll increase her Effexor to 225 mg XR and encourage her to get out of bed and participate. I will try to engage the nursing staff to assist in getting up but due to hughes milieu may be difficult at the present time. 01/26/2019. As discussed above the 68-year-old female has more motivation today and still appears to be childlike in nature. Her medications remain as outlined in the chart. Effexor for mood, Aricept and Namenda for early neurocognitive disorder mild, Risperdal 0.25 mg twice a day for mild psychosis, Megace 80 mg 4 times a day for appetite. Anticipate discharge within the next couple days to get house. 01/27/2019: No change in medications today. She'll remain on the online medications Effexor 70 Namenda Risperdal Megace and Ritalin. She'll remain on 15 minute checks as usual. Possible discharge on Thursday01/28/2019: Appetite is increased so we'll maintain the Megace 80 mg 4 times a day she remains on her rest of her medications Effexor Namenda Risperdal Megace. 15 minute checks as usual. Looking at possible [facility]FC home on Thursday01/31/2019: On 01/28/[address] alcala an insurance company and he stated I should raise the Effexor to 300 mg which I did on 01/28/2019. She still remains hopeless helpless and overwhelmed. Looking at possible AFC placement this week as soon as one is available and still arguing maximum amount of assistance to this woman and continues to be on Effexor Namenda Risperdal Megace and Ritalin. Time with Patient: Less than 30
[2019-01-31] MEDS ORDERED: clonazePAM 0.5 MG TAB PO SCH (16:00)
[2019-01-31] MEDS: MEMANTINE 5 MG TAB PO SCH (21:10)
[2019-01-31] MEDS: DONEPEZIL 5 MG TAB PO SCH (21:10)
[2019-01-31] MEDS: PRAMIPEXOLE 0.5 MG TAB PO SCH (21:10)
[2019-02-01] MEDS: MEGESTROL 40 MG TAB PO SCH ×4 (09:11→21:06)
[2019-02-01] MEDS: PANTOPRAZOLE 40 MG TABLET PO SCH (09:11)
[2019-02-01] MEDS: METHYLPHENIDATE HCL 10 MG TAB PO SCH ×2 (09:11→17:56)
[2019-02-01] MEDS: VENLAFAXINE HCL ER 75 MG CAP PO SCH (09:12)
[2019-02-01] MEDS: risperiDONE 0.25 MG TAB PO SCH ×2 (09:12→21:06)
[2019-02-01] MEDS: clonazePAM 0.5 MG TAB PO SCH ×2 (09:13→21:06)
[2019-02-01] MEDS: MAG HYDROX/AL HYDROX/SIMETH 30 ML CUP PO PRN (09:55)
[2019-02-01] MEDS: CLOTRIMAZOLE 1% CREAM 15 GM TUBE TOPICAL SCH ×3 (10:09→22:34)
--- NOTE | 2019-02-01 12:08 | P.PN ---
Subjective Progress Note Date: 02/01/19 Principal diagnosis: Depressive disorder severe with underlying eating disorder Chart reviewed patient discussed in team this morning discussed with nursing staff. Interviewed the patient who was severely depressed 10 out of 10, 10 on 10 anxiety fearful anxious paranoid and stated she had ECT 10 years ago. She stated that was all call her and ruined her memory. She stated that most of the [facility] isolated and is doing the same on the unit here. 01/18/2019: Chart reviewed, patient discussed with nursing staff in detail, discussed in team regarding her depression poor appetite and poor participation and no motivation. She stated the last time she had ECT around her memory and does not want to try that again. She is depressed hopeless helpless overwhelmed night eating poor sleep body aches. 01/19/2019: Chart reviewed, discussed in detail with nursing staff, discussed in team meeting regarding her depression, poor appetite, poor concentration, and little to no motivation. She again feels hopeless helpless overwhelmed depressed and feels like she has no room in her stomach for food but attempts to eat. She complains of stomach ache. She states she is able to sleep at night. 01/20/2019: Chart reviewed and discussed with nursing staff regarding feeding sleeping and caring for herself, discussed in team meeting regarding her de pression poor appetite and poor concentration no motivation and remains hopeless helpless and suicidal. She still complains about stomach and not able to eat much. 01/21/2019: Chart reviewed and discussed with nursing staff, discussed with social work and recent discussion with daughter. She continues to be depressed poor appetite and poor communication no motivation and suicidal 01/22/2019: chart reviewed and discussed with nursing staff. She makes poor eye contact and poor communication expressing depression and anxiety 01/23/2019: Chart reviewed and discussed with nursing staff as well as walk patient out of my office. She is awake talks softly has no major complaints except her feet are dry she still remains depressed anxious hopeless and overwhelmed. She is did eat some breakfast this morning. 01/24/2019: Chart reviewed, discussed with nursing staff, discussed with social services specialist who states that the insurance company would like he got to talk to discuss why she is not improving and discussed in detail with the patient today who was able to respond in a meaningful way. She was able to tell me she dropped out of high school in ninth grade and help raise her brothers and sisters from her mother who is apart sleep and had many men in her life. She is been and has 2 children herself. She's had mental illness most of her life she states. She has been able to eat and able to communicate better since increasing her medications. She is not highly motivated to get out of bed since she feels shy around other people. 01/25/2019 chart reviewed and discussed with insurance medical office technician regarding her care and discussed with team today regarding the need to keep this woman up and out of bed so she is sleeps at nighttime not during the daytime. She denies homicidal ideation still remains with mild suicidal ideation but appears to be getting better. She has multiple subsequent somatic complaints including her stomach ache and feeling tired and fatigued. 01/26/2019: Chart reviewed and discussed with team regarding what the medical office technician had told me which is obviously different I talked to him social workers of the head that recall the insurance company. She is not suicidal today nor homicidal. She is able to get out of bed and eat but has multiple somatic complaints. She denies any depression or anxiety with the current medication regime and should be continued. She denies any auditory or visual hallucinations. 01/27/2019 chart reviewed and teamed this morning. Looks like that the patient is up and around and doing better today. She still gets lost at times. She'll have to go to [facility] home before she returns home. She is not eating. She has not expressed suicidal homicidal ideation. 01/28/2019 chart reviewed discussion and team about placement and AFC home is still in process she is eating more now. She tries to participate. She denies homicidal suicidal ideation 01/31/2019: Call this weekend indicates she still feels hopeless helpless and overwhelmed with the increase of Effexor to 300 mg by mouth daily at bedtime. She still has little motivation and difficulty functioning independently and does not go to groups because she feels she does not know any answers to the questions when it's a reflection group. She has difficulty sleeping at night poor concentration and low self-esteem 02/01/2019: She continues to feel hopeless helpless and overwhelmed. She was placed in 300 mg of Effexor XR and seems to be responding. She has difficult time integrating with other people and tends to isolate. She does talk about she has suicidal ideation and will take other pills if she went home. Objective - Vital Signs Vital signs: Vital Signs Temp 98.8 F 02/01/19 06:01 Pulse 78 02/01/19 06:01 Resp 16 02/01/19 06:01 BP 147/67 02/01/19 06:01 Pulse Ox 95 01/21/19 06:50 Intake & Output 01/31/19 02/01/19 02/01/19 18:59 06:59 18:59 Weight 77.8 kg - Labs CBC & Chem 7: 01/15/19 16:30 01/29/19 14:31 Labs: Microbiology - Last 24 Hours (Table) 01/31/19 22:42 Urine Culture - Preliminary Urine,Clean Catch Assessment and Plan Assessment: IDENTIFYING DATA: 68-year-old female patient HPI: Patient is admitted to the inpatient psychiatric unit on an involuntary basis. Petition was done by registered nurse verbalizing "not eating, not sleeping, not caring for her ADLs, not allowing family or [facility] to help her." Patient states that she called the ambulance because she was not eating. Says she's just been eating cottage cheese and peaches for 1 month's time. She has lost weight but does not know how much. She does state that she had some mashed potatoes and meatloaf today but she felt full. She is not sleeping well. She does at home she has not been taking her medications as prescribed. She admits to depression every day. She admits to anxiety says she used to get panic attacks. No recent hallucinations. She says she has not been hungry. She verbalizes that her memory is terrible. She says she thinks that she has Alzheimer's. She says she probably hasn't been not taking her medications because she is scared to take anything. She reports she's not been going to her treatment at [facility] and she doesn't know why. PAST PSYCHIATRIC HISTORY: Patient has recently been in treatment with [facility] but has not been going to her appointments it sounds and relays that she doesn't know why. Most recent psychotropic medications appear to be Lithobid 600 M at bedtime Luvox and 100 mgrams twice a day Zyprexa 5 mg at bedtime. She doesn't remember being on Luvox, doesn't remember if it helped. She does remember Zyprexa. she does seem to remember lithium. She feels like her medication probably was not working for her. She does not years ago she had shock treatments. She does see a counselor at [facility] and sees Dr. Snyder for her medications. She denies any history of bipolar disorder. She has had psychiatric hospitalization a few times when she was 23 years old. Denies any history of suicide attempts. PMH: "I don't think so." Per chart history she is on Glucophage, potassium chloride, Synthroid, Lasix, calcium vitamin D, Lipitor, atenolol. ALLERGIES: Travist D MEDICATIONS: Tylenol when necessary, Maalox when necessary, Ativan when necessary, milk of magnesia when necessary, Zofran when necessary, Protonix CHEMICAL DEPENDENCY HISTORY: Patient denies FAMILY PSYCHIATRIC HISTORY: Denies FAMILY CHEMICAL DEPENDENCY HISTORY: None known at this time. SOCIAL HISTORY: She currently lives by herself. She says she does not have a guardian. She's been once and . She has 2 children. She does not currently work. She is on SSI. MENTAL STATUS EXAM: She is alert and cooperative with the interview. Her affect overall is restricted. Her mood is described as "fed up." She denies any current thoughts of harm to self or others. She denies any auditory or visual hallucinations. She is not oriented to place. She is oriented to city and month. She is not oriented to date or year stating that it's "09." She is o riented to day of week. She does not show any agitation. Her insight is limited, judgment shows evidence of recent impairment. 01/18/2019: This is a 68-year-old female who is cooperative with interview but is lying in breath after eating breakfast at 11:30 in the morning. She remains with little to no appetite, depressed, anxious and has a fear of eating food. She sleeps but states she is not rested. She remains anxious. She would rather at this point. 01/19/2019: This is 68-year-old female with flat affect and walks slowly to the interview room. She ate a small amount how pancakes this morning and felt full. She remains with flat facies small shuffling gait and severely depressed with almost a fear of eating. She remains less anxious and will dec rease her Klonopin today. 01/20/2019: This is a 68-year-old female who still remains with flat affect walks very slowly to the interview room with a very unsteady gait. She continues to eat small amount of food. She remains severely depressed and well adjust her medications accordingly. She remains suicidal in nature. Depression 8 out of 10, anxiety 8 out of 10. 01/21/2019: This is a 68-year-old female who was lying in bed is still remains with a flat affect and has been isolative into her room. She remains depressed and suicidal. She remains anxious requiring frequent medication 01/24/2019: This 68-year-old female was able to communicate today for the first time and has a reactive affect. She has less anxiety and less depression today 01/25/2019; this is 68-year-old female was able to communicate today and stated she has a stomachache and that she does not sleep at night. She states that she is less depressed today than yesterday using a scale of 10 she is 2 out of 10 and has no anxiety. 01/26/2019: This is 68-year-old female was able to communicate better today and said she had a stomachache as usual. I asked her to get up and move and she was able to get dressed and was ambulating on the unit. She still guille ins a little confused and will continue her Aricept and Namenda as well as her Effexor and methylphenidate. She is at the point where she be transitioned to an [facility] home like [facility] to get more stable before she goes back to home. 01/27/2019: This 68-year-old female is able to communicate today and able to go to breakfast and sporadically going to groups. She does not appear agitated but does still be a little confused. We'll continue with Aricept and Namenda Effexor and methylphenidate. 15 minute checks will be observed and working milieu safety adhere to. 01/31/2019: This 68-year-old female who isolates herself and her room has, now for breakfast lunch and dinner and taking her medications. However with the increase of Effexor to 300 mg by mouth daily at bedtime have not noticed a great deal of difference in her depression and isolation. Will continue to evaluate and treat for continued depression. 02/01/2019: This 68-year-old female who tends to isolate herself in her room but has been able to come to 3 meals a day and occasional group. She continues to have thoughts of suicide by taking all of her medications when she gets home. (1) Major depressive disorder, recurrent, severe with psychotic features Current Visit: Yes Status: Acute Code(s): F33.3 - MAJOR DEPRESSV DISORDER, RECURRENT, SEVERE W PSYCH SYMPTOMS SNOMED Code(s): 18626426 (2) Major depressive disorder, recurrent, severe with psychotic features Current Visit: Yes Status: Acute Priority: High Code(s): F33.3 - MAJOR DEPRESSV DISORDER, RECURRENT, SEVERE W PSYCH SYMPTOMS SNOMED Code(s): 85429062 Plan: PLAN: Patient will be admitted to the inpatient psychiatric unit [facility] on a involuntary basis. Second clinical cert is done based on the patient's depression and lack of care for self, has also been not following up with outpatient treatment. At this time we'll stop Lexapro to help with depression and anxiety we'll monitor her tolerability and consider further titration as needed. We will try to attempt to receive outpatient records from [facility] with medication history. We'll check a lithium level she was recently on lithium multiple seems to have been noncompliant recently. We will look into support systems. Medical consultation will be ordered and Baseline laboratory workup be done the patient. Ativan when necessary as ordered for anxiety. Will add Zoloft 25 mg at bedtime plus Mirapex 0.5 mg by mouth daily at bedtime for restless leg. She also be placed on Risperdal 0.25 mg twice a day. She has a great done of anxiety and will switch from Ativan to clonazepam 01/18/2019: Discussed with patient increase of Zoloft 50 mg by mouth daily at bedtime for depression and anxiety, continue Klonopin until I can get that he titration of Zoloft at least to 75 mg 100, Risperdal 0.25 mg remains at twice a day, will add Megace 40 mg 4 times a day for appetite increase and will use Provigil for focusing concentration and motivation during the daytime which will aid in her being able to get to sleep better at night. The goal is not have her seat during the day decrease depression and decrease anxiety and participate in hughes milieu therapeutic environment. 01/19/2019: Discussed in detail with patient regarding the benefit risk ratio of her following medications including Zoloft and risperidone, Megace, Provigil. Encouraged her to eat at lunchtime today and to engage in hughes milieu activities but states she has difficult time focusing and concentrating. I did encourage her to go anyways to be around other people and see how they handle coping skills except 01/20/2019 discussed with patient that changing from Zoloft to Effexor may be a better bet benefit. She'll be increased to 75 mg by mouth daily at bedtime. Continue Risperdal for agitated psychosis. We'll discontinue Provigil to lack of activation and switch to methylphenidate 10 mg after breakfast. She has minimal skills to take care of herself and will order an MRI for his think she has cortical and temporoparietal atrophy. 01/21/2019: Patient unwilling to sign for MRI and will assume that she has dementia. Will add 5 mg Aricept to bedtime and maintain all other medications as written. She will be followed on 15 minute checks usual protocol for the unit. Supportive care 01/22/2019: patient is still not motivated and non responding to current medications. 15 minute checks. Increase ritalin to 20 mg po qam and add namenda 5 mg po qhs. 01/23/2019: This 68-year-old female has little motivation and appears to start responding to current regimen of medications. 15 minute checks for the maintained. She did have the addition of Namenda last night and increase of Ritalin today. We'll follow and observe today for any medication adjustments needed. 01/24/2019: This is 68-year-old female has little motivation appears to start responded current regimen of medications. Will increase Ritalin to twice a day 20 mg and continue Aricept and Namenda along with Effexor. 01/25/2019: This 68-year-old female has little motivation appears to be childlike in nature. We'll increase her Effexor to 225 mg XR and encourage her to get out of bed and participate. I will try to engage the nursing staff to assist in getting up but due to hughes milieu may be difficult at the present time. 01/26/2019. As discussed above the 68-year-old female has more motivation today and still appears to be childlike in nature. Her medications remain as outlined in the chart. Effexor for mood, Aricept and Namenda for early neurocognitive disorder mild, Risperdal 0.25 mg twice a day for mild psychosis, Megace 80 mg 4 times a day for appetite. Anticipate discharge within the next couple days to get house. 01/27/2019: No change in medications today. She'll remain on the online medications Effexor 70 Namenda Risperdal Megace and Ritalin. She'll remain on 15 minute checks as usual. Possible discharge on Thursday01/28/2019: Appetite is increased so we'll maintain the Megace 80 mg 4 times a day she remains on her rest of her medications Effexor Namenda Risperdal Megace. 15 minute checks as usual. Looking at possible AFC home on Thursday01/31/2019: On 01/28/[address] alcala an insurance company and he stated I should raise the Effexor to 300 mg which I did on 01/28/2019. She still remains hopeless helpless and overwhelmed. Looking at possible AFC placement this week as soon as one is available and still arguing maximum amount of assistance to this woman and continues to be on Effexor Namenda Risperdal Megace and Ritalin. 02/01/2019: The grams of Effexor XR appears to have assisted that she is slow to resolve her depressive symptoms which include hopeless helpless and overwhelmed and suicidal ideation by overdose. Those thoughts are decreasing every day as she expected other peers. Time with Patient: Less than 30
[2019-02-01] MEDS: DONEPEZIL 5 MG TAB PO SCH (21:06)
[2019-02-01] MEDS: PRAMIPEXOLE 0.5 MG TAB PO SCH (21:06)
[2019-02-01] MEDS: MEMANTINE 5 MG TAB PO SCH (21:06)
[2019-02-02] MEDS: METHYLPHENIDATE HCL 10 MG TAB PO SCH ×2 (08:56→17:16)
[2019-02-02] MEDS: PANTOPRAZOLE 40 MG TABLET PO SCH (08:56)
[2019-02-02] MEDS: CLOTRIMAZOLE 1% CREAM 15 GM TUBE TOPICAL SCH ×2 (08:56→20:48)
[2019-02-02] MEDS: risperiDONE 0.25 MG TAB PO SCH ×2 (08:57→20:11)
[2019-02-02] MEDS: MEGESTROL 40 MG TAB PO SCH ×4 (08:57→20:12)
[2019-02-02] MEDS: VENLAFAXINE HCL ER 75 MG CAP PO SCH (08:57)
[2019-02-02] MEDS: clonazePAM 0.5 MG TAB PO SCH ×2 (09:02→20:12)
--- NOTE | 2019-02-02 12:49 | P.PN ---
Subjective Progress Note Date: 02/02/19 Principal diagnosis: Depressive disorder severe with underlying eating disorder Chart reviewed patient discussed in team this morning discussed with nursing staff. Interviewed the patient who was severely depressed 10 out of 10, 10 on 10 anxiety fearful anxious paranoid and stated she had ECT 10 years ago. She stated that was all call her and ruined her memory. She stated that most of the [facility] isolated and is doing the same on the unit here. 01/18/2019: Chart reviewed, patient discussed with nursing staff in detail, discussed in team regarding her depression poor appetite and poor participation and no motivation. She stated the last time she had ECT around her memory and does not want to try that again. She is depressed hopeless helpless overwhelmed night eating poor sleep body aches. 01/19/2019: Chart reviewed, discussed in detail with nursing staff, discussed in team meeting regarding her depression, poor appetite, poor concentration, and little to no motivation. She again feels hopeless helpless overwhelmed depressed and feels like she has no room in her stomach for food but attempts to eat. She complains of stomach ache. She states she is able to sleep at night. 01/20/2019: Chart reviewed and discussed with nursing staff regarding feeding sleeping and caring for herself, discussed in team meeting regarding her de pression poor appetite and poor concentration no motivation and remains hopeless helpless and suicidal. She still complains about stomach and not able to eat much. 01/21/2019: Chart reviewed and discussed with nursing staff, discussed with social work and recent discussion with daughter. She continues to be depressed poor appetite and poor communication no motivation and suicidal 01/22/2019: chart reviewed and discussed with nursing staff. She makes poor eye contact and poor communication expressing depression and anxiety 01/23/2019: Chart reviewed and discussed with nursing staff as well as walk patient out of my office. She is awake talks softly has no major complaints except her feet are dry she still remains depressed anxious hopeless and overwhelmed. She is did eat some breakfast this morning. 01/24/2019: Chart reviewed, discussed with nursing staff, discussed with social media director who states that the insurance company would like he got to talk to discuss why she is not improving and discussed in detail with the patient today who was able to respond in a meaningful way. She was able to tell me she dropped out of high school in ninth grade and help raise her brothers and sisters from her mother who is apart sleep and had many men in her life. She is been and has 2 children herself. She's had mental illness most of her life she states. She has been able to eat and able to communicate better since increasing her medications. She is not highly motivated to get out of bed since she feels shy around other people. 01/25/2019 chart reviewed and discussed with insurance medical center manager regarding her care and discussed with team today regarding the need to keep this woman up and out of bed so she is sleeps at nighttime not during the daytime. She denies homicidal ideation still remains with mild suicidal ideation but appears to be getting better. She has multiple subsequent somatic complaints including her stomach ache and feeling tired and fatigued. 01/26/2019: Chart reviewed and discussed with team regarding what the medical center manager had told me which is obviously different I talked to him social workers of the head that recall the insurance company. She is not suicidal today nor homicidal. She is able to get out of bed and eat but has multiple somatic complaints. She denies any depression or anxiety with the current medication regime and should be continued. She denies any auditory or visual hallucinations. 01/27/2019 chart reviewed and teamed this morning. Looks like that the patient is up and around and doing better today. She still gets lost at times. She'll have to go to [facility] home before she returns home. She is not eating. She has not expressed suicidal homicidal ideation. 01/28/2019 chart reviewed discussion and team about placement and AFC home is still in process she is eating more now. She tries to participate. She denies homicidal suicidal ideation 01/31/2019: Call this weekend indicates she still feels hopeless helpless and overwhelmed with the increase of Effexor to 300 mg by mouth daily at bedtime. She still has little motivation and difficulty functioning independently and does not go to groups because she feels she does not know any answers to the questions when it's a reflection group. She has difficulty sleeping at night poor concentration and low self-esteem 02/01/2019: She continues to feel hopeless helpless and overwhelmed. She was placed in 300 mg of Effexor XR and seems to be responding. She has difficult time integrating with other people and tends to isolate. She does talk about she has suicidal ideation and will take other pills if she went home. 02/01/2019: Chart reviewed, discussed with nursing staff and social work, and discussed disposition and discharge planning. Patient was interviewed in her room from she had returned after lunch and went back to bed. She denies any suicidal homicidal ideation at the current time. Her depression is 5 out of 10 and anxiety 5 out of 10. She denies any auditory or visual hallucinations. Objective - Vital Signs Vital signs: Vital Signs Temp 98.8 F 02/02/19 06:27 Pulse 79 02/02/19 06:27 Resp 16 02/02/19 06:27 BP 100/58 02/02/19 06:27 Pulse Ox 95 01/21/19 06:50 - Labs CBC & Chem 7: 01/15/19 16:30 01/29/19 14:31 Labs: Microbiology - Last 24 Hours (Table) 01/31/19 22:42 Urine Culture - Preliminary Urine,Clean Catch Assessment and Plan Assessment: IDENTIFYING DATA: 68-year-old female patient HPI: Patient is admitted to the inpatient psychiatric unit on an involuntary basis. Petition was done by registered nurse verbalizing "not eating, not sleeping, not caring for her ADLs, not allowing family or [facility] to help her." Patient states that she called the ambulance because she was not eating. Says she's just been eating cottage cheese and peaches for 1 month's time. She has lost weight but does not know how much. She does state that she had some mashed potatoes and meatloaf today but she felt full. She is not sleeping well. She does at home she has not been taking her medications as prescribed. She admits to depression every day. She admits to anxiety says she used to get panic attacks. No recent hallucinations. She says she has not been hungry. She verbalizes that her memory is terrible. She says she thinks that she has Alzheimer's. She says she probably hasn't been not taking her medications because she is scared to take anything. She reports she's not been going to her treatment at [facility] and she doesn't know why. PAST PSYCHIATRIC HISTORY: Patient has recently been in treatment with [facility] but has not been going to her appointments it sounds and relays that she doesn't know why. Most recent psychotropic medications appear to be Lithobid 600 M at bedtime Luvox and 100 mgrams twice a day Zyprexa 5 mg at bedtime. She doesn't remember being on Luvox, doesn't remember if it helped. She does remember Zyprexa. she does seem to remember lithium. She feels like her medication probably was not working for her. She does not years ago she had shock treatments. She does see a counselor at [facility] and sees Dr. Snyder for her medications. She denies any history of bipolar disorder. She has had psychiatric hospitalization a few times when she was 23 years old. Denies any history of suicide attempts. PMH: "I don't think so." Per chart history she is on Glucophage, potassium chloride, Synthroid, Lasix, calcium vitamin D, Lipitor, atenolol. ALLERGIES: Travist D MEDICATIONS: Tylenol when necessary, Maalox when necessary, Ativan when necessary, milk of magnesia when necessary, Zofran when necessary, Protonix CHEMICAL DEPENDENCY HISTORY: Patient denies FAMILY PSYCHIATRIC HISTORY: Denies FAMILY CHEMICAL DEPENDENCY HISTORY: None known at this time. SOCIAL HISTORY: She currently lives by herself. She says she does not have a guardian. She's been once and . She has 2 children. She does not currently work. She is on [employer]. MENTAL STATUS EXAM: She is alert and cooperative with the interview. Her affect overall is restricted. Her mood is described as "fed up." She denies any current thoughts of harm to self or others. She denies any auditory or visual hallucinations. She is not oriented to place. She is oriented to city and month. She is not oriented to date or year stating that it's "09." She is oriented to day of week. She does not show any agitation. Her insight is limited, judgment shows evidence of recent impairment. 01/18/2019: This is a 68-year-old female who is cooperative with interview but is lying in breath after eating breakfast at 11:30 in the morning. She remains with little to no appetite, depressed, anxious and has a fear of eating food. She sleeps but states she is not rested. She remains anxious. She would rather at this point. 01/19/2019: This is 68-year-old female with flat affect and walks slowly to the interview room. She ate a small amount how pancakes this morning and felt full. She remains with flat facies small shuffling gait and severely depressed with almost a fear of eating. She remains less anxious and will de crease her Klonopin today. 01/20/2019: This is a 68-year-old female who still remains with flat affect walks very slowly to the interview room with a very unsteady gait. She continues to eat small amount of food. She remains severely depressed and well adjust her medications accordingly. She remains suicidal in nature. Depression 8 out of 10, anxiety 8 out of 10. 01/21/2019: This is a 68-year-old female who was lying in bed is still remains with a flat affect and has been isolative into her room. She remains depressed and suicidal. She remains anxious requiring frequent medication 01/24/2019: This 68-year-old female was able to communicate today for the first time and has a reactive affect. She has less anxiety and less depression today 01/25/2019; this is 68-year-old female was able to communicate today and stated she has a stomachache and that she does not sleep at night. She states that she is less depressed today than yesterday using a scale of 10 she is 2 out of 10 and has no anxiety. 01/26/2019: This is 68-year-old female was able to communicate better today and said she had a stomachache as usual. I asked her to get up and move and she was able to get dressed and was ambulating on the unit. She still rem ains a little confused and will continue her Aricept and Namenda as well as her Effexor and methylphenidate. She is at the point where she be transitioned to an [facility] home like [facility] to get more stable before she goes back to home. 01/27/2019: This 68-year-old female is able to communicate today and able to go to breakfast and sporadically going to groups. She does not appear agitated but does still be a little confused. We'll continue with Aricept and Namenda Effexor and methylphenidate. 15 minute checks will be observed and working milieu safety adhere to. 01/31/2019: This 68-year-old female who isolates herself and her room has, now for breakfast lunch and dinner and taking her medications. However with the increase of Effexor to 300 mg by mouth daily at bedtime have not noticed a great deal of difference in her depression and isolation. Will continue to evaluate and treat for continued depression. 02/01/2019: This 68-year-old female who tends to isolate herself in her room but has been able to come to 3 meals a day and occasional group. She continues to have thoughts of suicide by taking all of her medications when she gets home. 02/02/2019 68 female who tends to isolate but is able to go to reckless lunch and dinner now. She denies any thoughts of suicide today and states his depression as 5 out of 1 0 as well as anxiety. (1) Major depressive disorder, recurrent, severe with psychotic features Current Visit: Yes Status: Acute Code(s): F33.3 - MAJOR DEPRESSV DISORDER, RECURRENT, SEVERE W PSYCH SYMPTOMS SNOMED Code(s): 42705522 (2) Major depressive disorder, recurrent, severe with psychotic features Current Visit: Yes Status: Acute Priority: High Code(s): F33.3 - MAJOR DEPRESSV DISORDER, RECURRENT, SEVERE W PSYCH SYMPTOMS SNOMED Code(s): 35725589 Plan: PLAN: Patient will be admitted to the inpatient psychiatric unit [facility] on a involuntary basis. Second clinical cert is done based on the patient's depression and lack of care for self, has also been not following up with outpatient treatment. At this time we'll stop Lexapro to help with depression and anxiety we'll monitor her tolerability and consider further titration as needed. We will try to attempt to receive outpatient records from [facility] with medication history. We'll check a lithium level she was recently on lithium multiple seems to have been noncompliant recently. We will look into support systems. Medical consultation will be ordered and Baseline laboratory workup be done the patient. Ativan when necessary as ordered for anxiety. Will add Zoloft 25 mg at bedtime plus Mirapex 0.5 mg by mouth daily at bedtime for restless leg. She also be placed on Risperdal 0.25 mg twice a day. She has a great done of anxiety and will switch from Ativan to clonazepam 01/18/2019: Discussed with patient increase of Zoloft 50 mg by mouth daily at bedtime for depression and anxiety, continue Klonopin until I can get that he titration of Zoloft at least to 75 mg 100, Risperdal 0.25 mg remains at twice a day, will add Megace 40 mg 4 times a day for appetite increase and will use Provigil for focusing concentration and motivation during the daytime which will aid in her being able to get to sleep better at night. The goal is not have her seat during the day decrease depression and decrease anxiety and participate in hughes milieu therapeutic environment. 01/19/2019: Discussed in detail with patient regarding the benefit risk ratio of her following medications including Zoloft and risperidone, Megace, Provigil. Encouraged her to eat at lunchtime today and to engage in hughes milieu activities but states she has difficult time focusing and concentrating. I did encourage her to go anyways to be around other people and see how they handle coping skills except 01/20/2019 discussed with patient that changing from Zoloft to Effexor may be a better bet benefit. She'll be increased to 75 mg by mouth daily at bedtime. Continue Risperdal for agitated psychosis. We'll discontinue Provigil to lack of activation and switch to methylphenidate 10 mg after breakfast. She has minimal skills to take care of herself and will order an MRI for his think she has cortical and temporoparietal atrophy. 01/21/2019: Patient unwilling to sign for MRI and will assume that she has dementia. Will add 5 mg Aricept to bedtime and maintain all other medications as written. She will be followed on 15 minute checks usual protocol for the unit. Supportive care 01/22/2019: patient is still not motivated and non responding to current medications. 15 minute checks. Increase ritalin to 20 mg po qam and add namenda 5 mg po qhs. 01/23/2019: This 68-year-old female has little motivation and appears to start responding to current regimen of medications. 15 minute checks for the maintained. She did have the addition of Namenda last night and increase of Ritalin today. We'll follow and observe today for any medication adjustments needed. 01/24/2019: This is 68-year-old female has little motivation appears to start responded current regimen of medications. Will increase Ritalin to twice a day 20 mg and continue Aricept and Namenda along with Effexor. 01/25/2019: This 68-year-old female has little motivation appears to be childlike in nature. We'll increase her Effexor to 225 mg XR and encourage her to get out of bed and participate. I will try to engage the nursing staff to assist in getting up but due to hughes milieu may be difficult at the present time. 01/26/2019. As discussed above the 68-year-old female has more motivation today and still appears to be childlike in nature. Her medications remain as outlined in the chart. Effexor for mood, Aricept and Namenda for early neurocognitive disorder mild, Risperdal 0.25 mg twice a day for mild psychosis, Megace 80 mg 4 times a day for appetite. Anticipate discharge within the next couple days to get house. 01/27/2019: No change in medications today. She'll remain on the online medications Effexor 70 Namenda Risperdal Megace and Ritalin. She'll remain on 15 minute checks as usual. Possible discharge on Thursday01/28/2019: Appetite is increased so we'll maintain the Megace 80 mg 4 times a day she remains on her rest of her medications Effexor Namenda Risperdal Megace. 15 minute checks as usual. Looking at possible [facility]FC home on Thursday01/31/2019: On 01/28/[address] alcala an insurance company and he stated I should raise the Effexor to 300 mg which I did on 01/28/2019. She still remains hopeless helpless and overwhelmed. Looking at possible AFC placement this week as soon as one is available and still arguing maximum amount of assistance to this woman and continues to be on Effexor Namenda Risperdal Megace and Ritalin. 02/01/2019: The Effexor XR appears to have assisted that she is slow to resolve her depressive symptoms which include hopeless helpless and overwhelmed and suicidal ideation by overdose. Those thoughts are decreasing every day as she expected other peers. 02/02/2019: Patient has on 15 minute checks will be maintained on on this until she leaves. Currently the combination of medicines including Effexor Namenda Risperdal Megace and Ritalin and stabilize patient. Time with Patient: Less than 30
[2019-02-02] MEDS: DONEPEZIL 5 MG TAB PO SCH (20:11)
[2019-02-02] MEDS: PRAMIPEXOLE 0.5 MG TAB PO SCH (20:12)
[2019-02-02] MEDS: MEMANTINE 5 MG TAB PO SCH (20:12)
[2019-02-03] MEDS: PANTOPRAZOLE 40 MG TABLET PO SCH (08:05)
[2019-02-03] MEDS: METHYLPHENIDATE HCL 10 MG TAB PO SCH ×2 (08:05→17:15)
[2019-02-03] MEDS: risperiDONE 0.25 MG TAB PO SCH (08:05)
[2019-02-03] MEDS: MEGESTROL 40 MG TAB PO SCH ×4 (08:05→21:07)
[2019-02-03] MEDS: clonazePAM 0.5 MG TAB PO SCH ×2 (08:05→20:19)
[2019-02-03] MEDS: VENLAFAXINE HCL ER 75 MG CAP PO SCH (08:06)
--- NOTE | 2019-02-03 11:31 | P.PN ---
Subjective Progress Note Date: 02/03/19 Principal diagnosis: Depressive disorder severe with underlying eating disorder Chart reviewed patient discussed in team this morning discussed with nursing staff. Interviewed the patient who was severely depressed 10 out of 10, 10 on 10 anxiety fearful anxious paranoid and stated she had ECT 10 years ago. She stated that was all call her and ruined her memory. She stated that most of the [facility] isolated and is doing the same on the unit here. 01/18/2019: Chart reviewed, patient discussed with nursing staff in detail, discussed in team regarding her depression poor appetite and poor participation and no motivation. She stated the last time she had ECT around her memory and does not want to try that again. She is depressed hopeless helpless overwhelmed night eating poor sleep body aches. 01/19/2019: Chart reviewed, discussed in detail with nursing staff, discussed in team meeting regarding her depression, poor appetite, poor concentration, and little to no motivation. She again feels hopeless helpless overwhelmed depressed and feels like she has no room in her stomach for food but attempts to eat. She complains of stomach ache. She states she is able to sleep at night. 01/20/2019: Chart reviewed and discussed with nursing staff regarding feeding sleeping and caring for herself, discussed in team meeting regarding her de pression poor appetite and poor concentration no motivation and remains hopeless helpless and suicidal. She still complains about stomach and not able to eat much. 01/21/2019: Chart reviewed and discussed with nursing staff, discussed with social work and recent discussion with daughter. She continues to be depressed poor appetite and poor communication no motivation and suicidal 01/22/2019: chart reviewed and discussed with nursing staff. She makes poor eye contact and poor communication expressing depression and anxiety 01/23/2019: Chart reviewed and discussed with nursing staff as well as walk patient out of my office. She is awake talks softly has no major complaints except her feet are dry she still remains depressed anxious hopeless and overwhelmed. She is did eat some breakfast this morning. 01/24/2019: Chart reviewed, discussed with nursing staff, discussed with health social work professor who states that the insurance company would like he got to talk to discuss why she is not improving and discussed in detail with the patient today who was able to respond in a meaningful way. She was able to tell me she dropped out of high school in ninth grade and help raise her brothers and sisters from her mother who is apart sleep and had many men in her life. She is been and has 2 children herself. She's had mental illness most of her life she states. She has been able to eat and able to communicate better since increasing her medications. She is not highly motivated to get out of bed since she feels shy around other people. 01/25/2019 chart reviewed and discussed with insurance emergency medical services coordinator regarding her care and discussed with team today regarding the need to keep this woman up and out of bed so she is sleeps at nighttime not during the daytime. She denies homicidal ideation still remains with mild suicidal ideation but appears to be getting better. She has multiple subsequent somatic complaints including her stomach ache and feeling tired and fatigued. 01/26/2019: Chart reviewed and discussed with team regarding what the emergency medical services coordinator had told me which is obviously different I talked to him social workers of the head that recall the insurance company. She is not suicidal today nor homicidal. She is able to get out of bed and eat but has multiple somatic complaints. She denies any depression or anxiety with the current medication regime and should be continued. She denies any auditory or visual hallucinations. 01/27/2019 chart reviewed and teamed this morning. Looks like that the patient is up and around and doing better today. She still gets lost at times. She'll have to go to [facility] home before she returns home. She is not eating. She has not expressed suicidal homicidal ideation. 01/28/2019 chart reviewed discussion and team about placement and [facility] home is still in process she is eating more now. She tries to participate. She denies homicidal suicidal ideation 01/31/2019: Call this weekend indicates she still feels hopeless helpless and overwhelmed with the increase of Effexor to 300 mg by mouth daily at bedtime. She still has little motivation and difficulty functioning independently and does not go to groups because she feels she does not know any answers to the questions when it's a reflection group. She has difficulty sleeping at night poor concentration and low self-esteem 02/01/2019: She continues to feel hopeless helpless and overwhelmed. She was placed in 300 mg of Effexor XR and seems to be responding. She has difficult time integrating with other people and tends to isolate. She does talk about she has suicidal ideation and will take other pills if she went home. 02/02/2019: Chart reviewed, discussed with nursing staff and social work, and discussed disposition and discharge planning. Patient was interviewed in her room from she had returned after lunch and went back to bed. She denies any suicidal homicidal ideation at the current time. Her depression is 5 out of 10 and anxiety 5 out of 10. She denies any auditory or visual hallucinations. 02/03/2019: Chart reviewed, discussed with nursing staff and social work, discussed disposition and discharge her being held up by the patient's ability being able to function on her own and arranging for if she patient was intervi ewed in her room and should return from breakfast and was awake today. She denies any suicidal or homicidal ideation present. Her depression is 4 out of 10 and anxiety as 4 out of 10. She denies any auditory or visual hallucinations. Objective - Vital Signs Vital signs: Vital Signs Temp 98.5 F 02/03/19 08:09 Pulse 74 02/03/19 06:42 Resp 14 02/03/19 06:42 BP 111/53 02/03/19 06:42 Pulse Ox 95 01/21/19 06:50 - Labs CBC & Chem 7: 01/15/19 16:30 01/29/19 14:31 Labs: Microbiology - Last 24 Hours (Table) 01/31/19 22:42 Urine Culture - Final Urine,Clean Catch Assessment and Plan Assessment: IDENTIFYING DATA: 68-year-old female patient HPI: Patient is admitted to the inpatient psychiatric unit on an involuntary basis. Petition was done by registered nurse verbalizing "not eating, not sleeping, not caring for her ADLs, not allowing family or [facility] to help her." Patient states that she called the ambulance because she was not eating. Says she's just been eating cottage cheese and peaches for 1 month's time. She has lost weight but does not know how much. She does state that she had some mashed potatoes and meatloaf today but she felt full. She is not sleeping well. She does at home she has not been taking her medications as prescribed. She admits to depression every day. She admits to anxiety says she used to get panic attacks. No recent hallucinations. She says she has not been hungry. She verbalizes that her memory is terrible. She says she thinks that she has Alzheimer's. She says she probably hasn't been not taking her medications because she is scared to take anything. She reports she's not been going to her treatment at [facility] and she doesn't know why. PAST PSYCHIATRIC HISTORY: Patient has recently been in treatment with [facility] but has not been going to her appointments it sounds and relays that she doesn't know why. Most recent psychotropic medications appear to be Lithobid 600 M at bedtime Luvox and 100 mgrams twice a day Zyprexa 5 mg at bedtime. She doesn't remember being on Luvox, doesn't remember if it helped. She does remember Zyprexa. she does seem to remember lithium. She feels like her medication probably was not working for her. She does not years ago she had shock treatments. She does see a counselor at [facility] and sees Dr. Snyder for her medications. She denies any history of bipolar disorder. She has had psychiatric hospitalization a few times when she was 23 years old. Denies any history of suicide attempts. PMH: "I don't think so." Per chart history she is on Glucophage, potassium chloride, Synthroid, Lasix, calcium vitamin D, Lipitor, atenolol. ALLERGIES: Travist D MEDICATIONS: Tylenol when necessary, Maalox when necessary, Ativan when necessary, milk of magnesia when necessary, Zofran when necessary, Protonix CHEMICAL DEPENDENCY HISTORY: Patient denies FAMILY PSYCHIATRIC HISTORY: Denies FAMILY CHEMICAL DEPENDENCY HISTORY: None known at this time. SOCIAL HISTORY: She currently lives by herself. She says she does not have a guardian. She's been once and . She has 2 children. She does not currently work. She is on [employer]. MENTAL STATUS EXAM: She is alert and cooperative with the interview. Her affect overall is restricted. Her mood is described as "fed up." She denies any current thoughts of harm to self or others. She denies any auditory or visual hallucinations. She is not oriented to place. She is oriented to city and month. She is not oriented to date or year stating that it's "09." She is oriented to day of week. She does not show any agitation. Her insight is limited, judgment shows evidence of recent impairment. 01/18/2019: This is a 68-year-old female who is cooperative with interview but is lying in breath after eating breakfast at 11:30 in the morning. She remains with little to no appetite, depressed, anxious and has a fear of eating food. She sleeps but states she is not rested. She remains anxious. She would rather at this point. 01/19/2019: This is 68-year-old female with flat affect and walks slowly to the interview room. She ate a small amount how pancakes this morning and felt full. She remains with flat facies small shuffling gait and severely depressed with almost a fear of eating. She remains less anxious and will decrease her Klonopin today. 01/20/2019: This is a 68-year-old female who still remains with flat affect walks very slowly to the interview room with a very unsteady gait. She continues to eat small amount of food. She remains severely depressed and well adjust her medications accordingly. She remains suicidal in nature. Depression 8 out of 10, anxiety 8 out of 10. 01/21/2019: This is a 68-year-old female who was lying in bed is still remains with a flat affect and has been isolative into her room. She remains depressed and suicidal. She remains anxious requiring frequent medication 01/24/2019: This 68-year-old female was able to communicate today for the first time and has a reactive affect. She has less anxiety and less depression today 01/25/2019; this is 68-year-old female was able to communicate today and stated she has a stomachache and that she does not sleep at night. She states that she is less depressed today than yesterday using a scale of 10 she is 2 out of 10 and has no anxiety. 01/26/2019: This is 68-year-old female was able to communicate better today and said she had a stomachache as usual. I asked her to get up and move and she was able to get dressed and was ambulating on the unit. She still remains a little confused and will continue her Aricept and Namenda as well as her Effexor and methylphenidate. She is at the point where she be transitioned to an [facility] home like [facility] to get more stable before she goes back to home. 01/27/2019: This 68-year-old female is able to communicate today and able to go to breakfast and sporadically going to groups. She does not appear agitated but does still be a little confused. We'll continue with Aricept and Namenda Effexor and methylphenidate. 15 minute checks will be observed and working milieu safety adhere to. 01/31/2019: This 68-year-old female who isolates herself and her room has, now for breakfast lunch and dinner and taking her medications. However with the increase of Effexor to 300 mg by mouth daily at bedtime have not noticed a great deal of difference in her depression and isolation. Will continue to evaluate and treat for continued depression. 02/01/2019: This 68-year-old female who tends to isolate herself in her room but has been able to come to 3 meals a day and occasional group. She continues to have thoughts of suicide by taking all of her medications when she gets home. 02/02/2019 68 female who tends to isolate but is able to go to reckless lunch and dinner now. She denies any thoughts of suicide today and states his depression as 5 out of 10 as well as anxiety. 02/03/2019: This 68-year-old female to be able to come out later breakfast lunch and dinner. She is attending some groups and interacting with [facility]. At this point she would be a risk if she went home without having stepdown care. (1) Major depressive disorder, recurrent, severe with psychotic features Current Visit: Yes Status: Acute Priority: Medium Code(s): F33.3 - MAJOR DEPRESSV DISORDER, RECURRENT, SEVERE W PSYCH SYMPTOMS SNOMED Code(s): 67267241 (2) Major depressive disorder, recurrent, severe with psychotic features Current Visit: Yes Status: Acute Priority: Medium Code(s): F33.3 - MAJOR DEPRESSV DISORDER, RECURRENT, SEVERE W PSYCH SYMPTOMS SNOMED Code(s): 38673635
[2019-02-03] MEDS: PRAMIPEXOLE 0.5 MG TAB PO SCH (20:20)
[2019-02-03] MEDS: DONEPEZIL 10 MG TAB PO SCH (20:20)
[2019-02-03] MEDS: risperiDONE 0.5 MG TAB PO SCH (20:20)
[2019-02-04] MEDS: PANTOPRAZOLE 40 MG TABLET PO SCH (08:11)
[2019-02-04] MEDS: VENLAFAXINE HCL ER 75 MG CAP PO SCH (08:11)
[2019-02-04] MEDS: METHYLPHENIDATE HCL 10 MG TAB PO SCH ×2 (08:11→16:39)
[2019-02-04] MEDS: MEGESTROL 40 MG TAB PO SCH ×4 (08:12→21:49)
[2019-02-04] MEDS: MEMANTINE 10 MG TAB PO SCH (08:12)
[2019-02-04] MEDS: risperiDONE 0.5 MG TAB PO SCH ×2 (08:13→20:52)
[2019-02-04] MEDS: clonazePAM 0.5 MG TAB PO SCH ×2 (08:22→20:51)
--- NOTE | 2019-02-04 11:45 | P.PN ---
Subjective Progress Note Date: 02/04/19 Principal diagnosis: Depressive disorder severe with underlying eating disorder Chart reviewed patient discussed in team this morning discussed with nursing staff. Interviewed the patient who was severely depressed 10 out of 10, 10 on 10 anxiety fearful anxious paranoid and stated she had ECT 10 years ago. She stated that was all call her and ruined her memory. She stated that most of the [facility] isolated and is doing the same on the unit here. 01/18/2019: Chart reviewed, patient discussed with nursing staff in detail, discussed in team regarding her depression poor appetite and poor participation and no motivation. She stated the last time she had ECT around her memory and does not want to try that again. She is depressed hopeless helpless overwhelmed night eating poor sleep body aches. 01/19/2019: Chart reviewed, discussed in detail with nursing staff, discussed in team meeting regarding her depression, poor appetite, poor concentration, and little to no motivation. She again feels hopeless helpless overwhelmed depressed and feels like she has no room in her stomach for food but attempts to eat. She complains of stomach ache. She states she is able to sleep at night. 01/20/2019: Chart reviewed and discussed with nursing staff regarding feeding sleeping and caring for herself, discussed in team meeting regarding her de pression poor appetite and poor concentration no motivation and remains hopeless helpless and suicidal. She still complains about stomach and not able to eat much. 01/21/2019: Chart reviewed and discussed with nursing staff, discussed with social work and recent discussion with daughter. She continues to be depressed poor appetite and poor communication no motivation and suicidal 01/22/2019: chart reviewed and discussed with nursing staff. She makes poor eye contact and poor communication expressing depression and anxiety 01/23/2019: Chart reviewed and discussed with nursing staff as well as walk patient out of my office. She is awake talks softly has no major complaints except her feet are dry she still remains depressed anxious hopeless and overwhelmed. She is did eat some breakfast this morning. 01/24/2019: Chart reviewed, discussed with nursing staff, discussed with social services coordinator who states that the insurance company would like he got to talk to discuss why she is not improving and discussed in detail with the patient today who was able to respond in a meaningful way. She was able to tell me she dropped out of high school in ninth grade and help raise her brothers and sisters from her mother who is apart sleep and had many men in her life. She is been and has 2 children herself. She's had mental illness most of her life she states. She has been able to eat and able to communicate better since increasing her medications. She is not highly motivated to get out of bed since she feels shy around other people. 01/25/2019 chart reviewed and discussed with insurance medical radiation therapist regarding her care and discussed with team today regarding the need to keep this woman up and out of bed so she is sleeps at nighttime not during the daytime. She denies homicidal ideation still remains with mild suicidal ideation but appears to be getting better. She has multiple subsequent somatic complaints including her stomach ache and feeling tired and fatigued. 01/26/2019: Chart reviewed and discussed with team regarding what the medical radiation therapist had told me which is obviously different I talked to him social workers of the head that recall the insurance company. She is not suicidal today nor homicidal. She is able to get out of bed and eat but has multiple somatic complaints. She denies any depression or anxiety with the current medication regime and should be continued. She denies any auditory or visual hallucinations. 01/27/2019 chart reviewed and teamed this morning. Looks like that the patient is up and around and doing better today. She still gets lost at times. She'll have to go to AF home before she returns home. She is not eating. She has not expressed suicidal homicidal ideation. 01/28/2019 chart reviewed discussion and team about placement and AFC home is still in process she is eating more now. She tries to participate. She denies homicidal suicidal ideation 01/31/2019: Call this weekend indicates she still feels hopeless helpless and overwhelmed with the increase of Effexor to 300 mg by mouth daily at bedtime. She still has little motivation and difficulty functioning independently and does not go to groups because she feels she does not know any answers to the questions when it's a reflection group. She has difficulty sleeping at night poor concentration and low self-esteem 02/01/2019: She continues to feel hopeless helpless and overwhelmed. She was placed in 300 mg of Effexor XR and seems to be responding. She has difficult time integrating with other people and tends to isolate. She does talk about she has suicidal ideation and will take other pills if she went home. 02/02/2019: Chart reviewed, discussed with nursing staff and social work, and discussed disposition and discharge planning. Patient was interviewed in her room from she had returned after lunch and went back to bed. She denies any suicidal homicidal ideation at the current time. Her depression is 5 out of 10 and anxiety 5 out of 10. She denies any auditory or visual hallucinations. 02/03/2019: Chart reviewed, discussed with nursing staff and social work, discussed disposition and discharge her being held up by the patient's ability being able to function on her own and arranging for if she patient was intervi ewed in her room and should return from breakfast and was awake today. She denies any suicidal or homicidal ideation present. Her depression is 4 out of 10 and anxiety as 4 out of 10. She denies any auditory or visual hallucinations. 02/04/2019: Chart reviewed, discussed with nursing staff and social work regarding disposition and discharge. It appears that she tends to isolate and is slow verbally and cognitively. She would like more Ativan which I discussed with her is not appropriate. She is on adequate Effexor 300 mg XR Objective - Vital Signs Vital signs: Vital Signs Temp 99.3 F 02/04/19 06:04 Pulse 74 02/03/19 06:42 Resp 15 02/04/19 06:04 BP 126/56 02/04/19 06:04 Pulse Ox 95 01/21/19 06:50 - Labs CBC & Chem 7: 01/15/19 16:30 01/29/19 14:31 Assessment and Plan Assessment: IDENTIFYING DATA: 68-year-old female patient HPI: Patient is admitted to the inpatient psychiatric unit on an involuntary basis. Petition was done by registered nurse verbalizing "not eating, not sleeping, not caring for her ADLs, not allowing family or H to help her." Patient states that she called the ambulance because she was not eating. Says she's just been eating cottage cheese and peaches for 1 month's time. She has lost weight but does not know how much. She does state that she had some mashed potatoes and meatloaf today but she felt full. She is not sleeping well. She does at home she has not been taking her medications as prescribed. She admits to depression every day. She admits to anxiety says she used to get panic attacks. No recent hallucinations. She says she has not been hungry. She verbalizes that her memory is terrible. She says she thinks that she has Alzheimer's. She says she probably hasn't been not taking her medications because she is scared to take anything. She reports she's not been going to her treatment at [facility] and she doesn't know why. PAST PSYCHIATRIC HISTORY: Patient has recently been in treatment with [facility] but has not been going to her appointments it sounds and relays that she doesn't know why. Most recent psychotropic medications appear to be Lithobid 600 M at bedtime Luvox and 100 mgrams twice a day Zyprexa 5 mg at bedtime. She doesn't remember being on Luvox, doesn't remember if it helped. She does remember Zyprexa. she does seem to remember lithium. She feels like her medication probably was not working for her. She does not years ago she had shock treatments. She does see a counselor at [facility] and sees Dr. Snyder for her medications. She denies any history of bipolar disorder. She has had psychiatric hospitalization a few times when she was 23 years old. Denies any history of suicide attempts. PMH: "I don't think so." Per chart history she is on Glucophage, potassium chloride, Synthroid, Lasix, calcium vitamin D, Lipitor, atenolol. ALLERGIES: Travist D MEDICATIONS: Tylenol when necessary, Maalox when necessary, Ativan when necessary, milk of magnesia when necessary, Zofran when necessary, Protonix CHEMICAL DEPENDENCY HISTORY: Patient denies FAMILY PSYCHIATRIC HISTORY: Denies FAMILY CHEMICAL DEPENDENCY HISTORY: None known at this time. SOCIAL HISTORY: She currently lives by herself. She says she does not have a guardian. She's been once and . She has 2 children. She does not currently work. She is on [employer]. MENTAL STATUS EXAM: She is alert and cooperative with the interview. Her affect overall is restricted. Her mood is described as "fed up." She denies any cur rent thoughts of harm to self or others. She denies any auditory or visual hallucinations. She is not oriented to place. She is oriented to city and month. She is not oriented to date or year stating that it's "09." She is oriented to day of week. She does not show any agitation. Her insight is limited, judgment shows evidence of recent impairment. 01/18/2019: This is a 68-year-old female who is cooperative with interview but is lying in breath after eating breakfast at 11:30 in the morning. She remains with little to no appetite, depressed, anxious and has a fear of eating food. She sleeps but states she is not rested. She remains anxious. She would rather at this point. 01/19/2019: This is 68-year-old female with flat affect and walks slowly to the interview room. She ate a small amount how pancakes this morning and felt full. She remains with flat facies small shuffling gait and severely depressed with almost a fear of eating. She remains less anxious and will decrease her Klonopin today. 01/20/2019: This is a 68-year-old female who still remains with flat affect walks very slowly to the interview room with a very unsteady gait. She continues to eat small amount of food. She remains severely depressed and well adjust her medications accordingly. She remains suicidal in nature. Depression 8 out of 10, anxiety 8 out of 10. 01/21/2019: This is a 68-year-old female who was lying in bed is still remains with a flat affect and has been isolative into her room. She remains depressed and suicidal. She remains anxious requiring frequent medication 01/24/2019: This 68-year-old female was able to communicate today for the first time and has a reactive affect. She has less anxiety and less depression today 01/25/2019; this is 68-year-old female was able to communicate today and stated she has a stomachache and that she does not sleep at night. She states that she is less depressed today than yesterday using a scale of 10 she is 2 out of 10 and has no anxiety. 01/26/2019: This is 68-year-old female was able to communicate better today and said she had a stomachache as usual. I asked her to get up and move and she was able to get dressed and was ambulating on the unit. She still remains a little confused and will continue her Aricept and Namenda as well as her Effexor and methylphenidate. She is at the point where she be transitioned to an [facility] home like [facility] to get more stable before she goes back to home. 01/27/2019: This 68-year-old female is able to communicate today and able to go to breakfast and sporadically going to groups. She does not appear agitated but does still be a little confused. We'll continue with Aricept and Namenda Effexor and methylphenidate. 15 minute checks will be observed and working milieu safety adhere to. 01/31/2019: This 68-year-old female who isolates herself and her room has, now for breakfast lunch and dinner and taking her medications. However with the increase of Effexor to 300 mg by mouth daily at bedtime have not noticed a great deal of difference in her depression and isolation. Will continue to evaluate and treat for continued depression. 02/01/2019: This 68-year-old female who tends to isolate herself in her room but has been able to come to 3 meals a day and occasional group. She continues to have thoughts of suicide by taking all of her medications when she gets home. 02/02/2019 68 female who tends to isolate but is able to go to reckless lunch and dinner now. She denies any thoughts of suicide today and states his depression as 5 out of 10 as well as anxiety. 02/03/2019: This 68-year-old female to be able to come out later breakfast lunch and dinner. She is attending some groups and interacting with [facility] milieu therapeutic environment. At this point she would be a risk if she went home without having stepdown care. 02/04/2019: This 71-year-old female is dressed today hospital gown and has been going to groups. At this point she would be a risk if she went home without having stepdown care due to the fact that she has a hard time focusing and concentrating. (1) Major depressive disorder, recurrent, severe with psychotic features Current Visit: Yes Status: Acute Priority: Medium Code(s): F33.3 - MAJOR DEPRESSV DISORDER, RECURRENT, SEVERE W PSYCH SYMPTOMS SNOMED Code(s): 66890594 (2) Major depressive disorder, recurrent, severe with psychotic features Current Visit: Yes Status: Acute Priority: Medium Code(s): F33.3 - MAJOR DEPRESSV DISORDER, RECURRENT, SEVERE W PSYCH SYMPTOMS SNOMED Code(s): 62548565 Plan: PLAN: Patient will be admitted to the inpatient psychiatric unit [facility] on a involuntary basis. Second clinical cert is done based on the patient's depression and lack of care for self, has also been not following up with outpatient treatment. At this time we'll stop Lexapro to help with depression and anxiety we'll monitor her tolerability and consider further titration as needed. We will try to attempt to receive outpatient records from [facility] with medication history. We'll check a lithium level she was recently on lithium multiple seems to have been noncompliant recently. We will look into support systems. Medical consultation will be ordered and Baseline laboratory workup be done the patient. Ativan when necessary as ordered for anxiety. Will add Zoloft 25 mg at bedtime plus Mirapex 0.5 mg by mouth daily at bedtime for restless leg. She also be placed on Risperdal 0.25 mg twice a day. She has a great done of anxiety and will switch from Ativan to clonazepam 01/18/2019: Discussed with patient increase of Zoloft 50 mg by mouth daily at bedtime for depression and anxiety, continue Klonopin until I can get that he titration of Zoloft at least to 75 mg 100, Risperdal 0.25 mg remains at twice a day, will add Megace 40 mg 4 times a day for appetite increase and will use Provigil for focusing concentration and motivation during the daytime which will aid in her being able to get to sleep better at night. The goal is not have her seat during the day decrease depression and decrease anxiety and participate in [facility] milieu therapeutic environment. 01/19/2019: Discussed in detail with patient regarding the benefit risk ratio of her following medications including Zoloft and risperidone, Megace, Provigil. Encouraged her to eat at lunchtime today and to engage in [facility] milieu activities but states she has difficult time focusing and concentrating. I did encourage her to go anyways to be around other people and see how they handle coping skills except 01/20/2019 discussed with patient that changing from Zoloft to Effexor may be a better bet benefit. She'll be increased to 75 mg by mouth daily at bedtime. Continue Risperdal for agitated psychosis. We'll discontinue Provigil to lack of activation and switch to methylphenidate 10 mg after breakfast. She has minimal skills to take care of herself and will order an MRI for his think she has cortical and temporoparietal atrophy. 01/21/2019: Patient unwilling to sign for MRI and will assume that she has dementia. Will add 5 mg Aricept to bedtime and maintain all other medications as written. She will be followed on 15 minute checks usual protocol for the unit. Supportive care 01/22/2019: patient is still not motivated and non responding to current medications. 15 minute checks. Increase ritalin to 20 mg po qam and add namenda 5 mg po qhs. 01/23/2019: This 68-year-old female has little motivation and appears to start responding to current regimen of medications. 15 minute checks for the maintained. She did have the addition of Namenda last night and increase of Ritalin today. We'll follow and observe today for any medication adjustments needed. 01/24/2019: This is 68-year-old female has little motivation appears to start responded current regimen of medications. Will increase Ritalin to twice a day 20 mg and continue Aricept and Namenda along with Effexor. 01/25/2019: This 68-year-old female has little motivation appears to be childlike in nature. We'll increase her Effexor to 225 mg XR and encourage her to get out of bed and participate. I will try to engage the nursing staff to assist in getting up but due to [facility] milieu may be difficult at the present time. 01/26/2019. As discussed above the 68-year-old female has more motivation today and still appears to be childlike in nature. Her medications remain as outlined in the chart. Effexor for mood, Aricept and Namenda for early neurocognitive disorder mild, Risperdal 0.25 mg twice a day for mild psychosis, Megace 80 mg 4 times a day for appetite. Anticipate discharge within the next couple days to get house. 01/27/2019: No change in medications today. She'll remain on the online medications Effexor 70 Namenda Risperdal Megace and Ritalin. She'll remain on 15 minute checks as usual. Possible discharge on Thursday01/28/2019: Appetite is increased so we'll maintain the Megace 80 mg 4 times a day she remains on her rest of her medications Effexor Namenda Risperdal Megace. 15 minute checks as usual. Looking at possible AFC home on Thursday01/31/2019: On 01/28/[address] alcala an insurance company and he stated I should raise the Effexor to 300 mg which I did on 01/28/2019. She still remains hopeless helpless and overwhelmed. Looking at possible AFC placement this week as soon as one is available and still arguing maximum amount of assistance to this woman and continues to be on Effexor Namenda Risperdal Megace and Ritalin. 02/01/2019: The Effexor XR appears to have assisted that she is slow to resolve her depressive symptoms which include hopeless helpless and overwhelmed and suicidal ideation by overdose. Those thoughts are decreasing every day as she expected other peers. 02/02/2019: Patient has on 15 minute checks will be maintained on on this until she leaves. Currently the combination of medicines including Effexor Namenda Risperdal Megace and Ritalin and stabilize patient. 02/04/2019: Patient remains on 15 minute checks and will be maintained as long she is on this unit. Currently combinations of medications include Effexor 300 mg, Namenda 5 mg twice a day, Risperdal 0.5 mg twice a day Megace 80 mg4 times a day and on Ritalin 20 mg twice a day.placement is still an issue Time with Patient: Less than 30
[2019-02-04] MEDS: PRAMIPEXOLE 0.5 MG TAB PO SCH (20:52)
[2019-02-04] MEDS: DONEPEZIL 10 MG TAB PO SCH (20:52)
[2019-02-05] MEDS: risperiDONE 0.5 MG TAB PO SCH ×2 (09:33→21:16)
[2019-02-05] MEDS: MEGESTROL 40 MG TAB PO SCH ×4 (09:33→21:17)
[2019-02-05] MEDS: clonazePAM 0.5 MG TAB PO SCH ×2 (09:33→21:15)
[2019-02-05] MEDS: VENLAFAXINE HCL ER 75 MG CAP PO SCH (09:33)
[2019-02-05] MEDS: MEMANTINE 10 MG TAB PO SCH (09:34)
[2019-02-05] MEDS: PANTOPRAZOLE 40 MG TABLET PO SCH (09:34)
[2019-02-05] MEDS: METHYLPHENIDATE HCL 10 MG TAB PO SCH ×2 (09:34→17:13)
--- NOTE | 2019-02-05 19:18 | P.PN ---
Subjective Progress Note Date: 02/05/19 Principal diagnosis: Major Depressive Disorder, severe recurrent Found her very depressed and down. Reports some improvement in her mood symptoms. Medication complaint and tolerating them well. Working on her coping skills. Denies hearing any voices or seeing things. Did sleep better last night MSE :AAOx 4. Poo eye contact. Mood depressed. Has no suicidal ideation. No psychoses. Insight and judgement improving Major Depression Will continue to adjust medications accordingly Objective - Vital Signs Vital signs: Vital Signs Temp 98.7 F 02/05/19 02:51 Pulse 97 02/05/19 02:51 Resp 14 02/05/19 02:51 BP 122/59 02/05/19 02:51 Pulse Ox 95 01/21/19 06:50 - Labs CBC & Chem 7: 01/15/19 16:30 01/29/19 14:31
[2019-02-05] MEDS: DONEPEZIL 10 MG TAB PO SCH (21:15)
[2019-02-05] MEDS: PRAMIPEXOLE 0.5 MG TAB PO SCH (21:15)
[2019-02-06] MEDS: clonazePAM 0.5 MG TAB PO SCH ×2 (07:59→20:45)
[2019-02-06] MEDS: METHYLPHENIDATE HCL 10 MG TAB PO SCH ×2 (08:00→16:59)
[2019-02-06] MEDS: MEGESTROL 40 MG TAB PO SCH ×4 (08:00→20:45)
[2019-02-06] MEDS: risperiDONE 0.5 MG TAB PO SCH ×2 (08:01→20:45)
[2019-02-06] MEDS: VENLAFAXINE HCL ER 75 MG CAP PO SCH (08:01)
[2019-02-06] MEDS: PANTOPRAZOLE 40 MG TABLET PO SCH (08:01)
[2019-02-06] MEDS: MEMANTINE 10 MG TAB PO SCH (08:01)
--- NOTE | 2019-02-06 11:51 | P.PN ---
Subjective Progress Note Date: 02/06/19 Principal diagnosis: Major Depressive Disorder, severe recurrent Found her some what better but still depressed and down. Reports some improvement in her mood symptoms. Medication complaint and tolerating them well. Working on her coping skills. Denies hearing any voices or seeing things. Did sleep better last night MSE :AAOx 4. Poo eye contact. Mood depressed. Has no suicidal ideation. No psychoses. Insight and judgement improving Major Depression Will continue to adjust medications accordingly Objective - Vital Signs Vital signs: Vital Signs Temp 98.8 F 02/06/19 06:26 Pulse 117 H 02/06/19 08:15 Resp 20 02/06/19 08:15 BP 120/66 02/06/19 08:15 Pulse Ox 95 01/21/19 06:50 Intake & Output 02/05/19 02/06/19 02/06/19 18:59 06:59 18:59 Weight 78.942 kg - Labs CBC & Chem 7: 01/15/19 16:30 01/29/19 14:31
[2019-02-06] MEDS: PRAMIPEXOLE 0.5 MG TAB PO SCH (20:45)
[2019-02-06] MEDS: DONEPEZIL 10 MG TAB PO SCH (20:45)
[2019-02-07 06:47] VITALS: BP 104/52; PULSE 84; RESP 16; TEMP 98.9
[2019-02-07] MEDS: PANTOPRAZOLE 40 MG TABLET PO SCH (07:59)
[2019-02-07] MEDS: MEGESTROL 40 MG TAB PO SCH ×2 (08:00→12:55)
[2019-02-07] MEDS: MEMANTINE 10 MG TAB PO SCH (08:00)
[2019-02-07] MEDS: VENLAFAXINE HCL ER 75 MG CAP PO SCH (08:00)
[2019-02-07] MEDS: risperiDONE 0.5 MG TAB PO SCH (08:00)
[2019-02-07] MEDS: METHYLPHENIDATE HCL 10 MG TAB PO SCH (08:01)
[2019-02-07] MEDS: clonazePAM 0.5 MG TAB PO SCH (08:02)
--- NOTE | 2019-02-07 11:53 | P.DS ---
Providers Date of admission: 01/15/19 20:15 Expected date of discharge: 02/07/19 Attending physician: Jaxson Gautam DO Consults: 01/15/19 20:17 Consult Physician Routine Consulting Provider: Emili Smith Consult Reason/Comments: Medical management Do you want consulting provider notified?: Yes Primary care physician: [facility] - Discharge Diagnosis(es) (1) Major depressive disorder, recurrent, severe with psychotic features Allergies Allergy/AdvReac Type Severity Reaction Status Date / Time TRAVIST-D AdvReac Unknown Uncoded 01/15/19 21:52 Vital Signs Temp 98.3 F 01/16/19 04:41 Pulse 88 01/16/19 04:41 Resp 14 01/16/19 04:41 BP 114/59 01/16/19 04:41 Pulse Ox 97 01/15/19 21:14 Intake & Output 01/15/19 01/16/19 01/16/19 17:59 06:59 18:59 Weight 76.2 kg Laboratory Last Values WBC 9.0 k/uL (3.8-10.6) 01/15/19 16:30 RBC 4.68 m/uL (3.80-5.40) 01/15/19 16:30 Hgb 15.1 gm/dL (11.4-16.0) 01/15/19 16:30 Hct 47.1 % (34.0-46.0) H 01/15/19 16:30 MCV 100.6 fL (80.0-100.0) H 01/15/19 16:30 MCH 32.3 pg (25.0-35.0) 01/15/19 16:30 MCHC 32.1 g/dL (31.0-37.0) 01/15/19 16:30 RDW 12.5 % (11.5-15.5) 01/15/19 16:30 Plt Count 241 k/uL (150-450) 01/15/19 16:30 Neutrophils % 68 % 01/15/19 16:30 Lymphocytes % 24 % 01/15/19 16:30 Monocytes % 4 % 01/15/19 16:30 Eosinophils % 2 % 01/15/19 16:30 Basophils % 0 % 01/15/19 16:30 Neutrophils # 6.1 k/uL (1.3-7.7) 01/15/19 16:30 Lymphocytes # 2.2 k/uL (1.0-4.8) 01/15/19 16:30 Monocytes # 0.4 k/uL (0-1.0) 01/15/19 16:30 Eosinophils # 0.2 k/uL (0-0.7) 01/15/19 16:30 Basophils # 0.0 k/uL (0-0.2) 01/15/19 16:30 Sodium 144 mmol/L (137-145) 01/15/19 16:30 Potassium 4.1 mmol/L (3.5-5.1) 01/15/19 16:30 Chloride 113 mmol/L (98-107) H 01/15/19 16:30 Carbon Dioxide 24 mmol/L (22-30) 01/15/19 16:30 Anion Gap 7 mmol/L 01/15/19 16:30 BUN 24 mg/dL (7-17) H 01/15/19 16:30 Creatinine 0.87 mg/dL (0.52-1.04) 01/15/19 16:30 Est GFR (CKD-EPI)AfAm 81 (>60 ml/min/1.73 sqM) 01/15/19 16:30 Est GFR (CKD-EPI)NonAf 70 (>60 ml/min/1.73 sqM) 01/15/19 16:30 Glucose 128 mg/dL (74-99) H 01/15/19 16:30 Calcium 11.2 mg/dL (8.4-10.2) H 01/15/19 16:30 Triglycerides 106 mg/dL (<150) 01/16/19 08:50 Cholesterol 192 mg/dL (<200) 01/16/19 08:50 LDL Cholesterol, Calc 115 mg/dL (0-99) H 01/16/19 08:50 HDL Cholesterol 56 mg/dL (40-60) 01/16/19 08:50 TSH 2.830 mIU/L (0.465-4.680) 01/16/19 08:50 Urine Color Yellow 01/15/19 16:30 Urine Appearance Cloudy (Clear) H 01/15/19 16:30 Urine pH 6.5 (5.0-8.0) 01/15/19 16:30 Ur Specific [place] 1.013 (1.001-1.035) 01/15/19 16:30 Urine Protein Negative (Negative) 01/15/19 16:30 Urine Glucose (UA) Negative (Negative) 01/15/19 16:30 Urine Ketones Negative (Negative) 01/15/19 16:30 Urine Blood Negative (Negative) 01/15/19 16:30 Urine Nitrite Negative (Negative) 01/15/19 16:30 Urine Bilirubin Negative (Negative) 01/15/19 16:30 Urine Urobilinogen <2.0 mg/dL (<2.0) 01/15/19 16:30 Ur Leukocyte Esterase Trace (Negative) H 01/15/19 16:30 Urine RBC <1 /hpf (0-5) 01/15/19 16:30 Urine WBC 8 /hpf (0-5) H 01/15/19 16:30 Ur Squamous Epith Cells 11 /hpf (0-4) H 01/15/19 16:30 Amorphous Sediment Rare /hpf (None) H 01/15/19 16:30 Hyaline Casts 1 /lpf (0-2) 01/15/19 16:30 Urine Mucus Rare /hpf (None) H 01/15/19 16:30 Urine Opiates Screen Not Detected (NotDetected) 01/15/19 16:30 Ur Oxycodone Screen Not Detected (NotDetected) 01/15/19 16:30 Urine Methadone Screen Not Detected (NotDetected) 01/15/19 16:30 Ur Propoxyphene Screen Not Detected (NotDetected) 01/15/19 16:30 Ur Barbiturates Screen Not Detected (NotDetected) 01/15/19 16:30 U Tricyclic Antidepress Not Detected (NotDetected) 01/15/19 16:30 Ur Phencyclidine Scrn Not Detected (NotDetected) 01/15/19 16:30 Ur Amphetamines Screen Not Detected (NotDetected) 01/15/19 16:30 U Methamphetamines Scrn Not Detected (NotDetected) 01/15/19 16:30 U Benzodiazepines Scrn Not Detected (NotDetected) 01/15/19 16:30 Finzel 0.7 mmol/L 01/16/19 08:50 Urine Cocaine Screen Not Detected (NotDetected) 01/15/19 16:30 U Marijuana (THC) Screen Not Detected (NotDetected) 01/15/19 16:30 Serum Alcohol <10 mg/dL 01/15/19 16:30 01/16/19 18:12 IDENTIFYING DATA: 68-year-old female patient HPI: Patient is admitted to the inpatient psychiatric unit on an involuntary ba sis. Petition was done by registered nurse verbalizing "not eating, not sleeping, not caring for her ADLs, not allowing family or [facility] to help her." Patient states that she called the ambulance because she was not eating. Says she's just been eating cottage cheese and peaches for 1 month's time. She has lost weight but does not know how much. She does state that she had some mashed potatoes and meatloaf today but she felt full. She is not sleeping well. She does at home she has not been taking her medications as prescribed. She admits to depression every day. She admits to anxiety says she used to get panic attacks. No recent hallucinations. She says she has not been hungry. She verbalizes that her memory is terrible. She says she thinks that she has Alzheimer's. She says she probably hasn't been not taking her medications because she is scared to take anything. She reports she's not been going to her treatment at [facility] and she doesn't know why. PAST PSYCHIATRIC HISTORY: Patient has recently been in treatment with [facility] but has not been going to her appointments it sounds and relays that she doesn't know why. Most recent psychotropic medications appear to be Lithobid 600 M at bedtime Luvox made 100 more grams twice a day Zyprexa 5 mg at bedtime. She doesn't remember being on Luvox, doesn't remember if it helped. She does remember Zyprexa. she does seem to remember lithium. She feels like her medication probably was not working for her. She does not years ago she had shock treatments. She does see a counselor at [facility] and sees Dr. Snyder for her medications. She denies any history of bipolar disorder. She has had psychiatric hospitalization a few times when she was 23 years old. Denies any history of suicide attempts. PMH: "I don't think so." Per chart history she is on Glucophage, potassium chloride, Synthroid, Lasix, calcium vitamin D, Lipitor, atenolol. ALLERGIES: Travist D MEDICATIONS: Tylenol when necessary, Maalox when necessary, Ativan when necessary, milk of magnesia when necessary, Zofran when necessary, Protonix CHEMICAL DEPENDENCY HISTORY: Patient denies FAMILY PSYCHIATRIC HISTORY: Denies FAMILY CHEMICAL DEPENDENCY HISTORY: None known at this time. SOCIAL HISTORY: She currently lives by herself. She says she does not have a guardian. She's been once and . She has 2 children. She does not currently work. She is on SSI. MENTAL STATUS EXAM: She is alert and cooperative with the interview. Her affect overall is restricted. Her mood is described as "fed up." She denies any current thoughts of harm to self or others. She denies any auditory or visual hallucinations. She is not oriented to place. She is oriented to city and month. She is not oriented to date or year stating that it's "09." She is or iented to day of week. She does not show any agitation. Her insight is limited, judgment shows evidence of recent impairment. STRENGTHS/WEAKNESSES: Strengthsis engaged in outpatient treatment program, although not compliant recently; weaknessesmedication and treatment compliance, cognitive impairment INTELLECTUAL FUNCTIONING: Below average IMPRESSIONS: Major depressive disorder, recurrent, severe; unspecified anxiety disorder; rule out major neurocognitive disorder Current Visit: Yes Status: Acute Priority: Medium (2) Major depressive disorder, recurrent, severe with psychotic features Current Visit: Yes Status: Acute Priority: Medium Hospital Course: PLAN: Patient will be admitted to the inpatient psychiatric unit [facility] on a involuntary basis. Second clinical cert is done based on the patient's depression and lack of care for self, has also been not following up with outpatient treatment. At this time we'll stop Lexapro to help with depression and anxiety we'll monitor her tolerability and consider further titration as needed. We will try to attempt to receive outpatient records from [facility] with medication history. We'll check a lithium level she was recently on lithium multiple seems to have been noncompliant recently. We will look into support systems. Medical consultation will be ordered and Baseline laboratory workup be done the patient. Ativan when necessary as ordered for anxiety. Will add Zoloft 25 mg at bedtime plus Mirapex 0.5 mg by mouth daily at bedtime for restless leg. She also be placed on Risperdal 0.25 mg twice a day. She has a great done of anxiety and will switch from Ativan to clonazepam 01/18/2019: Discussed with patient increase of Zoloft 50 mg by mouth daily at bedtime for depression and anxiety, continue Klonopin until I can get that he titration of Zoloft at least to 75 mg 100, Risperdal 0.25 mg remains at twice a day, will add Megace 40 mg 4 times a day for appetite increase and will use Provigil for focusing concentration and motivation during the daytime which will aid in her being able to get to sleep better at night. The goal is not have her seat during the day decrease depression and decrease anxiety and participate in hughes milieu therapeutic environment. 01/19/2019: Discussed in detail with patient regarding the benefit risk ratio of her following medications including Zoloft and risperidone, Megace, Provigil. Encouraged her to eat at lunchtime today and to engage in hughes milieu activities but states she has difficult time focusing and concentrating. I did encourage her to go anyways to be around other people and see how they handle coping skills except 01/20/2019 discussed with patient that changing from Zoloft to Effexor may be a better bet benefit. She'll be increased to 75 mg by mouth daily at bedtime. Continue Risperdal for agitated psychosis. We'll discontinue Provigil to lack of activation and switch to methylphenidate 10 mg after breakfast. She has minimal skills to take care of herself and will order an MRI for his think she has cortical and temporoparietal atrophy. 01/21/2019: Patient unwilling to sign for MRI and will assume that she has dementia. Will add 5 mg Aricept to bedtime and maintain all other medications as written. She will be followed on 15 minute checks usual protocol for the unit. Supportive care 01/22/2019: patient is still not motivated and non responding to current medications. 15 minute checks. Increase ritalin to 20 mg po qam and add namenda 5 mg po qhs. 01/23/2019: This 68-year-old female has little motivation and appears to start responding to current regimen of medications. 15 minute checks for the maintained. She did have the addition of Namenda last night and increase of Ritalin today. We'll follow and observe today for any medication adjustments needed. 01/24/2019: This is 68-year-old female has little motivation appears to start responded current regimen of medications. Will increase Ritalin to twice a day 20 mg and continue Aricept and Namenda along with Effexor. 01/25/2019: This 68-year-old female has little motivation appears to be childlike in nature. We'll increase her Effexor to 225 mg XR and encourage her to get out of bed and participate. I will try to engage the nursing staff to assist in getting up but due to hughes milieu may be difficult at the present time. 01/26/2019. As discussed above the 68-year-old female has more motivation today and still appears to be childlike in nature. Her medications remain as outlined in the chart. Effexor for mood, Aricept and Namenda for early neurocognitive disorder mild, Risperdal 0.25 mg twice a day for mild psychosis, Megace 80 mg 4 times a day for appetite. Anticipate discharge within the next couple days to get house. 01/27/2019: No change in medications today. She'll remain on the online medications Effexor 70 Namenda Risperdal Megace and Ritalin. She'll remain on 15 minute checks as usual. Possible discharge on Thursday01/28/2019: Appetite is increased so we'll maintain the Megace 80 mg 4 times a day she remains on her rest of her medications Effexor Namenda Risperdal Megace. 15 minute checks as usual. Looking at possible AFC home on Thursday01/31/2019: On 01/28/[address] alcala an insurance [employer] and he stated I should raise the Effexor to 300 mg which I did on 01/28/2019. She still remains hopeless helpless and overwhelmed. Looking at possible AFC placement this week as soon as one is available and still arguing maximum amount of assistance to this woman and continues to be on Effexor Namenda Risperdal Megace and Ritalin. 02/01/2019: The Effexor XR appears to have assisted that she is slow to resolve her depressive symptoms which include hopeless helpless and overwhelmed and suicidal ideation by overdose. Those thoughts are decreasing every day as she expected other peers. 02/02/2019: Patient has on 15 minute checks will be maintained on on this until she leaves. Currently the combination of medicines including Effexor Namenda Risperdal Megace and Ritalin and stabilize patient. 02/04/2019: Patient remains on 15 minute checks and will be maintained as long she is on this unit. Currently combinations of medications include Effexor 300 mg, Namenda 5 mg twice a day, Risperdal 0.5 mg twice a day Megace 80 mg4 times a day and on Ritalin 20 mg twice a day.placement is still an issue Discharge medications: Calcium Carbonate/Vitamin D3 [Calcium 600-Vit D3 400 Tablet] 2 tab PO DAILY 0 01/10/19 [History] Atenolol 25 mg PO DAILY 30 Days #30 tablet 02/07/19 [Rx] Atorvastatin Calcium [Lipitor] 40 mg PO DAILY 30 Days #30 tablet 02/07/19 [Rx] Donepezil [Aricept] 10 mg PO HS 30 Days #30 tab 02/07/19 [Rx] Levothyroxine Sodium [Synthroid] 100 mcg PO DAILY 30 Days #30 tab 02/07/19 [Rx] Megestrol [Megace] 80 mg PO QID 30 Days #120 tab 02/07/19 [Rx] Memantine [Namenda] 10 mg PO DAILY 30 Days #30 tab 02/07/19 [Rx] Methylphenidate HCl [Ritalin] 20 mg PO AC-BID 30 Days #120 tab 02/07/19 [Rx] Pantoprazole [Protonix] 40 mg PO AC-BRKFST 30 Days #30 tablet. 02/07/19 [Rx] Pramipexole [Mirapex] 0.5 mg PO HS 30 Days #30 tab 02/07/19 [Rx] Venlafaxine HCl ER [Effexor XR] 300 mg PO DAILY 30 Days #120 cap.er.24h 02/07/19 [Rx] clonazePAM [KlonoPIN] 0.25 mg PO BID 30 Days #60 tab 02/07/19 [Rx] risperiDONE [RisperDAL] 0.5 mg PO BID 30 Days #60 tab 02/07/19 [Rx] Mental status examination time of discharge: The patient presents alert, pleasant, and cooperative. There calmly seated without any agitated behavior. [she] reports that [her] mood is good. Affect is congruent and euthymic. [she] deny having any suicidal or homicidal ideation intent or plan. [she] denies any auditory or visual hallucinations. There is no evidence of any delusional thought content. [her] thought process is linear and goal-directed. [her] speech is fluent and nonpressured. [her] memory and concentration is grossly intact for the purposes of this session. she is being discharged to intermediate transition to enable further care for her and also make sure she takes her medication needs and self-care. Patient Condition at Discharge: Stable Plan - Discharge Summary Discharge Rx Participant: Yes New Discharge Prescriptions: New Donepezil [Aricept] 10 mg PO HS 30 Days #30 tab Venlafaxine HCl ER [Effexor XR] 300 mg PO DAILY 30 Days #120 cap.er.24h clonazePAM [KlonoPIN] 0.25 mg PO BID 30 Days #60 tab Megestrol [Megace] 80 mg PO QID 30 Days #120 tab Pramipexole [Mirapex] 0.5 mg PO HS 30 Days #30 tab Memantine [Namenda] 10 mg PO DAILY 30 Days #30 tab Pantoprazole [Protonix] 40 mg PO AC-BRKFST 30 Days #30 tablet. risperiDONE [RisperDAL] 0.5 mg PO BID 30 Days #60 tab Methylphenidate HCl [Ritalin] 20 mg PO AC-BID 30 Days #120 tab Continue Calcium Carbonate/Vitamin D3 [Calcium 600-Vit D3 400 Tablet] 2 tab PO DAILY Atenolol 25 mg PO DAILY 30 Days #30 tablet Atorvastatin Calcium [Lipitor] 40 mg PO DAILY 30 Days #30 tablet Levothyroxine Sodium [Synthroid] 100 mcg PO DAILY 30 Days #30 tab Discontinued Furosemide [Lasix] 40 mg PO DAILY metFORMIN HCL [Glucophage] 500 mg PO BID Potassium Chloride 8 meq PO DAILY OLANZapine [ZyPREXA] 5 mg PO HS Finzel Carbonate [Lithobid] 600 mg PO HS fluvoxaMINE MALEATE [Fluvoxamine Maleate] 100 mg PO BID Discharge Medication List Calcium Carbonate/Vitamin D3 [Calcium 600-Vit D3 400 Tablet] 2 tab PO DAILY 01/10/19 [History] Atenolol 25 mg PO DAILY 30 Days #30 tablet 02/07/19 [Rx] Atorvastatin Calcium [Lipitor] 40 mg PO DAILY 30 Days #30 tablet 02/07/19 [Rx] Donepezil [Aricept] 10 mg PO HS 30 Days #30 tab 02/07/19 [Rx] Levothyroxine Sodium [Synthroid] 100 mcg PO DAILY 30 Days #30 tab 02/07/19 [Rx] Megestrol [Megace] 80 mg PO QID 30 Days #120 tab 02/07/19 [Rx] Memantine [Namenda] 10 mg PO DAILY 30 Days #30 tab 02/07/19 [Rx] Methylphenidate HCl [Ritalin] 20 mg PO AC-BID 30 Days #120 tab 02/07/19 [Rx] Pantoprazole [Protonix] 40 mg PO AC-BRKFST 30 Days #30 tablet.dr 02/07/19 [Rx] Pramipexole [Mirapex] 0.5 mg PO HS 30 Days #30 tab 02/07/19 [Rx] Venlafaxine HCl ER [Effexor XR] 300 mg PO DAILY 30 Days #120 cap.er.24h 02/07/19 [Rx] clonazePAM [KlonoPIN] 0.25 mg PO BID 30 Days #60 tab 02/07/19 [Rx] risperiDONE [RisperDAL] 0.5 mg PO BID 30 Days #60 tab 02/07/19 [Rx] Follow up Appointment(s)/Referral(s): [facility] [Primary Care Provider] - 1-2 days Discharge Disposition: OTHER INSTITUTION NOT DEFINED
[2019-02-07 15:11] VITALS: BMI 35.1
== END 2019-02-07 17:34 | disposition home or self-care (01) | DRG 885 ==
LOC: EC 15:15 → 3MHU 20:15
PROVIDERS: ADMIT Psychiatry & Neurology Psychiatry; ATTEND Psychiatry & Neurology Psychiatry
DX: F33.3 Major depressive disorder, recurrent, severe with psychotic symptoms (principal); R45.851 Suicidal ideations; E22.1 Hyperprolactinemia; F41.0 Panic disorder [episodic paroxysmal anxiety]; F50.9 Eating disorder, unspecified; E78.1 Pure hyperglyceridemia; E78.5 Hyperlipidemia, unspecified; G25.81 Restless legs syndrome; I10 Essential (primary) hypertension; K27.9 Peptic ulcer, site unspecified, unspecified as acute or chronic, without hemorrhage or perforation; Z79.84 Long term (current) use of oral hypoglycemic drugs; Z79.890 Hormone replacement therapy; Z79.899 Other long term (current) drug therapy; Z90.710 Acquired absence of both cervix and uterus; T43.596A Underdosing of other antipsychotics and neuroleptics, initial encounter; Z91.128 Patient's intentional underdosing of medication regimen for other reason; Z60.2 Problems related to living alone; K29.70 Gastritis, unspecified, without bleeding; Z88.8 Allergy status to other drugs, medicaments and biological substances; B35.1 Tinea unguium; F01.50 Vascular dementia, unspecified severity, without behavioral disturbance, psychotic disturbance, mood disturbance, and anxiety
CPT/HCPCS: 36415; 80048; 80053; 80061; 80178; 80306; 80320; 81001; 82075; 83036; 84443; 85025; 87086; 93005; 96372; 99285

== ENCOUNTER → 2019-07-14 | Outpatient (CLI) | payer MEDICARE, OTHER ==
--- NOTE | 2019-07-18 09:29 | MM ---
Reason for exam: screening (asymptomatic). Last mammogram was performed 1 year ago. History: Patient is postmenopausal. Benign stereotactic core biopsy of the right breast, December 15, 2002. Core biopsy of the left breast. 2 core biopsies of the right breast. Physical Findings: A clinical breast exam by your physician is recommended on an annual basis and results should be correlated with mammographic findings. MG 3D Screening Mammo W/Cad Bilateral CC and MLO view(s) were taken. Prior study comparison: July 08, 2018, bilateral MG 3d screening mammo w/cad. July 07, 2017, bilateral MG 3d screening mammo w/cad. The breast tissue is heterogeneously dense. This may lower the sensitivity of mammography. Previous mammotome biopsy in the right breast. No significant changes when compared with prior studies. ASSESSMENT: Negative, BI-RAD 1 RECOMMENDATION: Routine screening mammogram of both breasts in 1 year.
== END | disposition home or self-care (01) ==
LOC: RADMAMWWP 13:26
PROVIDERS: ATTEND Family Medicine
DX: Z12.31 Encounter for screening mammogram for malignant neoplasm of breast (principal)
CPT/HCPCS: 77063; 77067

== ENCOUNTER 2019-10-04 15:41 | Emergency (ER) | payer MEDICARE, OTHER ==
[2019-10-04 15:47] VITALS: TEMP 98.7
[2019-10-04] MEDS ORDERED: SODIUM CHLORIDE 0.9% 1,000 ML IV STA (16:49)
[2019-10-04] MEDS ORDERED: DIAZEPAM 5 MG/ML 2 ML INJ IVP STA (16:50)
[2019-10-04 17:00] LABS: Basophils # (A) 0.1 k/uL (0-0.2); Basophils % (A) 1 %; Eosinophils # (A) 0.1 k/uL (0-0.7); Eosinophils % (A) 1 %; HCT 43.1 % (34.0-46.0); HGB 14.6 gm/dL (11.4-16.0); Lymphocytes # (A) 2.5 k/uL (1.0-4.8); Lymphocytes % (A) 29 %; MCH 31.8 pg (25.0-35.0); MCHC 33.9 g/dL (31.0-37.0); MCV 93.8 fL (80.0-100.0); Mean Platelet Volume 6.3; Monocytes # (A) 0.3 k/uL (0-1.0); Monocytes % (A) 4 %; Neutrophils # (A) 5.7 k/uL (1.3-7.7); Neutrophils % (A) 64 %; Platelet Count 286 k/uL (150-450); RDW 12.2 % (11.5-15.5); WBC 8.9 k/uL (3.8-10.6)
[2019-10-04 17:05] LABS: ALT 32 U/L (9-52); AST 25 U/L (14-36); African American GFR (CKD) 67 (>60 ml/min/1.73 sqM); Albumin 4.8 g/dL (3.5-5.0); Alcohol <10 mg/dL; Alkaline Phosphatase 99 U/L (38-126); Amylase 51 U/L (30-110); Anion Gap 15 mmol/L; Blood Urea Nitrogen 26 mg/dL (7-17); Calcium 10.4 mg/dL (8.4-10.2); Carbon Dioxide 23 mmol/L (22-30); Chloride 104 mmol/L (98-107); Glucose 158 mg/dL (74-99); Non-African American GFR(CKD) 58 (>60 ml/min/1.73 sqM); Potassium 3.7 mmol/L (3.5-5.1); Sodium 142 mmol/L (137-145); Total Bilirubin 0.7 mg/dL (0.2-1.3)
--- NOTE | 2019-10-04 17:40 | XR ---
EXAMINATION TYPE: XR KUB DATE OF EXAM: 10/04/2019 COMPARISON: 01/10/2019 HISTORY: Anxiety and constipation TECHNIQUE: 2 views upright FINDINGS: There is no sign of intestinal obstruction or pneumoperitoneum. Fecal pattern is fairly nor mal. Lung bases are clear of consolidation. There are no pathologic calcifications over the kidneys. IMPRESSION: Nonacute abdomen. No significant constipation. No adverse change.
[2019-10-04] MEDS ORDERED: SODIUM CHLORIDE 0.9% 1,000 ML IV ONE ×2 (17:47→19:24)
--- NOTE | 2019-10-04 18:42 | ED ---
Anxiety HPI - General Chief Complaint: Anxiety Stated Complaint: Anxiety, bowel trouble Time Seen by Provider: 10/04/19 16:09 Source: patient, RN notes reviewed, old records reviewed Mode of arrival: wheelchair - History of Present Illness Initial Comments: This patient's a 69-year-old female with severe core phobia, and anxiety. She presents today with worsening anxiety over the past 3 days. She also has had some trouble with her bowels. She states that she does not have a bowel movement and fell every 4-5 days. She reports that she's had history with chronic constipation. Patient states that she's been trying MiraLAX and stool softeners with no significant relief. Patient states that her anxiety is more in the more severe over the past 3 days. She takes Valium 5 mg 3 times a day and that still not managing her severe anxiety. Patient reports that Dr. salvador is her psychiatrist. - Related Data Home Medications: Home Medications Medication Instructions Recorded Confirmed Calcium Carbonate/Vitamin D3 2 tab PO DAILY 01/10/19 10/04/19 [Calcium 600-Vit D3 400 Tablet] Diazepam [Valium] 5 mg PO TID 10/04/19 10/04/19 Docusate [Colace] 100 mg PO BID 10/04/19 10/04/19 Furosemide [Lasix] 40 mg PO DAILY 10/04/19 10/04/19 Lactulose 10 gm PO DAILY PRN 10/04/19 10/04/19 Rudy Carbonate 1,200 mg PO DAILY 10/04/19 10/04/19 Mirtazapine [Remeron] 45 mg PO HS 10/04/19 10/04/19 Oxybutynin Chloride [Ditropan XL] 10 mg PO BID 10/04/19 10/04/19 Polyethylene Glycol 3350 [Miralax] 17 gm PO DAILY PRN 10/04/19 10/04/19 Potassium Chloride [K-Tab ER] 8 meq PO DAILY 10/04/19 10/04/19 Venlafaxine HCl ER [Effexor XR] 300 mg PO DAILY 10/04/19 10/04/19 metFORMIN HCL [Glucophage] 500 mg PO BID 10/04/19 10/04/19 Previous Rx's Medication Instructions Recorded Atenolol 25 mg PO DAILY 30 Days #30 tablet 02/07/19 Atorvastatin Calcium [Lipitor] 40 mg PO DAILY 30 Days #30 tablet 02/07/19 Levothyroxine Sodium [Synthroid] 100 mcg PO DAILY 30 Days #30 tab 02/07/19 Allergies/Adverse Reactions: Allergies Allergy/AdvReac Type Severity Reaction Status Date / Time clemastine AdvReac ANXIETY Verified 10/04/19 19:02 phenylpropanolamine AdvReac ANXIETY Verified 10/04/19 19:02 Review of Systems ROS Statement: Those systems with pertinent positive or pertinent negative responses have been documented in the HPI. ROS Other: All systems not noted in ROS Statement are negative. Past Medical History Past Medical History: Hyperlipidemia, Hypertension, Skin Disorder, Thyroid Disorder Additional Past Medical History / Comment(s): Dry, scaly bilaterial feet. Chronic vomiting per patient History of Any Multi-Drug Resistant Organisms: None Reported Past Surgical History: Hysterectomy, Tubal Ligation Past Anesthesia/Blood Transfusion Reactions: No Reported Reaction Past Psychological History: Anxiety, Depression Smoking Status: Never smoker Past Alcohol Use History: None Reported Past Drug Use History: None Reported - Past Family History Father Family Medical History: Unable to Obtain Additional Family Medical History / Comment(s): Patient states that she did not know her father. Mother Family Medical History: Unable to Obtain Additional Family Medical History / Comment(s): Patient states that she does not know. Daughter(s) Family Medical History: No Reported History Son(s) Family Medical History: No Reported History General Exam - General Exam Comments Initial Comments: Very anxious hyperverbal 69-year-old female. Limitations: no limitations General appearance: alert, in no apparent distress Head exam: Present: atraumatic, normocephalic, normal inspection Eye exam: Present: normal appearance, PERRL, EOMI. Absent: scleral icterus, conjunctival injection, periorbital swelling ENT exam: Present: normal exam, mucous membranes moist Neck exam: Present: normal inspection. Absent: tenderness, meningismus, lymphadenopathy Respiratory exam: Present: normal lung sounds bilaterally. Absent: respiratory distress, wheezes, rales, rhonchi, stridor Cardiovascular Exam: Present: regular rate, normal rhythm, normal heart sounds. Absent: systolic murmur, diastolic murmur, rubs, gallop, clicks GI/Abdominal exam: Present: soft, normal bowel sounds. Absent: distended, tenderness, guarding, rebound, rigid Extremities exam: Present: normal inspection, full ROM, normal capillary refill. Absent: tenderness, pedal edema, joint swelling, calf tenderness Back exam: Present: normal inspection Neurological exam: Present: alert, oriented X3, CN II-XII intact Psychiatric exam: Present: anxious. Absent: normal affect Skin exam: Present: warm, dry, intact, normal color. Absent: rash Course Vital Signs 10/04/19 10/04/19 10/04/19 15:43 16:19 16:20 Temperature 98.7 F Pulse Rate 98 Respiratory 24 Rate Blood Pressure 151/77 O2 Sat by Pulse 95 95 95 Oximetry 10/04/19 10/04/19 16:30 19:39 Temperature Pulse Rate 81 Respiratory 18 Rate Blood Pressure 137/99 126/82 O2 Sat by Pulse 98 Oximetry Medical Decision Making - Medical Decision Making Patient 69-year-old female with severe anxiety, concerns for constipation which is chronic as well as her value not be enough to manage her anxiety. She was quite erratic and anxious upon arrival high for verbal. With severe fidgeting as well. Patient was given IV fluids, lab work obtained. X-ray shows normal gallop bowel gas pattern and no severe constipation at this time. Patient was not able to provide a urine sample after receiving 2 L of fluids and straight cath was completed. Urinalysis negative for infection. Blood work was otherwise unremarkable. I discussed with the severe anxiety and patient's symptoms to follow to have Patient evaluated by EPS and ACT team which she follows with. Family states that Patient recently over discharge and outpatient follow-up with Dr. york evening team. They will check on the Patient tomorrow. That she does not need to be medically. She denies any suicidal thoughts. She does appear to significantly anxious but discussed no further medication issues or any maxed out on diazepam. Patient understands treatment plan will comply. - Lab Data Result diagrams: 10/04/19 16:42 10/04/19 16:42 Lab Results 10/04/19 10/04/19 10/04/19 Range/Units 16:42 16:42 19:16 WBC 8.9 (3.8-10.6) k/uL RBC 4.60 (3.80-5.40) m/uL Hgb 14.6 (11.4-16.0) gm/dL Hct 43.1 (34.0-46.0) % MCV 93.8 (80.0-100.0) fL MCH 31.8 (25.0-35.0) pg MCHC 33.9 (31.0-37.0) g/dL RDW 12.2 (11.5-15.5) % Plt Count 286 (150-450) k/uL Neutrophils % 64 % Lymphocytes % 29 % Monocytes % 4 % Eosinophils % 1 % Basophils % 1 % Neutrophils # 5.7 (1.3-7.7) k/uL Lymphocytes # 2.5 (1.0-4.8) k/uL Monocytes # 0.3 (0-1.0) k/uL Eosinophils # 0.1 (0-0.7) k/uL Basophils # 0.1 (0-0.2) k/uL Sodium 142 (137-145) mmol/L Potassium 3.7 (3.5-5.1) mmol/L Chloride 104 (98-107) mmol/L Carbon Dioxide 23 (22-30) mmol/L Anion Gap 15 mmol/L BUN 26 H (7-17) mg/dL Creatinine 1.01 (0.52-1.04) mg/dL Est GFR (CKD-EPI)AfAm 67 (>60 ml/min/1.73 sqM) Est GFR (CKD-EPI)NonAf 58 (>60 ml/min/1.73 sqM) Glucose 158 H (74-99) mg/dL Calcium 10.4 H (8.4-10.2) mg/dL Total Bilirubin 0.7 (0.2-1.3) mg/dL AST 25 (14-36) U/L ALT 32 (9-52) U/L Alkaline Phosphatase 99 (38-126) U/L Total Protein 8.0 (6.3-8.2) g/dL Albumin 4.8 (3.5-5.0) g/dL Amylase 51 (30-110) U/L Lipase 78 (23-300) U/L Urine Color Light Yellow Urine Appearance Clear (Clear) Urine pH 7.5 (5.0-8.0) Ur Specific [place] 1.011 (1.001-1.035) Urine Protein Negative (Negative) Urine Glucose (UA) Negative (Negative) Urine Ketones Trace H (Negative) Urine Blood Negative (Negative) Urine Nitrite Negative (Negative) Urine Bilirubin Negative (Negative) Urine Urobilinogen <2.0 (<2.0) mg/dL Ur Leukocyte Esterase Negative (Negative) Urine Opiates Screen Not Detected (NotDetected) Ur Oxycodone Screen Not Detected (NotDetected) Urine Methadone Screen Not Detected (NotDetected) Ur Propoxyphene Screen Not Detected (NotDetected) Ur Barbiturates Screen Not Detected (NotDetected) U Tricyclic Antidepress Not Detected (NotDetected) Ur Phencyclidine Scrn Not Detected (NotDetected) Ur Amphetamines Screen Not Detected (NotDetected) U Methamphetamines Scrn Not Detected (NotDetected) U Benzodiazepines Scrn Detected H (NotDetected) Urine Cocaine Screen Not Detected (NotDetected) U Marijuana (THC) Screen Not Detected (NotDetected) Serum Alcohol <10 mg/dL Disposition Clinical Impression: Chronic constipation, Anxiety Disposition: ADMITTED IP TO THIS [facility] Condition: Stable Instructions (If sedation given, give patient instructions): Generalized Anxiety Disorder (ED) Additional Instructions: Please use medication as discussed. Follow up with ACT team. Please follow up with family doctor if symptoms have not improved over the next two days. Please return to the emergency room if your symptoms increase or worsen or for any other concerns. Is patient prescribed a controlled substance at d/c from ED?: No Referrals: [facility] [Primary Care Provider] - 1-2 days Time of Disposition: 20:50
[2019-10-04 19:34] LABS: Appearance,Urine Clear (Clear); Bilirubin,Urine Negative (Negative); Blood,Urine Negative (Negative); Color,Urine Light Yellow; Glucose,Urine (UA) Negative (Negative); Ketones,Urine Trace (Negative); Leukocyte Esterase,Urine Negative (Negative); Nitrite,Urine Negative (Negative); PH, Urine 7.5 (5.0-8.0); Protein,Urine Negative (Negative); Specific Gravity,Urine 1.011 (1.001-1.035); Urobilinogen,Urine <2.0 mg/dL (<2.0)
[2019-10-04 19:41] VITALS: BP 126/82; PULSE 81; RESP 18
[2019-10-04 19:50] LABS: Amphetamine Screen,Urine Not Detected (NotDetected); Barbiturate Screen,Urine Not Detected (NotDetected); Benzodiazepines Screen,Urine Detected (NotDetected); Cocaine Screen,Urine Not Detected (NotDetected); Methadone Screen, Urine Not Detected (NotDetected); Opiate Screen,Urine Not Detected (NotDetected); Oxycodone Screen, Urine Not Detected (NotDetected); Phencyclidine Screen,Urine Not Detected (NotDetected); Tricyclic Antidepressant,Urine Not Detected (NotDetected); Urn Cannabinoid Scrn Not Detected (NotDetected)
== END 2019-10-04 21:34 | disposition other institution (70) ==
LOC: EC 15:41
DX: F41.9 Anxiety disorder, unspecified (principal); K59.09 Other constipation; F32.9 Major depressive disorder, single episode, unspecified; Z88.8 Allergy status to other drugs, medicaments and biological substances; Z79.84 Long term (current) use of oral hypoglycemic drugs; Z79.899 Other long term (current) drug therapy
CPT/HCPCS: 36415; 80053; 82150; 83690; 85025; 81003; 80306; 74018; 99285; 51701; 96374; 96361 ×4; G0480; J3360; 80320

== ENCOUNTER 2019-10-22 15:53 | Emergency (ER) | payer MEDICARE, OTHER ==
[2019-10-22 15:57] VITALS: BP 142/79; RESP 18; TEMP 98.5
--- NOTE | 2019-10-22 16:41 | XR ---
EXAMINATION TYPE: XR KUB DATE OF EXAM: 10/22/2019 COMPARISON: 10/04/2019 HISTORY: Constipation TECHNIQUE: 2 views FINDINGS: There is retained fecal material in the large bowel. There is no sign of free air. There ar e no pathologic calcifications over the kidneys. Lung bases are clear. Bony structures are intact. Th ere is no sign of a mass. IMPRESSION: Constipation similar to last exam. No free air.
[2019-10-22] MEDS ORDERED: MAGNESIUM CITRATE 296 ML BOTTLE PO ONE (18:12)
--- NOTE | 2019-10-22 18:13 | ED ---
Abdominal Pain HPI - General Chief Complaint: Abdominal Pain Stated Complaint: Constipated Time Seen by Provider: 10/22/19 16:01 Source: patient Mode of arrival: ambulatory Limitations: no limitations - History of Present Illness Initial Comments: patient is 69-year-old female of chronic constipation is presenting to the emergency department with a chief complaint of constipation.patient reports she has not had a bowel movement in 14 days. She reports that she eats fiber heavy diet. Although she still not having bowel movements. Patient takes Colace twice daily. She reports typically she has a bowel movement after a couple days but has never this long. Denies any abdominal distention or pain. Denies any night sweats fevers or chills. denies nausea vomiting diarrhea - Related Data Home Medications Medication Instructions Recorded Confirmed Calcium Carbonate/Vitamin D3 2 tab PO DAILY 01/10/19 10/04/19 [Calcium 600-Vit D3 400 Tablet] Diazepam [Valium] 5 mg PO TID 10/04/19 10/04/19 Docusate [Colace] 100 mg PO BID 10/04/19 10/04/19 Furosemide [Lasix] 40 mg PO DAILY 10/04/19 10/04/19 Lactulose 10 gm PO DAILY PRN 10/04/19 10/04/19 Mirtazapine [Remeron] 45 mg PO HS 10/04/19 10/04/19 Oxybutynin Chloride [Ditropan XL] 10 mg PO BID 10/04/19 10/04/19 Polyethylene Glycol 3350 [Miralax] 17 gm PO DAILY PRN 10/04/19 10/04/19 Potassium Chloride [K-Tab ER] 8 meq PO DAILY 10/04/19 10/04/19 Venlafaxine HCl ER [Effexor XR] 300 mg PO DAILY 10/04/19 10/04/19 metFORMIN HCL [Glucophage] 500 mg PO BID 10/04/19 10/04/19 Previous Rx's Medication Instructions Recorded Atenolol 25 mg PO DAILY 30 Days #30 tablet 02/07/19 Atorvastatin Calcium [Lipitor] 40 mg PO DAILY 30 Days #30 tablet 02/07/19 Levothyroxine Sodium [Synthroid] 100 mcg PO DAILY 30 Days #30 tab 02/07/19 Allergies Allergy/AdvReac Type Severity Reaction Status Date / Time clemastine AdvReac ANXIETY Verified 10/22/19 15:57 phenylpropanolamine AdvReac ANXIETY Verified 10/22/19 15:57 Review of Systems ROS Statement: Those systems with pertinent positive or pertinent negative responses have been documented in the HPI. ROS Other: All systems not noted in ROS Statement are negative. Past Medical History Past Medical History: Hyperlipidemia, Hypertension, Skin Disorder, Thyroid Disorder Additional Past Medical History / Comment(s): Dry, scaly bilaterial feet. Chronic vomiting per patient History of Any Multi-Drug Resistant Organisms: None Reported Past Surgical History: Hysterectomy, Tubal Ligation Past Anesthesia/Blood Transfusion Reactions: No Reported Reaction Past Psychological History: Anxiety, Depression Smoking Status: Never smoker Past Alcohol Use History: None Reported Past Drug Use History: None Reported - Past Family History Father Family Medical History: Unable to Obtain Additional Family Medical History / Comment(s): Patient states that she did not know her father. Mother Family Medical History: Unable to Obtain Additional Family Medical History / Comment(s): Patient states that she does not know. Daughter(s) Family Medical History: No Reported History Son(s) Family Medical History: No Reported History General Exam Limitations: no limitations General appearance: alert, in no apparent distress Head exam: Present: atraumatic, normocephalic, normal inspection Eye exam: Present: normal appearance Pupils: Present: normal accommodation ENT exam: Present: normal exam, normal oropharynx, mucous membranes moist Neck exam: Present: normal inspection, full ROM Respiratory exam: Present: normal lung sounds bilaterally Cardiovascular Exam: Present: regular rate, normal rhythm, normal heart sounds GI/Abdominal exam: Present: soft, normal bowel sounds. Absent: distended, tenderness, guarding, bruit, pulsatile mass, hernia Course Vital Signs 10/22/19 10/22/19 15:56 18:18 Temperature 98.5 F Pulse Rate 95 90 Respiratory 18 18 Rate Blood Pressure 142/79 142/79 O2 Sat by Pulse 97 98 Oximetry Medical Decision Making - Medical Decision Making patient is 69-year-old female with history of chronic constipation presenting to emergency Department with a chief complaint of constipation. Apparently she has not had a bowel movement in 14 days. On exam her abdomen is soft nontender and nondistended. KUB shows some rectal impaction. Patient was given a soapsuds enema and she was able to have a bowel movement. She had a big bowel movement. Patient has no nausea vomiting or diarrhea. I gave the patient mag citrate and advised to take half of thebottle and wait several hours to have bowel movement. If nothing occurs, she can take the rest of it. Patient advised to otherwise use MiraLAX in the morning. Patient asked to follow with primary care. Strict return parameters were thoroughly discussed with patient was understanding and agreeable. Case discussed with physician. Disposition Clinical Impression: Constipation Disposition: HOME SELF-CARE Condition: Stable Instructions (If sedation given, give patient instructions): Constipation (DC) Additional Instructions: Please take half a medication and with 12 hours for a bowel movement. If no bowel movement take the other half. Follow-up primary care. Please return to emergency department if symptoms worsen. Eat food with a lot of fiber. Is patient prescribed a controlled substance at d/c from ED?: No Referrals: [facility] [Primary Care Provider] - 1-2 days Time of Disposition: 18:13
[2019-10-22 18:19] VITALS: PULSE 90
== END 2019-10-22 18:29 | disposition home or self-care (01) ==
LOC: EC 15:53
DX: K59.09 Other constipation (principal); I10 Essential (primary) hypertension; E07.9 Disorder of thyroid, unspecified; F41.9 Anxiety disorder, unspecified; F32.9 Major depressive disorder, single episode, unspecified; Z79.899 Other long term (current) drug therapy; Z88.8 Allergy status to other drugs, medicaments and biological substances
CPT/HCPCS: 74018; 99284